=== PATIENT | male | born 1970 | race Caucasian/White ===

== ENCOUNTER 2016-08-19 00:39 | Emergency (ER) | payer MEDICAID ==
[2016-08-02 01:57] VITALS: BMI 35.0
[~2016-08-19 00:39] MED LIST: ADVIL200 MG PO; ASPIRIN 81 MG E81 MG PO; ASPIRIN325 MG PO; ATIVAN1 MG PO; AUGMENTIN 500-11 TA1 PO; BACTRIM DS TABL1 TAB PO; BAYER CHEWABLE81 MG PO; BUSPAR 15 MG TA15 MG PO; BYSTOLIC10 MG PO; BYSTOLIC5 MG PO; DEPAKOTE125 MG PO; DEPAKOTE250 MG PO; DEPAKOTE500 MG PO; DILANTIN100 MG PO; ELAVIL10 MG PO; HYDROCODONE-APA1 TAB PO; ISOSORBIDE MONO30 M1 PO; ISOSORBIDE MONO60 M1 PO; KEPPRA1000 MG PO; KEPPRA500 MG PO; LISINOPRIL2.5 MG GT; LITHIUM CARBON300 MG PO; LOPRESSOR25 MG PO; NICODERM C1 PATCH .3 TRANSDERM; NORCO 7.5/325 T1 TA1 PO; NORVASC10 MG PO; NORVASC5 MG PO; PAXIL20 MG PO; PAXIL40 MG PO; PHENOBARBITAL97.2 MG PO; PHENYTEK300 MG PO; PLAVIX75 MG PO; RANEXA1000 MG PO; SEROQUEL100 MG PO; STERAPRED DS 1010 MG PO; ULTRAM50 MG PO; XANAX0.25 MG; XANAX0.5 MG PO; ZIAC; ZOCOR20 MG PO; ZOCOR40 MG PO; ZOLOFT25 MG PO
[2016-08-19 01:27] LABS: BASOPHILS 0.3 % (0.0-2.0); EOSINOPHILS 4.2 % (0-7); HEMATOCRIT 39.6 % (42.0-54.0); HEMOGLOBIN 13.3 g/dL (13.5-17.5); IMMATURE GRANULOCYTES 0.3 % (0-5); LYMPHOCYTES 41.9 % (15-50); MCHC 33.6 g/dL (31.0-37.0); MCV 101.3 fL (80.0-100.0); MEAN PLATELET VOLUME 9.8 fL (7.4-10.4); MONOCYTES 9.3 % (2-11); PLATELET COUNT 212 10x3/uL (130-400); RBC 3.91 10x6/uL (4.20-6.10); RDW 12.9 % (11.5-14.5); WBC 7.7 10x3/uL (4.8-10.8)
[2016-08-19 01:37] LABS: ALBUMIN 3.7 g/dL (3.4-5.0); ALKALINE PHOSPHATASE 75 U/L (46-116); ALT (SGPT) 80 U/L (10-68); BILIRUBIN - TOTAL 0.29 mg/dL (0.2-1.3); CALC OSMOLALITY 277 mosm/kg (275-300); CALCIUM 9.5 mg/dL (8.5-10.1); CARBON DIOXIDE 25.1 mmol/L (21.0-32.0); CHLORIDE - SERUM 102 mmol/L (98-107); CREATININE - SERUM 0.9 mg/dL (0.6-1.3); GLUCOSE 128 mg/dL (74-106); POTASSIUM - SERUM 3.7 mmol/L (3.5-5.1); PROTEIN - SERUM 7.1 g/dL (6.4-8.2); SODIUM 138 mmol/L (136-145); UREA NITROGEN 12 mg/dL (7-18); eGFR NON AFRICAN AMERICAN > 90 mL/min (90-120)
[2016-08-19 01:48] LABS: CKMB 4.3 U/L (0.0-3.6); CREATINE KINASE 541 UL (21-232)
[2016-08-19 01:52] LABS: TROPONIN-I < 0.017 ng/mL (0.000-0.060)
== END 2016-08-19 05:44 | disposition home or self-care (01) ==
LOC: D.ER 00:39
PROVIDERS: Emergency Medicine
DX: R07.9 Chest pain, unspecified (principal); I25.10 Atherosclerotic heart disease of native coronary artery without angina pectoris; F17.200 Nicotine dependence, unspecified, uncomplicated

== ENCOUNTER 2016-10-03 16:28 | Emergency (ER) | payer MEDICAID ==
[2016-08-02 01:57] VITALS: BMI 35.0
[2016-10-03 17:10] LABS: BASOPHILS 0.5 % (0.0-2.0); EOSINOPHILS 5.3 % (0-7); HEMATOCRIT 44.9 % (42.0-54.0); HEMOGLOBIN 14.9 g/dL (13.5-17.5); IMMATURE GRANULOCYTES 0.8 % (0-5); LYMPHOCYTES 37.8 % (15-50); MCH 34.1 pg (26.0-34.0); MCHC 33.2 g/dL (31.0-37.0); MCV 102.7 fL (80.0-100.0); MEAN PLATELET VOLUME 9.4 fL (7.4-10.4); MONOCYTES 10.9 % (2-11); NEUTROPHILS 44.7 % (40-80); PLATELET COUNT 217 10x3/uL (130-400); RBC 4.37 10x6/uL (4.20-6.10); RDW 12.8 % (11.5-14.5); WBC 8.3 10x3/uL (4.8-10.8)
[2016-10-03 17:26] LABS: ALBUMIN 3.9 g/dL (3.4-5.0); ALKALINE PHOSPHATASE 78 U/L (46-116); ALT (SGPT) 89 U/L (10-68); AMYLASE - SERUM 27 U/L (25-115); BILIRUBIN - TOTAL 0.32 mg/dL (0.2-1.3); CALCIUM 8.4 mg/dL (8.5-10.1); CARBON DIOXIDE 27.9 mmol/L (21.0-32.0); CHLORIDE - SERUM 102 mmol/L (98-107); LIPASE 204 U/L (73-393); PROTEIN - SERUM 7.9 g/dL (6.4-8.2); SODIUM 140 mmol/L (136-145); UREA NITROGEN 10 mg/dL (7-18); eGFR NON AFRICAN AMERICAN 86 mL/min (90-120)
[2016-10-03 17:38] LABS: CALC OSMOLALITY 282 mosm/kg (275-300); GLUCOSE 190 mg/dL (74-106)
[2016-10-03 18:23] LABS: APPEARANCE CLEAR (CLEAR); BILIRUBIN NEGATIVE (NEGATIVE); COLOR YELLOW (YELLOW); GLUCOSE NEGATIVE (NEGATIVE); KETONE NEGATIVE (NEGATIVE); LEUKOCYTE ESTERASE NEGATIVE (NEGATIVE); NITRITE NEGATIVE (NEGATIVE); PROTEIN NEGATIVE (NEGATIVE); UROBILINOGEN NORMAL (NORMAL)
== END 2016-10-03 21:10 | disposition home or self-care (01) ==
LOC: D.ER 16:28
PROVIDERS: Emergency Medicine
DX: R10.9 Unspecified abdominal pain (principal); F17.200 Nicotine dependence, unspecified, uncomplicated; I25.810 Atherosclerosis of coronary artery bypass graft(s) without angina pectoris

== ENCOUNTER 2016-10-16 09:11 | Day surgery (SDC) | payer MEDICAID ==
[~2016-10-16] VITALS: Ht 185.4 cm; Wt 116.4 kg
[2016-10-16 10:44] LABS: HEMATOCRIT 41.4 % (42.0-54.0); HEMOGLOBIN 13.7 g/dL (13.5-17.5); MCH 33.7 pg (26.0-34.0); MCHC 33.1 g/dL (31.0-37.0); MEAN PLATELET VOLUME 9.7 fL (7.4-10.4); RBC 4.06 10x6/uL (4.20-6.10); RDW 12.7 % (11.5-14.5); WBC 7.8 10x3/uL (4.8-10.8)
[2016-10-16 10:47] VITALS: BP 140/83; Ht 185.4 cm; Wt 116.4 kg
[2016-10-16 10:54] LABS: CALC OSMOLALITY 279 mosm/kg (275-300); CALCIUM 8.7 mg/dL (8.5-10.1); CARBON DIOXIDE 28.5 mmol/L (21.0-32.0); CHLORIDE - SERUM 104 mmol/L (98-107); CREATININE - SERUM 1.1 mg/dL (0.6-1.3); POTASSIUM - SERUM 3.9 mmol/L (3.5-5.1); SODIUM 141 mmol/L (136-145); UREA NITROGEN 8 mg/dL (7-18); eGFR NON AFRICAN AMERICAN 77 mL/min (90-120)
[2016-10-16 10:58] LABS: GLUCOSE 114 mg/dL (74-106)
--- NOTE | 2016-10-16 11:38 | NUR ---
PATIENT NOTIFIED OF SURGICAL DELAY.
[2016-10-16] MEDS ORDERED: NORCO 7.5/325 T1 TA1 PO (15:43)
--- NOTE | 2016-10-16 18:10 | NUR ---
PATIENT AMBULATES TO BATHROOM AND VOIDS LARGE AMOUNT IN TOILET WITHOUT DIFFICULTY. O2 OFF, WILL RECHECK O2 SAT. LEFT WRIST PIV DC'D WITH TIP INTACT, PATIENT DRESSING IN PERSONAL CLOTHING
--- NOTE | 2016-10-16 18:25 | NUR ---
O2 SAT 95% ON ROOM AIR. DISCHARGE INSTRUCTIONS REVIEWED. PATIENT DISCHARGED HOME VIA WHEELCHAIR TO PRIVATE VEHICLE WITH MOTHER
--- NOTE | 2016-10-17 08:23 | OP ---
PATIENT NAME: TORI MATTSON MEDICAL RECORD: [id number] :72 LOCATION:[facility] ADMISSION DATE: SURGEON: TORI PETERS MD DATE OF OPERATION: 10/16/2016 SURGEON: Tori Peters MD PREOPERATIVE DIAGNOSES: 1. Symptomatic cholelithiasis. 2. Right upper quadrant pain. 3. Coronary artery disease 4. Alcoholism. POSTOPERATIVE DIAGNOSES: 1. Gangrenous cholecystitis. 2. Right upper quadrant pain. 3. Coronary artery disease 4. Alcoholism. ANESTHESIA: General. COMPLICATIONS: None. SPECIMENS: Gallbladder. Case was contaminated. ESTIMATED BLOOD LOSS: 70 cc. OPERATIVE COURSE: After consent was obtained, the patient was taken to the operating room and placed in the supine position on the operating table. Next, general anesthesia was given via endotracheal intubation after a timeout was taken to confirm the correct patient and procedure. Next, the abdomen was prepped and draped in typical sterile fashion. Local anesthetic was injected just above the umbilicus. A stab incision was made with 11-blade scalpel. Using a 5-mm bladeless optical trocar, the abdomen was entered under direct laparoscopic vision. Adequate pneumoperitoneum was achieved. The abdominal cavity was inspected. No evidence of bowel injury. No evidence of bleeding. The patient was then placed in the steep reverse Trendelenburg position. All remaining trocars were then placed after the administration of local anesthetic, two 5-mm trocars in the right upper quadrant and 11-mm trocar in the subxiphoid position. The gallbladder was densely adherent to the greater omentum, significant amount of dissection was performed. It appeared the omentum had walled off and episode of gangrenous cholecystitis. Once the gallbladder was freed in the omentum, it was markedly indurated, was unable to grasp. At this time, a decompression needle was inserted through the 5-mm trocar and the gallbladder was decompressed. At this time, the gallbladder was grasped and retracted cephalad. The infundibulum was grasped and retracted laterally. The peritoneum was incised using electrocautery. Blunt dissection was then performed with a [place] dissector and the suction movement assembler until the critical view was obtained cystic, there was an anterior and posterior branches of cystic artery ____ the cystic duct, 2 clips were placed on both branches of cystic artery, both arteries were transected, 2 clips were then placed in the proximal cystic duct and the cystic duct was transected with sharp dissection. Remaining portion of the gallbladder was dissected off the liver bed using electrocautery. OPERATIVE REPORT [id number] TORI MATTSON Once complete, it was grasped with the tenaculum and removed through the 11-mm trocar and sent for permanent pathology. The operative site was copiously irrigated and suctioned. Careful attention was paid to hemostasis, which was obtained in the liver bed using electrocautery. The entire abdominal cavity was inspected as well as the operative field. There is no evidence of bowel injury. No evidence of bleeding, no evidence of bile leak. At this time, all remaining instruments were removed. The abdomen was desufflated. Trocars removed. The skin was closed with 4-0 Monocryl, Mastisol and Steri-Strips. At the end of the case, all needle and instrument counts were correct. No complications occurred. TRANSINT:[id number] Voice Confirmation ID: [id number] DOCUMENT ID: [id number] TORI PETERS MD at 0823 CC: [id number] DICTATION DATE: 10/16/16 1551 P D DRIVER: 10/16/16 6810 [facility] 10/16/16 [id number] [place] [address]
== END 2016-10-16 18:25 | disposition home or self-care (01) ==
LOC: D.OPS 09:11 → D.PAN 11:30 → D.OPS 18:25
PROVIDERS: Anesthesiology
DX: K80.10 Calculus of gallbladder with chronic cholecystitis without obstruction (principal); I25.10 Atherosclerotic heart disease of native coronary artery without angina pectoris; F10.20 Alcohol dependence, uncomplicated

== ENCOUNTER 2016-12-18 12:11 | Emergency (ER) | payer MEDICAID ==
[2016-10-16 10:47] VITALS: BMI 33.8
[2016-12-18 12:51] LABS: BASOPHILS 0.4 % (0-2); EOSINOPHILS 4.7 % (0-7); HEMATOCRIT 46.6 % (42.0-54.0); HEMOGLOBIN 15.7 g/dL (13.5-17.5); IMMATURE GRANULOCYTES 0.5 % (0-5); LYMPHOCYTES 28.8 % (15-50); MCHC 33.7 g/dL (31.0-37.0); MCV 100.9 fL (80.0-100.0); MEAN PLATELET VOLUME 9.8 fL (7.4-10.4); MONOCYTES 8.8 % (2-11); NEUTROPHILS 56.8 % (40-80); RBC 4.62 10x6/uL (4.20-6.10); RDW 13.2 % (11.5-14.5); WBC 7.9 10x3/uL (4.8-10.8)
[2016-12-18 12:52] LABS: PLATELET COUNT 210 10x3/uL (130-400)
[2016-12-18 13:17] LABS: ALBUMIN 4.1 g/dL (3.4-5.0); ALKALINE PHOSPHATASE 89 U/L (46-116); ALT (SGPT) 162 U/L (10-68); BILIRUBIN - TOTAL 0.32 mg/dL (0.2-1.3); CALC OSMOLALITY 274 mosm/kg (275-300); CALCIUM 9.4 mg/dL (8.5-10.1); CARBON DIOXIDE 26.4 mmol/L (21.0-32.0); CHLORIDE - SERUM 98 mmol/L (98-107); GLUCOSE 202 mg/dL (74-106); POTASSIUM - SERUM 4.3 mmol/L (3.5-5.1); PROTEIN - SERUM 8.2 g/dL (6.4-8.2); SODIUM 135 mmol/L (136-145); UREA NITROGEN 11 mg/dL (7-18); eGFR NON AFRICAN AMERICAN 86 mL/min (90-120)
[2016-12-18 13:29] LABS: CHOL - HDL RATIO 10.5 ratio (2.3-4.9); CHOLESTEROL, TOTAL 272 mg/dL (0-200); CKMB 2.1 U/L (0.0-3.6); CREATINE KINASE 153 UL (21-232); HDL CHOLESTEROL 26 mg/dL (32-96); LDL CHOLESTEROL 171 mg/dL (0-100); LDL-HDL RATIO 6.6 ratio (1.5-3.5); TRIGLYCERIDE 376 mg/dL (30-200)
[2016-12-18 13:32] LABS: TROPONIN-I < 0.017 ng/mL (0.000-0.060)
== END 2016-12-18 13:30 | disposition left against medical advice (07) ==
LOC: D.ER 12:11
PROVIDERS: Emergency Medicine
DX: I42.9 Cardiomyopathy, unspecified (principal); I25.10 Atherosclerotic heart disease of native coronary artery without angina pectoris; R00.0 Tachycardia, unspecified

== ENCOUNTER → 2017-02-09 07:34 | Outpatient (CLI) | payer MEDICAID ==
[2016-10-16 10:47] VITALS: BMI 33.8
--- NOTE | ~2017-02-09 | ST ---
PATIENT:TORI MATTSON MEDICAL RECORD: [id number] SEX: M LOCATION:[facility] ORDER #: ADMISSION DATE: 02/09/17 AGE OF PATIENT: 46 REFERRING PHYSICIAN: INTERPRETING PHYSICIAN: ANUPAMA JOHNSON MD NUCLEAR STRESS TEST GATED IMAGING: Gated SPECT reveals a preserved ejection fraction of 57% with good wall motion, thickening, and brightening throughout all segments. SPECT: SPECT imaging was performed using Cardiolite as the myocardial perfusion imaging agent. There is homogeneous uptake throughout all segments but no evidence of inducible ischemia or previous infarction. OVERALL IMPRESSION: 1. This is a normal nuclear stress test with no evidence of inducible ischemia or previous infarction. 2. Gated SPECT reveals a preserved ejection fraction of 57%. 3. In this patient with ongoing symptomatology, the current scan has a low likelihood of hemodynamically significant coronary artery disease. 4. Would evaluate noncardiac etiology chest discomfort. ANUPAMA JOHNSON MD CC: [id number] DICTATION DATE: 02/09/17 1258 [facility]: TC 02/10/17 1258 [facility] CLI 02/09/17 [address] [place] [address]
== END | disposition home or self-care (01) ==
LOC: D.NM 07:34
DX: I25.119 Atherosclerotic heart disease of native coronary artery with unspecified angina pectoris (principal)

== ENCOUNTER → 2018-08-19 09:07 | Outpatient (CLI) | payer MEDICARE ==
[~2018-08-19] VITALS: Ht 185.4 cm; Wt 104.5 kg
--- NOTE | ~2018-08-19 | HEMODYNAMI ---
PATIENT:TORI MATTSON MEDICAL RECORD: [id number] : 72 LOCATION:[facility] ADMISSION DATE: 08/19/18 Generatedon:08/19/201815:55 Patient name: TORI MATTSON Patient #: [id number] SSN: : Date of study: 08/19/2018 Page: Of Hemodynamic Procedure Report Patient Data Patient Demographics Procedure consent was obtained First Name: TORI Gender: Male Last Name: SRINIVASAN : 1970 [facility] Initial: SIMRAN MOLINA Age: 48 year(s) Patient #: [id number] Race: Additional ID: [id number] Contact details [address]: [address] [place] [address] [place] State: [place] City: [place] Zip code: [address] Past Medical History History of disease Date Diagnosis Comments CAD Previous OK->ST elevation OK Allergies: No known allergies Admission Admission Data Admission Date: 08/19/2018 Admission Time: 9:07 Procedure Procedure Types Cath Procedure Diagnostic Procedure LHC LHC w/Coronaries w/Grafts Sedation Charges Moderate Sedation up to 45 minutes PCI Procedure AMI/SVG/OPERATIONAL METEOROLOGIST PTCA or Stent SVG-BMS/GARRY Initial Procedure Description Procedure Date Procedure Date: 08/19/2018 Procedure Start Time: 15:05 Procedure End Time: 15:54 Procedure Staff Name Function Franki Robles MD Performing Physician Alissa Rand RT Monitor Margie Calderon RN Nurse Bandar Celis RT Scrub Martin Cruz RN Landing Scaler Procedure Data Cath Procedure Fluoroscopy Diagnostic fluoroscopy Total fluoroscopy Time: time: 12.9 min 12.9 min Diagnostic fluoroscopy Total fluoroscopy dose: dose: 1250 mGy 1250 mGy Contrast Material Contrast Material Type Amount (ml) Isovue 300 192 Entry Location Entry Primary Successful Side Size Upsize Upsize Entry Closure Succes sful Closure Location (Fr) 1 (Fr) 2 (Fr) Remarks Device Remarks Femoral Right 5 Fr 6 Fr Exoseal artery Short Estimated blood loss: 10 ml Diagnostic catheters Device Type Used For End Catheter Placement MULTIPACK JL 4.0 5Fr Left Coronary catheter Angiography DIAGNOSTIC AR MOD 5Fr Right Coronary Catheter ([id number]) Angiography DIAGNOSTIC IM 5Fr Internal mammary catheter ([id number]) arteriography MULTIPACK Pigtail 5 Fr LV Angiography catheter Procedure Complications No complications Procedure Medications Medication Administration Route Dosage 0.9% NaCl I.V. 100 ml/hr Oxygen etCO2 Nasal cannula 2 l/min Lidocaine 2% added to field 20 Heparin Flush Bag added to field 2 bags (1000units/500ml NS) Versed I.V. 2 mg Fentanyl I.V. 50 mcg Versed I.V. 2 mg Fentanyl I.V. 50 mcg Versed I.V. 2 mg Heparin Bolus I.V. 90316 units Nitroglycerin IC/IA I.C. 100 mcg Brilinta P.O. 180 mg Hemodynamics Rest Heart Rate: 69 (bpm) Pressure Samples Time Site Value (mmHg) Purpose Heart Use Rate(bpm) 15:17 LV 102/-8,8 Snapshot 73 Gradients Valve Time Site Site Mean SEP/DFP Peak To Heart Use 1 2 (mmHg) (sec/min) Peak Rate (mmHg) (bpm) Aortic 15:18 LV AO 84 Snapshots Pre Cath Intra NCS Post Cath Vital Signs Time Heart Resp SPO2 etCO2 NIBP Rhythm Pain Sedation Rate (ipm) (%) (mmHg) (mmHg) Status Level (bpm) 14:52:43 71 12 100 23.9 114/66(82) NSR 0 (11) 10(A) , No pain 14:56:59 82 13 98 35.9 99/58(83) NSR 0 (11) 10(A) , No pain 15:01:11 81 15 97 35.8 112/58(82) NSR 0 (11) 10(A) , No pain 15:05:27 87 13 96 36.7 100/60(89) NSR 0 (11) 10(A) , No pain 15:09:39 73 15 98 38.1 112/62(82) NSR 0 (11) 10(A) , No pain 15:13:57 83 14 98 12.7 114/59(78) NSR 0 (11) 9(A) , No pain 15:18:13 84 16 97 35.8 94/54(71) NSR 0 (11) 9(A) , No pain 15:22:25 85 17 96 38.9 95/53(79) NSR 0 (11) 9(A) , No pain 15:26:35 82 15 97 35.1 96/59(82) NSR 0 (11) 9(A) , No pain 15:30:47 69 16 98 41.9 106/58(72) NSR 0 (11) 9(A) , No pain 15:34:57 79 14 96 41.8 97/58(76) NSR 0 (11) 9(A) , No pain 15:39:11 81 13 97 41.8 97/53(86) NSR 0 (11) 9(A) , No pain 15:43:20 85 10 97 38.1 104/57(73) NSR 0 (11) 9(A) , No pain 15:47:32 92 13 98 35.9 88/56(81) NSR 0 (11) 9(A) , No pain 15:51:42 79 12 98 38.8 101/58(82) NSR 0 (11) 10(A) , No pain Medications Time Medication Route Dose Verified Delivered Reason Notes Effectiveness by by 14:51:55 0.9% NaCl I.V. 100 Franki Margie used for ml/hr Travis Calderon adoption specialist 14:52:03 Oxygen etCO2 2 Franki Margie used for Nasal l/min Travis Calderon procedure cannula RN 14:52:08 Lidocaine 2% added 20ml Franki Franki for local to vial Travis Robles MD anesthetic field 14:52:16 Heparin Flush added 2 Franki Franki used for Bag to bags Travis Robles MD procedure (1000units/500ml field NS) 15:00:50 Versed I.V. 2 mg Franki Margie for sedation Travis Calderon RN 15:01:04 Fentanyl I.V. 50 Franki Margie for sedation mcg Travis Calderon RN 15:07:21 Versed I.V. 2 mg Franki Margie for sedation Travis Calderon RN 15:07:25 Fentanyl I.V. 50 Franki Margie for sedation mcg Travis Calderon RN 15:11:13 Versed I.V. 2 mg Franki Margie for sedation Travis Calderon RN 15:30:30 Heparin Bolus I.V. 00970 Franki Margie for verif ied units Travis Calderon anticoagulation with Dr. ROGER Robles 15:46:29 Nitroglycerin I.C. 100 Franki Franki for IC/IA mcg Travis Robles MD vasodilation 15:53:36 Brilinta P.O. 180 Franki Hanson for mg Travis Calderon antiplatelet RN therapy Procedure Log Time Note 14:38:18 Martin Cruz RN sent for patient. Start room use. 14:38:19 Time tracking: Regular hours (M-F 7:00 - 5:00) 14:38:22 Plan of Care:Hemodynamics will remain stable., Cardiac rhythm will remain stable., Comfort level will be maintained., Respiratory function will remain adequate., Patient/ family verbilizes understanding of procedure., Procedure tolerated without complication., Recovers from procedure without complications.. 14:45:11 Patient received from ED to CCL 1 Alert and oriented. Tansferred to table in Supine position. 14:45:12 Warm blankets applied, and ana hugger turned on for patient comfort. 14:45:13 Correct patient and procedure confirmed by team. 14:45:14 Signed procedure consent form obtained from patient. 14:45:15 ECG and BP/O2 sat monitors applied to patient. 14:45:22 Pre-procedure instructions explained to patient. 14:45:22 Pre-op teaching completed and patient verbalized understanding. 14:51:35 Vital chart was started 14:51:55 0.9% NaCl 100 ml/hr I.V. was administered by Margie Calderon RN; used for procedure; 14:52:03 Oxygen 2 l/min etCO2 Nasal cannula was administered by Margie Calderon RN; used for procedure; 14:52:08 Lidocaine 2% 20ml vial added to field was administered by Franki Robles MD; for local anesthetic; 14:52:16 Heparin Flush Bag (1000units/500ml NS) 2 bags added to field was administered by Franki Robles MD; used for procedure; 14:52:50 Baseline sample Acquired. 14:52:53 Rhythm: sinus rhythm 14:52:54 Full Disclosure recording started 14:53:02 H&P Date Dictated: 08/19/2018 Within 30 days and on chart.. 14:53:20 Family in waiting room. 14:53:22 Patient NPO since Midnight. 14:53:29 Patient allergic to No known allergies 14:53:31 Is the patient allergic to Iodine/contrast media? No. 14:53:33 Is patient on blood thinner?No 14:53:34 Patient diabetic? No. 14:57:48 Previous problem with sedation/anesthesia? No ? 14:58:07 Snore? Yes 14:58:08 Sleep apnea? No 14:58:09 Deviated septum? No 14:58:10 Opens mouth fully? Yes 14:58:11 Sticks out tongue? Yes 14:58:13 Airway obstruction? No ? 14:58:15 Dentures? No ? 14:58:17 Pre procedure: right dorsailis pedis pulse 2+ Normal; easily identifiable; not easily obliterated 14:58:19 Patient pain scale 0/10 ?. 14:58:25 IV patent on arrival in right antecubital with 0.9% NaCl at O. 14:58:28 Lab results completed and on chart. 14:58:40 Right groin area was prepped with chlora-prep and draped in sterile fashion 14:58:41 Alarms reviewed by R. N. 14:58:42 Sharps counted by scrub and verified by R.N. 14:58:46 Use device set Femoral Dx 14:58:47 ACIST Syringe (25336) opened to sterile field. 14:58:48 Bag Decanter (2002S) opened to sterile field. 14:58:48 Medline Cath Pack ([id number]) opened to sterile field. 14:58:49 DIAGNOSTIC WIRE .035 260cm J wire (912904) opened to sterile field. 14:58:50 ACIST Hand Control (17978) opened to sterile field. 14:58:51 ACIST Manifold (41889) opened to sterile field. 14:58:51 DIAGNOSTIC Multipack 5Fr catheter set (DF5120) opened to sterile field. 14:58:52 Tegaderm 4 x 4 (1626W) opened to sterile field. 14:58:53 SHEATH 5FR [place] (LRC112) opened to sterile field. 14:59:43 Final Timeout: patient, procedure, and site verified with staff and physician. All members of the team are in agreement. 14:59:45 Right groin site verified by team. 14:59:48 Physical assessment completed. ASA score P 2 - A patient with mild systemic disease as per Franki Robles MD. 14:59:51 Sedation plan: IV Moderate Sedation Medication:Versed, Fentanyl 15:00:50 Versed 2 mg I.V. was administered by Margie Calderon RN; for sedation; 15:01:04 Fentanyl 50 mcg I.V. was administered by Margie Calderon RN; for sedation; 15:03:24 Zero performed for pressure channel P1 15:05:17 Procedure started. 15:05:23 Local anesthetic to right femoral artery with Lidocaine 2% by Franki Robles MD.INITIAL ACCESS ONLY 15:07:21 Versed 2 mg I.V. was administered by Margie Calderon RN; for sedation; 15:07:25 Fentanyl 50 mcg I.V. was administered by Margie Calderon RN; for sedation; 15:07:29 A 5 Fr sheath was inserted into the Right Femoral artery 15:07:59 A MULTIPACK JL 4.0 5Fr catheter was advanced over the wire and used for Left Coronary Angiography. 15:09:19 Catheter removed. 15:10:57 A DIAGNOSTIC AR MOD 5Fr Catheter ([id number]) was advanced over the wire and used for Right Coronary Angiography. 15:11:13 Versed 2 mg I.V. was administered by Margie Calderon RN; for sedation; 15:13:17 Catheter removed. 15:14:25 A DIAGNOSTIC IM 5Fr catheter ([id number]) was advanced over the wire and used for Internal mammary arteriography. TO LAD 15:16:31 Catheter removed. 15:16:46 A MULTIPACK Pigtail 5 Fr catheter was advanced over the wire and used for LV Angiography. 15:18:05 LV gram done using ORTIZ 15:18:14 EF : 50 % 15:18:16 Injector settings: Ml/sec: 10, Volume: 20, 15:18:17 Catheter removed. 15:18:20 Use device set ROBLES PCI 15:18:23 SHEATH 6FR [place] (GZT900) opened to sterile field. 15:18:28 TUBING High Pressure Extension Tubing (Travis) ([id number]) opened to sterile field. 15:18:29 INFLATOR Merit BasixCompak (RA1771) opened to sterile field. 15:18:31 BMW 300cm [place] 2 J wire (9107419T) opened to sterile field. 15:18:54 GUIDE 6FR GENNARO 90 catheter ([id number]) opened to sterile field. 15:19:59 Sheath upsized to a 6 Fr Short. 15:21:19 6 Fr GENNARO 90 guide catheter was inserted over the wire 15:28:05 CHOICE FLOPPY wire advanced. 15:28:28 CHOICE Floppy Straight 300cm guide wire ([id number]) opened to sterile field. 15:30:30 Heparin Bolus 48140 units I.V. was administered by Margie Calderon RN; for anticoagulation; verified with Dr. Robles 15:33:18 Inflate balloon Inflation number: 1 A EMERGE OTW 2.0 x 15 balloon ([id number]) was prepped and advanced across the PORTILLO -> Mid LAD, then inflated to 12 SHAQUILLE for 0:27 (min:sec). 15:36:50 Balloon removed over the wire. 15:42:25 Place stent Inflation Number: 2 A WARNER OTW 2.75 x 18 stent ([id number]) was prepped and advanced across the PORTILLO -> Mid LAD. The stent was deployed at 15 SHAQUILLE for 0:33 (min:sec). 15:42:57 Stent catheter was removed intact over wire. 15:46:29 Nitroglycerin IC/IA 100 mcg I.C. was administered by Franki Robles MD; for vasodilation; 15:49:23 Wire removed. 15:49:26 Guide catheter removed. 15:49:36 Sheath removed intact; hemostasis achieved with Exoseal to the Right Femoral artery. 15:49:40 EXOSEAL 6Fr (EX600) opened to sterile field. 15:49:45 Procedure ended.(Physican Out) 15:50:04 Fluoroscopy time 12.90 minutes. 15:50:11 Flurop Dose total: 1250 15:50:11 Fluoroscopy dose: 1250 mGy 15:50:16 Contrast amount:Isovue 300 192ml. 15:50:23 Sharps counted by scrub and verified by R.N. 15:50:24 Insertion/operative site no bleeding no hematoma. 15:50:26 Post-op/insertion site Right Femoral artery dressed using a 4 x 4 and Tegaderm. 15:50:30 Post right femoral artery:stable, clean and dry 15:50:31 Post Procedure Pulses reassessed and unchanged 15:50:35 Post-procedure physical assessment completed. ASA score P 2 - A patient with mild systemic disease as per Franki Robles MD. 15:50:37 Post procedure rhythm: unchanged. 15:50:49 Estimated blood loss: 10 ml 15:50:51 Post procedure instruction explained to patient.Patient verbalizes understanding. 15:50:51 Patient needs reinforcement of post procedure teaching. 15:51:32 Procedure type changed to Cath procedure, Diagnostic procedure, LHC, LHC w/Coronaries w/Grafts, Sedation Charges, Moderate Sedation up to 45 minutes, PCI procedure, AMI/SVG/OPERATIONAL METEOROLOGIST PTCA or Stent, SVG-BMS/GARRY Initial 15:53:25 Procedure Complication : No complications 15:53:33 See physician's report for complete and final results. 15:53:36 Brilinta 180 mg P.O. was administered by Margie Calderon RN; for antiplatelet therapy; 15:54:31 Procedure and supply charges have been captured, reviewed, submitted and are correct. 15:54:37 Vital chart was stopped 15:54:39 Report given to Pre/Post Procedure Room. 15:54:42 Patient transfered to Pre/Post Procedure Room with Stretcher. 15:54:56 Procedure ended. 15:54:56 Full Disclosure recording stopped 15:55:01 End room use (Document Last) Intervention Summary Intervention Notes Time ActionType Lesion and Equipment Action# Pressure Duration Attributes Used 15:33:18 Inflate PORTILLO -> Mid EMERGE OTW 1 12 00:27 balloon LAD 2.0 x 15 balloon ([id number]) 15:42:25 Place stent PORTILLO -> Mid WARNER OTW 2.75 2 15 00:33 LAD x 18 stent ([id number]) Device Usage Item Name Manufacture Quantity Catalog Number [facility] Part [facility] Lot# / Charge Number Stock Stock Serial# Code ACIST Syringe Acist 1 03252 123798 505230 337141 20 (51175) Medical Systems Inc Bag Decanter Microtek 1 058561 94629 403600 5 () Medical Inc. Medline Cath Medline 1 [id number] 601879 14606 588825 5 Pack ([id number]) DIAGNOSTIC [place] 1 387648 094081 943873 164415 30 WIRE .035 260cm J wire (528413) ACIST Hand Acist 1 52172 410618 927113 800179 5 Control Medical (28908) Systems Inc ACIST Acist 1 29573 823651 108862 666626 5 Manifold Medical (88049) Systems Inc DIAGNOSTIC Cardinal 1 [id number] 783865 45474 461507 30 Multipack 5Fr Health catheter set (DA4051) Tegaderm 4 x 3M 1 1626W 184254 563228 857121 5 4 (1626W) SHEATH 5FR Terumo 1 ZGS920 225052 750393 201559 5 [place] (FZR223) MULTIPACK JL Cardinal 1 822679 5 4.0 5Fr Health catheter DIAGNOSTIC AR Cardinal 1 109495N 336403 638924 134909 15 MOD 5Fr Health Catheter (983724N) DIAGNOSTIC IM Cardinal 1 [id number] 992276 194413 646889 5 5Fr catheter Health (904738D) MULTIPACK Cardinal 1 989135 5 Pigtail 5 Fr Health catheter SHEATH 6FR Terumo 1 RPA674 450918 301418 145676 40 [place] (DPB886) TUBING High Merit 1 [id number] 017667 53830 771494 10 Pressure Medical Extension Tubing (Robles) (IL0567M) INFLATOR Merit 1 PK9634 217939 850276 516413 15 Merit Medical BasixCompak (MD6563) BMW 300cm Hogan 1 [id number] 472342 819769 618389 5 [place] 2 J Vascular wire (7421452T) GUIDE 6FR GENNARO Medtronic 1 [id number] 168060 09533 903904 1 90 catheter (HB6UFTI) CHOICE Floppy [place] 1 [id number] 247460 548935 744745 5 Straight Scientific 300cm guide wire (09450006) EMERGE OTW [place] 1 [id number] 277104 778902 079049 5 [id number] 2.0 x 15 Scientific balloon ([id number]) WARNER OTW 2.75 Medtronic 1 [id number] 591660 2511153 196717 5 [id number] x 18 stent ([id number]) EXOSEAL 6Fr Cardinal 1 EX600 152862 763487 791841 10 (EX600) Health Signature Audit [place] Stage Time Signature Unsigned Intra-Procedure 08/19/2018 Alissa 3:55:55 PM Counts RT(R) Signatures Monitor : Alissa Signature : Counts RT Date : Time : [address] [place] [address]
[~2018-08-19 09:07] MED LIST changes: +BRILINTA90 MG PO; +MINIPRESS1 MG; +RESTORIL15 MG PO; +SEROQUEL400 MG PO; +VIBRAMYCIN 100100 MG PO; +ZIAC 10-6.25 MG1 TAB PO
[2018-08-19 09:09] VITALS: Ht 185.4 cm; Wt 104.5 kg
[2018-08-19 09:23] LABS: BASOPHILS 0.4 % (0-2); EOSINOPHILS 5.5 % (0-7); HEMATOCRIT 46.4 % (42.0-54.0); HEMOGLOBIN 15.7 g/dL (13.5-17.5); IMMATURE GRANULOCYTES 0.3 % (0-5); LYMPHOCYTES 36.1 % (15-50); MCH 34.7 pg (26.0-34.0); MCHC 33.8 g/dL (31.0-37.0); MCV 102.4 fL (80.0-100.0); MONOCYTES 11.8 % (2-11); NEUTROPHILS 45.9 % (40-80); PLATELET COUNT 214 10x3/uL (130-400); RBC 4.53 10x6/uL (4.20-6.10); RDW 13.3 % (11.5-14.5); WBC 7.6 10x3/uL (4.8-10.8)
[2018-08-19 09:41] LABS: ALBUMIN 3.8 g/dL (3.4-5.0); ALKALINE PHOSPHATASE 73 U/L (46-116); ALT (SGPT) 45 U/L (10-68); BILIRUBIN - TOTAL 0.45 mg/dL (0.2-1.3); CALC OSMOLALITY 281 mosm/kg (275-300); CALCIUM 8.7 mg/dL (8.5-10.1); CARBON DIOXIDE 26.2 mmol/L (21.0-32.0); CHLORIDE - SERUM 102 mmol/L (98-107); CREATININE - SERUM 1.1 mg/dL (0.6-1.3); POTASSIUM - SERUM 4.1 mmol/L (3.5-5.1); SODIUM 139 mmol/L (136-145); UREA NITROGEN 19 mg/dL (7-18); eGFR NON AFRICAN AMERICAN 76 mL/min (90-120)
[2018-08-19 09:43] LABS: APTT 25.3 SECONDS (22.8-39.4); INR 0.99 (0.85-1.17); PROTIME 12.6 SECONDS (11.6-15.0)
[2018-08-19 09:44] LABS: GLUCOSE 142 mg/dL (74-106)
[2018-08-19 09:51] LABS: CKMB 2.5 U/L (0.0-3.6); CREATINE KINASE 222 UL (21-232); MAGNESIUM - SERUM 2.2 mg/dL (1.8-2.4); PRO BNP 28 pg/mL (0-125); TROPONIN-I < 0.017 ng/mL (0.000-0.060)
[2018-08-19 14:41] VITALS: BP 101/60
--- NOTE | 2018-08-19 16:25 | NUR ---
RECIEVED TO ROOM VIA STRETCHER FROM ANTIQUE CLOCK REPAIRER WITH FEMSTOP TO R/GROIN CDI PRESSURE AT 90 NO BLEEDING AT SITE. PATIENT CONNECTED TO MONITOR FOR OBSERVATION WITH HR 66 BP 109/59 CHEST PAIN IS DENIED. FAMILY AT BEDSIDE WITH DR BROCK PRESENT IN ROOM
--- NOTE | 2018-08-19 16:47 | NUR ---
PATIENT YELLING OUT LOUD IN PAIN. RATES PAIN AT 10 VERBALIZED HE COULD NOT STAND IT. DR BROCK NOTIFIE WITH ORDERS FOR 4 MG MORPHINE IV MEDICATION GIVEN DIRECTED.
--- NOTE | 2018-08-19 17:01 | NUR ---
PATIENT STILL RATES PAIN AT 10 AFTER 4 MG MORPHINE WITH FEMSTOP TO R/GROIN PRESSURE AT 90 NO BLEEDING NOTED
--- NOTE | 2018-08-19 17:13 | NUR ---
PATIENT YELLING OUT LOUD AND SCREAMING TO GET THE FEMSTOP OFF OF HIM NOW. STATING HE IS GOING TO WALK OUT. INFORMED PATIENT OF RISK TO BLEED IF FEMSTOP WAS REMOVED. PATIENT DEMANDING IT OFF. PRESSURE RELEASED WITH NO BLEEDING NOTED. WILL MONITOR
--- NOTE | 2018-08-19 17:33 | NUR ---
R/GROIN REMAINS CDI WITH NO BLEEDING OR HEMATOMA NOTED. PATIENT VERBALZIED RELIEF OF ALL PAIN. RESTING QUIETLY WITH EYES CLOSED
--- NOTE | 2018-08-19 18:09 | NUR ---
R/GROIN IS CDI WITH PAIN DENIED. VSS AND PATIENT TOLERATING SANDWICH AND SODA NAUSEA DENIED
--- NOTE | 2018-08-19 18:21 | NUR ---
REPOSITIONED TO SITTING WITH HOB UP30 FOR COMFORT. R/GROIN REMAINS CDI WITH CHEST PAIN DENIED.VERBAL AND WRITTEN DISCHARGE GONE OVER WITH PATIENT AND BOTH VERBALIZED UNDERSTANDING
--- NOTE | 2018-08-19 18:42 | NUR ---
DRESSING TO R/GROIN REMAINS CDI WITH VSS. PATIENT DENIED CHEST PAIN. PIV REMOVED WITH DRESSING APPLIED.
--- NOTE | 2018-08-19 18:50 | NUR ---
DRESSING TO R/GROIN REMAINS CDI WITH NO CHEST PAIN PATIENT UP TO GET DRESSED FOR DISCHARGE HOME
--- NOTE | 2018-08-19 19:03 | NUR ---
PATIENT LEFT VIA WC TO PARKING FOR TRANSPORT HOME CHEST PAIN DENIED AND DRESSING TO R/GROIN CDI NO DISTRESS
== END | disposition home or self-care (01) ==
LOC: D.ER 09:07 → D.CATH 09:07 → EDSTATUS 11:22
PROVIDERS: Family Medicine
DX: I25.110 Atherosclerotic heart disease of native coronary artery with unstable angina pectoris (principal); I25.82 Chronic total occlusion of coronary artery; I10 Essential (primary) hypertension; T82.855A Stenosis of coronary artery stent, initial encounter; Y83.8 Other surgical procedures as the cause of abnormal reaction of the patient, or of later complication, without mention of misadventure at the time of the procedure
CPT/HCPCS: 93459; C9604

== ENCOUNTER 2018-08-21 22:13 | Observation (INO) | payer MEDICARE ==
[~2018-08-21] VITALS: Ht 185.4 cm; Wt 103.0 kg
--- NOTE | ~2018-08-21 | EC ---
PATIENT:TORI MATTSON DATE OF SERVICE: 08/21/18 SEX: M MEDICAL RECORD: [id number] DATE OF : 72 LOCATION:[facility] D230 AGE OF PATIENT: 48 ADMISSION DATE: 08/21/18 REFERRING PHYSICIAN: INTERPRETING PHYSICIAN: TRUONG ALICEA MD ECHOCARDIOGRAM REPORT ECHO CHARGES 4 ECHO COMPLETE Date: 08/22/18 CLINICAL DIAGNOSIS: ACUTE DC ECHOCARDIOGRAPHIC MEASUREMENTS (adult normal given) AC root (d.<3.7cm) 3.5 cm LV Septum d (<1.2 cm> 1.6 cm Valve Excursion 1.4 cm LV Septum (systole) 1.9 cm Left Atria (s.<4.0cm> 3.3 cm LVPW d(<1.2cm) 1.9 cm RV (d.<2.3cm) 3.4 cm LVPW (sytole) 2.0 cm LV diastole(<5.6CM) 5.8 cm MV E-F(>70mm/sec) cm LV systole 4.4 cm LVOT Diameter 2.0 cm MV exc.(>10mm) 1.7 cm Est.ejection fraction (50-75%) % DOPPLER: LVIT cm/sec A 77.0 cm/sec E 56.0 cm/sec LA cm/sec RVSP 18 mmHg LVOT 91 cm/sec AOP1/2T m/s Asc. Ao 122 cm/sec RVOT 88 cm/sec RA cm/sec PA 105 cm/sec AV Gradient Peak 5.99 mmHg AV Mean 3.38 mmHg AV Area 2.0 cm MV Gradient Peak 5.69 mmHg MV Mean 2.33 mmHg MV Area cm COMMENTS: Customer Experience Manager: 2 FUNMILAYO DE LEON Weaving Professor: 3 Dr. Quintana TAPE# PACS Pericardial Effusion N DATE OF SERVICE: 08/22/2018 Adequate 2-D echo, color flow and spectral Doppler, and M-Mode LVH is present. LV internal dimensions are normal. There is hypokinesis of the anterior apex. Overall, LV function appears to be in lower limits of normal at 50%. Aortic valve sclerosis is without stenosis by Doppler interrogation. Left atrium is normal at 3.3 cm. Mitral valve shows no prolapse. Trace MR. Right-sided chamber is grossly normal. Mild TR. ECHOCARDIOGRAM REPORT [id number] TORI MATTSON TRANSINT:[id number] Voice Confirmation ID: [id number] DOCUMENT ID: [id number] TRUONG ALICEA MD CC: [id number] DICTATION DATE: 08/22/18 1315 CANDLE MAKER: 08/22/18 1422 DIS IN 08/22/[address] [facility] [address] [place] [address]
--- NOTE | ~2018-08-21 | HEMODYNAMI ---
PATIENT:TORI MATTSON MEDICAL RECORD: [id number] : 72 LOCATION:[facility] D.2301 ADMISSION DATE: 08/21/18 Generatedon:08/22/20180:06 Patient name: TORI MATTSON Patient #: [id number] SSN: : Date of study: 08/21/2018 Page: Of Hemodynamic Procedure Report Patient Data Patient Demographics Procedure consent was obtained First Name: TORI Gender: Male Last Name: SRINIVASAN : 1970 [facility] Initial: SIMRAN MOLINA Age: 48 year(s) Patient #: [id number] Race: Additional ID: [id number] Contact details [address]: [address] [place] [address] circle State: [place] City: [place] Zip code: [address] Past Medical History History of disease Date Diagnosis Comments CAD Previous NM->ST elevation NM Allergies: No known allergies Admission Admission Data Admission Date: 08/21/2018 Admission Time: 22:40 Room #: [facility] Procedure Procedure Types Cath Procedure Diagnostic Procedure LHC LHC w/Coronaries w/Grafts Sedation Charges Moderate Sedation up to 15 minutes Moderate Sedation up to 30 minutes PCI Procedure AMI/SVG/JAVA LEAD DEVELOPER PTCA or Stent SVG-BMS/GARRY Initial Procedure Description Procedure Date Procedure Date: 08/21/2018 Procedure Start Time: 23:18 Procedure End Time: 0:05 Procedure Staff Name Function Inocencio Cloud MD Performing Physician Andria Barney RT Monitor Namrata Mayfield RT Monitor Martin Cruz RN Nurse Andria Barney RT Scrub Procedure Data Cath Procedure Fluoroscopy Diagnostic fluoroscopy Total fluoroscopy Time: time: 18.3 min 18.3 min Diagnostic fluoroscopy Total fluoroscopy dose: dose: 1006 mGy 1006 mGy Contrast Material Contrast Material Type Amount (ml) Isovue 300 164 Entry Location Entry Primary Successful Side Size Upsize Upsize Entry Closure Succes sful Closure Location (Fr) 1 (Fr) 2 (Fr) Remarks Device Remarks Femoral Left 6 Fr Exoseal artery Short Estimated blood loss: 10 ml Diagnostic catheters Device Type Used For End Catheter Placement MULTIPACK JL 4.0 5Fr Procedure catheter MULTIPACK 3DRC 5Fr Procedure catheter DIAGNOSTIC JR 4 5Fr Procedure catheter ([id number]) Procedure Complications No complications Procedure Medications Medication Administration Route Dosage Oxygen NC 2 l/min Brilinta P.O. 90 mg Heparin Flush Bag added to field 2 bags (1000units/500ml NS) 0.9% NaCl I.V. 100 ml/hr Lidocaine 2% added to field 20 Fentanyl I.V. 50 mcg Versed I.V. 1 mg Fentanyl I.V. 50 mcg Versed I.V. 1 mg Fentanyl I.V. 50 mcg Versed I.V. 1 mg Integrilin (Bolus I.V. 9.5 ml 2mg/ml) Fentanyl I.V. 50 mcg Versed I.V. 1 mg Heparin Bolus I.V. 2000 units Nitroglycerin IC/IA I.C. 200 mcg Integrilin (Bolus wasted 0.5 ml 2mg/ml) Hemodynamics Rest Heart Rate: 118 (bpm) Snapshots Pre Cath Intra NCS Post Cath Vital Signs Time Heart Resp SPO2 NIBP (mmHg) Rhythm Pain Sedation Rate (ipm) (%) Status Level (bpm) 23:13:13 106 17 98 144/97(110) NSR 0 (11) 10(A) , No pain 23:17:19 115 17 97 121/88(101) NSR 0 (11) 10(A) , No pain 23:22:20 118 17 84 119/76(100) NSR 0 (11) 10(A) , No pain 23:26:30 111 17 94 114/79(109) NSR 0 (11) 9(A) , No pain 23:31:29 115 17 97 108/72(104) NSR 0 (11) 9(A) , No pain 23:35:35 115 17 96 100/69(96) NSR 0 (11) 9(A) , No pain 23:39:41 112 16 95 106/65(85) NSR 0 (11) 9(A) , No pain 23:44:38 108 17 97 121/73(84) NSR 0 (11) 9(A) , No pain 23:48:46 112 16 96 110/74(90) NSR 0 (11) 9(A) , No pain 23:52:54 112 16 96 123/80(100) NSR 0 (11) 9(A) , No pain 23:57:05 112 16 96 110/67(86) NSR 0 (11) 9(A) , No pain 0:02:05 113 16 97 104/74(99) NSR 0 (11) 9(A) , No pain 0:06:08 112 9 97 113/72(92) NSR 0 (11) 10(A) , No pain Medications Time Medication Route Dose Verified Delivered Reason Notes Effectiveness by by 23:12:53 Oxygen NC 2 Inocencio Martin Per physician l/min [facility] Placido Cruz RN, MD 23:15:25 Brilinta P.O. 90 mg Inocencio Martin for [facility] Placido Cruz RN antiplatelet MD therapy 23:15:54 Heparin Flush added 2 Inocencio Martin used for Bag to bags [facility] Placido Cruz RN procedure (1000units/500ml field URENA NS) 23:16:03 0.9% NaCl I.V. 100 Inocencio Martin Per physician ml/hr [facility] Plac[facility] Cruz RN, MD 23:16:15 Lidocaine 2% added 20ml Inocencio Martin used for to vial [facility] Placido Cruz RN procedure field URENA 23:18:16 Fentanyl I.V. 50 Inocencio Martin for sedation [facility] RN, MD 23:18:22 Versed I.V. 1 mg Inocencio Martin for sedation [facility] Plac[facility] Cruz RN, MD 23:19:28 Fentanyl I.V. 50 Inocencio Martin for sedation [facility] RN, MD 23:19:32 Versed I.V. 1 mg Inocencio Martin for sedation [facility] Pl[facility] Cruz RN, MD 23:23:09 Fentanyl I.V. 50 Inocencio Martin for sedation mcg [facility] Placido Cruz RN, MD 23:23:13 Versed I.V. 1 mg Inocencio Martin for sedation [facility] Placido Cruz RN, MD 23:23:30 Integrilin I.V. 9.5 Inocencio Martin for (Bolus 2mg/ml) ml St Placido petty MD 23:37:19 Fentanyl I.V. 50 Inocencio Martin for sedation [facility] RN, MD 23:41:36 Versed I.V. 1 mg Inocencio Martin for sedation [facility] Placido Cruz RN, MD 23:41:54 Heparin Bolus I.V. 2000 Inocencio Salazar for units [facility] Placido Cruz RN anticoagulation 23:58:15 Nitroglycerin I.C. 200 Inocencio Painter for IC/IA mcg Alviso [facility] vasodilation MD URENA 0:03:45 Integrilin wasted 0.5 Inocencio Salazar for (Bolus 2mg/ml) ml St Placido Cruz RN anticoagulation Procedure Log Time Note 22:48:26 Martin Cruz RN sent for patient. Start room use. 22:58:23 Diagnostic Cath status Urgent 22:58:29 Time tracking: Call back (After hours or weekends) 22:58:37 Plan of Care:Hemodynamics will remain stable., Cardiac rhythm will jeevan in stable., Comfort level will be maintained., Respiratory function will remain adequate., Patient/ family verbilizes understanding of procedure., Procedure tolerated without complication., Recovers from procedure without complications.. 22:58:43 Patient received from ED to CCL 1 Alert and oriented. Tansferred to tab le in Supine position. 23:06:28 Warm blankets applied, and ana hugger turned on for patient comfort. 23:06:28 Correct patient and procedure confirmed by team. 23:06:29 Signed procedure consent form obtained from patient. 23:06:30 ECG and BP/O2 sat monitors applied to patient. 23:11:04 Vital chart was started 23:12:53 Oxygen 2 l/min NC was administered by Martin Cruz RN; Per physician; 23:15:25 Brilinta 90 mg P.O. was administered by Martin Cruz RN; for antiplate let therapy; 23:15:54 Heparin Flush Bag (1000units/500ml NS) 2 bags added to field was admini stered by Martin Cruz RN; used for procedure; 23:16:03 0.9% NaCl 100 ml/hr I.V. was administered by Martin Cruz RN; Per phys ician; 23:16:15 Lidocaine 2% 20ml vial added to field was administered by Martin Cruz RN; used for procedure; 23:16:52 Baseline sample Acquired. 23:16:53 Full Disclosure recording started 23:17:00 H&P Date Dictated: 08/21/2018 Emergent; H&P N/A. 23:17:04 Pre-procedure instructions explained to patient. 23:17:31 Left groin area was prepped with chlora-prep and draped in sterile fash ion 23:17:36 Sharps counted by scrub and verified by R.N. 23:17:40 Physician arrived 23:17:40 --------ALL STOP TIME OUT------ 23:17:41 Final Timeout: patient, procedure, and site verified with staff and mirtha rodriguez. All members of the team are in agreement. 23:17:45 Left groin site verified by team. 23:17:51 Physical assessment completed. ASA score P 2 - A patient with mild syst emic disease as per Inocencio Cloud MD. 23:17:57 Use device set Femoral Dx 23:18:00 Procedure started. 23:18:04 Local anesthetic to left femerol artery with Lidocaine 2% by Inocencio Cloud MD.INITIAL ACCESS ONLY 23:18:16 Fentanyl 50 mcg I.V. was administered by Martin Cruz RN; for sedation ; 23:18:17 A 6 Fr Short sheath was inserted into the Left Femoral artery 23:18:22 Versed 1 mg I.V. was administered by Martin Cruz RN; for sedation; 23:18:53 ACIST Syringe (78550) opened to sterile field. 23:18:53 Bag Decanter (2002S) opened to sterile field. 23:18:55 Medline Cath Pack ([id number]) opened to sterile field. 23:18:56 DIAGNOSTIC WIRE .035 260cm J wire (068878) opened to sterile field. 23:18:57 ACIST Hand Control (61856) opened to sterile field. 23:18:58 ACIST Manifold (79242) opened to sterile field. 23:18:58 DIAGNOSTIC Multipack 5Fr catheter set (AS0983) opened to sterile field. 23:19:28 Fentanyl 50 mcg I.V. was administered by Martin Cruz RN; for sedation ; 23:19:32 Versed 1 mg I.V. was administered by Martin Cruz RN; for sedation; 23:19:35 A MULTIPACK JL 4.0 5Fr catheter was advanced over the wire and used for Procedure. 23:19:39 Catheter removed. 23:19:50 A MULTIPACK 3DRC 5Fr catheter was advanced over the wire and used for Procedure. 23:20:30 GUIDE 6FR LIONEL 90 catheter ([id number]) opened to sterile field. 23:20:35 Catheter removed. 23:20:48 6 Fr lionel guide catheter was inserted over the wire 23:21:30 WHISPER 300cm guide wire ([id number]) opened to sterile field. 23:21:39 INFLATOR Merit BasixCompak (EY3198) opened to sterile field. 23:22:44 WHISPER wire advanced. 23:23:09 Fentanyl 50 mcg I.V. was administered by Martin Cruz RN; for sedation ; 23:23:13 Versed 1 mg I.V. was administered by Martin Cruz RN; for sedation; 23:23:30 Integrilin (Bolus 2mg/ml) 9.5 ml I.V. was administered by Martin Cruz RN; for anticoagulation; 23:26:44 Guide catheter removed. 23:27:14 A DIAGNOSTIC JR 4 5Fr catheter ([id number]) was advanced over the wire and used for Procedure. 23:28:09 6 Fr JR4 guide catheter was inserted over the wire 23:28:37 WHISP wire advanced. 23:31:47 Guide catheter removed. 23:32:36 GUIDE 6FR LCB catheter (LA6LCB) opened to sterile field. 23:33:09 6 Fr LCB guide catheter was inserted over the wire 23:35:30 Guide catheter removed. 23:36:22 GUIDE 6FR 3DRC SH catheter ([id number]) opened to sterile field. 23:37:07 6 Fr 3drcSH guide catheter was inserted over the wire 23:37:19 Fentanyl 50 mcg I.V. was administered by Martin Cruz RN; for sedation ; 23:38:44 WHISP wire advanced. 23:39:35 Wire advanced across lesion. 23:41:36 Versed 1 mg I.V. was administered by Martin Cruz RN; for sedation; 23:41:54 Heparin Bolus 2000 units I.V. was administered by Martin Cruz RN; for anticoagulation; 23:42:00 Wire removed. 23:42:41 CHOICE PT Extra Support J 300cm guide wire ([id number]) opened to steril e field. 23:43:18 PT EX wire advanced. 23:44:19 Inflate balloon Inflation number: 1 A EMERGE OTW 3.0 x 15 balloon ([id number]) was prepped and advanced across the PORTILLO -> Mid LAD, then inflated to 8 SHAQUILLE for 0:17 (min:sec). 23:45:29 Inflation number: 2 The EMERGE OTW 3.0 x 15 balloon ([id number]) was reinflated across the PORTILLO -> Mid LAD, to 8 SHAQUILLE for 0:15 (min:sec). 23:47:43 Balloon removed over the wire. 23:48:06 -ADVANC ED 23:50:09 Place stent Inflation Number: 1 A WARNER RX 3.0 x 15 stent ([id number]) was prepped and advanced across the PORTILLO -> Mid LAD1. The stent was deployed at 14 SHAQUILLE for 0:22 (min:sec). 23:51:44 Stent catheter was removed intact over wire. 23:54:46 Place stent Inflation Number: 1 A WARNER RX 3.0 x 15 stent ([id number]) was prepped and advanced across the PORTILLO -> Mid LAD2. The stent was deployed at 16 SHAQUILLE for 0:11 (min:sec). 23:56:31 Stent catheter was removed intact over wire. 23:58:15 Nitroglycerin IC/IA 200 mcg I.C. was administered by Inocencio Cloud MD ; for vasodilation; 0:00:01 EXOSEAL 6Fr (EX600) opened to sterile field. 0:02:30 Guide catheter removed. 0:02:44 Sheath removed intact; hemostasis achieved with Exoseal to the Left Fem oral artery. 0:02:48 Procedure ended.(Physican Out) 0:03:33 Fluoroscopy time 18.30 minutes. 0:03:41 Flurop Dose total: 1006 0:03:41 Fluoroscopy dose: 1006 mGy 0:03:45 Integrilin (Bolus 2mg/ml) 0.5 ml wasted was administered by Martin suresh RN; for anticoagulation; 0:03:59 Contrast amount:Isovue 300 164ml. 0:04:01 Sharps counted by scrub and verified by R.N. 0:04:03 Insertion/operative site no bleeding no hematoma. 0:04:07 Post-op/insertion site Left Femoral artery dressed using a 4 x 4 and Te gaderm. 0:04:10 Post Procedure Pulses reassessed and unchanged 0:04:20 Post-procedure physical assessment completed. ASA score P 2 - A patient with mild systemic disease as per Inocencio Cloud MD. 0:04:28 Post procedure rhythm: unchanged. 0:04:31 Estimated blood loss: 10 ml 0:04:34 Post procedure instruction explained to patient.Patient verbalizes understanding. 0:05:17 Procedure type changed to Cath procedure, Diagnostic procedure, LHC, LH C w/Coronaries w/Grafts, Sedation Charges, Moderate Sedation up to 15 minutes, Moderate Sedation up to 30 minutes, PCI procedure, AMI/SVG/JAVA LEAD DEVELOPER PTCA or Stent, SVG-BMS/GARRY Initial 0:05:20 Procedure and supply charges have been captured, reviewed, submitted an d are correct. 0:05:26 Procedure Complication : No complications 0:05:29 Vital chart was stopped 0:05:29 See physician's report for complete and final results. 0:05:45 Report given to ICU. 0:05:50 Patient transfered to ICU with Bed. 0:05:53 Procedure ended. 0:05:53 Full Disclosure recording stopped 0:05:56 End room use (Document Last) Intervention Summary Intervention Notes Time ActionType Lesion and Equipment Used Action# Pressure Duration Attributes 23:44:19 Inflate PORTILLO -> Mid EMERGE OTW 3.0 1 8 00:17 balloon LAD x 15 balloon ([id number]) 23:45:29 Reinflate PORTILLO -> Mid EMERGE OTW 3.0 2 8 00:15 balloon LAD x 15 balloon ([id number]) 23:50:09 Place stent PORTILLO -> Mid WARNER RX 3.0 x 1 14 00:22 LAD1 15 stent ([id number]) 23:54:46 Place stent PORTILLO -> Mid WARNER RX 3.0 x 1 16 00:11 LAD2 15 stent ([id number]) Device Usage Item Name Manufacture Quantity Catalog Number Hospital Part Current Minimal Lot# / Charge Number Stock Stock Serial# Code ACIST Syringe Acist 1 56085 157772 576926 286906 20 (24971) Medical Systems Inc Bag Decanter Microtek 1 2001S 142120 20248 789770 5 () Medical Inc. Medline Cath Medline 1 [id number] 526524 71747 537132 5 Pack ([id number]) DIAGNOSTIC [facility] 1 284013 916477 151173 114722 30 WIRE .035 260cm J wire (524431) ACIST Hand Acist 1 59054 847516 434799 643125 5 Control Medical (90787) Systems Inc ACIST Manifold Acist 1 38468 311807 758327 035393 5 (91880) Medical Systems Inc DIAGNOSTIC Cardinal 1 AZ6046 498380 55289 448130 30 Multipack 5Fr Health catheter set (YP3811) MULTIPACK JL Cardinal 1 349589 5 4.0 5Fr Health catheter MULTIPACK 3DRC Cardinal 1 435799 5 5Fr catheter Health GUIDE 6FR LIONEL Medtronic 1 [id number] 371058 81577 424773 1 90 catheter (NN1XRLE) WHISPER 300cm Hogan 1 [id number] 263124 964674 662684 5 guide wire Vascular ([id number]) INFLATOR Merit Merit 1 NH8111 288483 280117 984265 15 [facility] Medical (CQ6207) DIAGNOSTIC JR Cardinal 1 [id number] 517881 428415 185995 5 4 5Fr catheter Health (684598A) GUIDE 6FR LCB Medtronic 1 LA6LCB 264231 96670 030256 1 catheter (LA6LCB) GUIDE 6FR 3DRC Medtronic 1 [id number] 732039 219228 424283 1 SH catheter ([id number]) CHOICE PT Austin 1 [id number] 979088 590755 694115 5 Extra Support Scientific J 300cm guide wire ([id number]) EMERGE OTW 3.0 Austin 1 [id number] 777696 439068 320998 5 [id number] x 15 balloon Scientific ([id number]) WARNER RX 3.0 x Medtronic 2 [id number] 872492 6551267 075533 5 [id number] 15 stent [id number] ([id number]) EXOSEAL 6Fr Cardinal 1 EX600 229667 332850 263109 10 (EX600) Health Signature Audit Gilbert Stage Time Signature Unsigned Intra-Procedure 08/22/2018 Namrata Mayfield 12:06:54 AM RT(R) Signatures Monitor : Andria Barney Signature : RT Date : Time : Monitor : Namrata Mayfield Signature : RT Date : Time : [place] [address] [place] [address]
[~2018-08-21 22:13] MED LIST changes: -MINIPRESS1 MG; -RESTORIL15 MG PO; -SEROQUEL400 MG PO; -VIBRAMYCIN 100100 MG PO; -ZIAC 10-6.25 MG1 TAB PO
[2018-08-21] MEDS ORDERED: PHENOBARBITAL97.2 MG PO (22:20)
[2018-08-21 22:38] LABS: HEMATOCRIT 45.6 % (42.0-54.0); HEMOGLOBIN 15.5 g/dL (13.5-17.5); LYMPHOCYTES 37.1 % (15-50); MEAN PLATELET VOLUME 8.4 fL (7.4-10.4); NEUTROPHILS 48.3 % (40-80); PLATELET COUNT 231 10x3/uL (130-400); RBC 4.56 10x6/uL (4.20-6.10); RDW 12.9 % (11.5-14.5); WBC 8.8 10x3/uL (4.8-10.8)
[2018-08-21 22:52] LABS: PROTIME 12.7 SECONDS (11.6-15.0)
[2018-08-21 22:56] LABS: ALBUMIN 3.5 g/dL (3.4-5.0); ALKALINE PHOSPHATASE 81 U/L (46-116); ALT (SGPT) 43 U/L (10-68); BILIRUBIN - TOTAL 0.29 mg/dL (0.2-1.3); CALC OSMOLALITY 273 mosm/kg (275-300); CALCIUM 8.2 mg/dL (8.5-10.1); CARBON DIOXIDE 23.8 mmol/L (21.0-32.0); CHLORIDE - SERUM 102 mmol/L (98-107); GLUCOSE 126 mg/dL (74-106); POTASSIUM - SERUM 3.6 mmol/L (3.5-5.1); PROTEIN - SERUM 7.9 g/dL (6.4-8.2); SODIUM 137 mmol/L (136-145); UREA NITROGEN 7 mg/dL (7-18); eGFR NON AFRICAN AMERICAN 85 mL/min (90-120)
[2018-08-21 23:07] LABS: CKMB 1.8 U/L (0.0-3.6); CREATINE KINASE 105 UL (21-232); MAGNESIUM - SERUM 1.6 mg/dL (1.8-2.4); TROPONIN-I 0.037 ng/mL (0.000-0.060)
[2018-08-22] VITALS (11 sets, daily range): BP systolic 97–140; BP diastolic 69–93; Ht 185.4 cm; Wt 103.0 kg
--- NOTE | 2018-08-22 08:55 | HP ---
PATIENT: TORI MATTSON MEDICAL RECORD: [id number] ACCOUNT: [id number] LOCATION[facility] D.2301 : 72 ADMISSION DATE: 08/21/18 PCP: KAN GUPTA MD HISTORY AND PHYSICAL EXAMINATION HISTORY OF PRESENT ILLNESS: A 48-year-old gentleman with known history of coronary artery disease, status post most recently intervention LAD through PORTILLO graft. By the patient report, he has been taking his Brilinta. Restenosis at that time, onset tonight 2 hours prior to admission. Aggression chest pain, found to have ST elevation anteriorly, brought to laboratory specialist on an urgent basis. PAST MEDICAL HISTORY: Includes: 1. History of coronary artery disease described above. 2. Hypertension. 3. Hyperlipidemia. ALLERGIES: ULTRAM. MEDICATIONS: Brilinta 90 p.o. b.i.d., amlodipine 10 every day, losartan every day, Ranexa 1 g b.i.d., pravastatin 40 every day, aspirin 81 every day, Depakote 1000 mg at bedtime, and phenobarbital 97.2 b.i.d. SOCIAL HISTORY: Nonsmoker, does use recreational marijuana, drinks occasionally. REVIEW OF SYSTEMS: The patient reports easy bruising but reports no swollen glands. The patient reports no fever, no night sweats, no significant weight gain, no significant weight loss. No significant exercise tolerance. The patient reports no dry eyes, no irritation, no vision change. Patient reports no difficulty hearing and no ear pain. Patient reports no frequent nose bleeds or nose and sinus problems. Patient reports on arm pain on exertion. No shortness of breath while lying down. No history of heart murmur. Patient reports no cough, no wheezing or coughing up blood. Patient reports no abdominal pain, no vomiting. Normal appetite. No diarrhea and not vomiting blood. No nausea and no constipation. Patient reports no incontinence. No difficulty urinating. No hematuria. No increased frequency. Patient reports no muscle aches. No weakness, no arthralgias, no back pain. No swelling of the extremities. Patient reports no abnormal mole, no jaundice, no rashes. Reports no loss of consciousness. No weakness and no numbness. No seizures, dizziness, or headaches. The patient reports no depression, no sleep disturbance, feeling safe in a relationship and no alcohol abuse. Patient reports on fatigue. Reports no runny nose or sinus pressure. No itching, no hives, and no frequent sneezing. PHYSICAL EXAMINATION: GENERAL: Middle-aged gentleman in mild distress. VITAL SIGNS: Blood pressure 124/64, pulse 60 and regular. HEENT: Normocephalic, atraumatic. NECK: No bruits noted. HEART: Regular, S4 gallop. LUNGS: Clear. ABDOMEN: Soft, nontender. EXTREMITIES: Pulse 2+. No edema. IMPRESSION: Acute myocardial infarction, acute stent thrombosis, suspected. HISTORY AND PHYSICAL [id number] TOIR MATTSON PLAN: Angiography intervention based on results above. TRANSINT:[id number] Voice Confirmation ID: [id number] DOCUMENT ID: [id number] TRUONG ALICEA MD at 0855 CC: [id number] DICTATION DATE: 08/21/18 230 JEWELRY SALES: 08/22/18 0039 ADM IN [facility] [address] [place] [address]
--- NOTE | 2018-08-22 08:55 | OP ---
PATIENT NAME: TORI MATTSON MEDICAL RECORD: [id number] :72 LOCATION:D[facility] D.2301 ADMISSION DATE:08/21/18 SURGEON: TRUONG ALICEA MD DATE OF OPERATION: 08/22/2018 PROCEDURE: Left heart catheterization, selective coronary angiography plus PORTILLO arteriography, post-intervention of the LAD through the PORTILLO as well as intervention of the PORTILLO. FINDINGS: Left ventriculography was not performed. CORONARY ANATOMY: LEFT MAIN: Left main is free of disease. LAD: Fills for a short period of time is totally occluded. CIRCUMFLEX: Circumflex free of disease. Small size of the ramus branch has an ostial stenosis. RIGHT CORONARY ARTERY: Rudimentary, free of disease. PORTILLO to LAD shows a totally occluded LAD at the area of the previously placed stent. DESCRIPTION OF PROCEDURE: After multiple guiding catheters, we attempted to engage the PORTILLO to the LAD. Unfortunately, we developed a guide catheter dissection, we were able to place a Whisper wire across the dissection into the true lumen down this portion of vessel. Next, 3.0 balloon was taken down distal portion of the LAD. Using the balloon exchange catheter, we placed a PT export wire. Next, proximally at the area of total occlusion, we placed a 3.0 x 15 mm Aurora drug-eluting stent up to 14 atmospheres to address the guide catheter dissection. We used a 3.0 x 15 mm Brian drug-eluting stent up to 16 atmospheres. Final angiography shows excellent resolution of the 100% stenosis with no significant residual. RL flow improved from 0 to 3. Nice tacking of the guide catheter dissection. Sheath was closed with ExoSeal device. There is some question if the patient was taking the Brilinta daily or b.i.d. as directed. This may explain the stent thrombosis on Brilinta. TRANSINT:[id number] Voice Confirmation ID: [id number] DOCUMENT ID: [id number] TRUONG ALICEA MD at 0855 CC: [id number] DICTATION DATE: 08/22/18 0005 LIFE SCIENCES INSTRUCTOR: 08/22/18 0141 ADM IN [place] [address] [place] [address]
== END 2018-08-22 09:33 | disposition home or self-care (01) ==
LOC: D.ER 22:13 → OBSVTIME 22:40 → D.EDHOLD 22:40 → D.ICU 08-22 00:02
PROVIDERS: Emergency Medicine; ADMIT Internal Medicine Interventional Cardiology
DX: I25.110 Atherosclerotic heart disease of native coronary artery with unstable angina pectoris (principal); I10 Essential (primary) hypertension; E78.5 Hyperlipidemia, unspecified; Z01.812 Encounter for preprocedural laboratory examination

== ENCOUNTER 2018-09-08 18:56 | Inpatient (IN) | payer MEDICARE ==
[2018-09-08] VITALS (15 sets, daily range): BP systolic 93–147; BP diastolic 60–98; BMI 29.7
[~2018-09-08] VITALS: Ht 185.4 cm; Wt 104.5 kg
[2018-09-08] MEDS ORDERED: MINIPRESS1 MG (19:21)
[2018-09-08] MEDS ORDERED: ZIAC 10-6.25 MG1 TAB PO (19:22)
[2018-09-08] MEDS ORDERED: SEROQUEL400 MG PO (19:24)
[2018-09-08] MEDS ORDERED: RESTORIL15 MG PO (19:24)
[2018-09-08 19:28] LABS: APPEARANCE CLEAR (CLEAR); COLOR DK YELLOW (YELLOW); SPECIFIC GRAVITY 1.025 (1.005-1.020)
[2018-09-08 19:29] LABS: BILIRUBIN NEGATIVE (NEGATIVE); GLUCOSE NEGATIVE (NEGATIVE); KETONE NEGATIVE (NEGATIVE); NITRITE NEGATIVE (NEGATIVE); PROTEIN 1+ mg/dL (NEGATIVE); UROBILINOGEN NORMAL (NORMAL)
[2018-09-08 19:29] LABS: BASOPHILS 0.4 % (0-2); EOSINOPHILS 4.8 % (0-7); HEMATOCRIT 35.4 % (42.0-54.0); HEMOGLOBIN 11.9 g/dL (13.5-17.5); IMMATURE GRANULOCYTES 0.3 % (0-5); LYMPHOCYTES 29.5 % (15-50); MCHC 33.6 g/dL (31.0-37.0); MCV 101.1 fL (80.0-100.0); MEAN PLATELET VOLUME 9.1 fL (7.4-10.4); MONOCYTES 10.7 % (2-11); NEUTROPHILS 54.3 % (40-80); PLATELET COUNT 198 10x3/uL (130-400); RDW 13.4 % (11.5-14.5); WBC 7.4 10x3/uL (4.8-10.8)
[2018-09-08 19:30] LABS: BACTERIA FEW /hpf (NONE SEEN); EPITHELIAL CELLS 0-5 /hpf (0-5); MUCUS <1+ /lpf (NONE SEEN); RED CELLS - URINE RARE /hpf (0-5)
--- NOTE | 2018-09-08 19:32 | NUR ---
PT INTUBATED BY EDP, RN, RT AT BEDSIDE. SUCC 100MG AND ETOMIDATE 20MG ADMINISTERED PRIOR TO INTUBATION. 7.5 ETT, 24 AT THE TEETH
[2018-09-08 19:43] LABS: ALBUMIN 3.2 g/dL (3.4-5.0); ALKALINE PHOSPHATASE 70 U/L (46-116); ALT (SGPT) 57 U/L (10-68); BILIRUBIN - TOTAL 0.54 mg/dL (0.2-1.3); CALC OSMOLALITY 276 mosm/kg (275-300); CALCIUM 7.5 mg/dL (8.5-10.1); CARBON DIOXIDE 26.7 mmol/L (21.0-32.0); CHLORIDE - SERUM 101 mmol/L (98-107); CREATININE - SERUM 0.9 mg/dL (0.6-1.3); GLUCOSE 131 mg/dL (74-106); POTASSIUM - SERUM 3.7 mmol/L (3.5-5.1); SODIUM 136 mmol/L (136-145); UREA NITROGEN 20 mg/dL (7-18); eGFR NON AFRICAN AMERICAN > 90 mL/min (90-120)
[2018-09-08 19:47] LABS: UDS - AMPHET POSITIVE QUAL (NEGATIVE); UDS - BARB POSITIVE QUAL (NEGATIVE); UDS - BENZO POSITIVE QUAL (NEGATIVE); UDS - COCAINE NEGATIVE QUAL (NEGATIVE); UDS - OPIATE NEGATIVE QUAL (NEGATIVE); UDS - PCP NEGATIVE QUAL (NEGATIVE); UDS - THC POSITIVE QUAL (NEGATIVE)
[2018-09-08 19:58] LABS: CKMB 5.4 U/L (0.0-3.6); MAGNESIUM - SERUM 2.1 mg/dL (1.8-2.4); PRO BNP 458 pg/mL (0-125)
[2018-09-08 20:03] LABS: CREATINE KINASE 1452 UL (21-232); TROPONIN-I < 0.017 ng/mL (0.000-0.060); VALPROIC ACID (DEPAKOTE) 0.2 ug/mL (50.0-100.0)
--- NOTE | 2018-09-08 20:09 | NUR ---
PROPOFOL INFUSION STARTED AT 5MCG
--- NOTE | 2018-09-08 20:40 | NUR ---
PT FAMILY INFORMED OF PLAN OF CARE. PT APPEARS TO BE RESTING COMFORTABLY. VS WNL. VENT IN PLACE.
--- NOTE | 2018-09-08 21:01 | NUR ---
BOLUS STOPPED PER EDP INSTRUCTION, NS ADMINISTERED AT 125ML/HR
--- NOTE | 2018-09-08 21:55 | NUR ---
PT ADMITTED TO ROOM 2308 WITH DX OF OD AND ALTERERED LOC. PT RECEIVED FROM ER VIA BED ACCOMPANIED BY STAFF. PT CURRENTLY ON MECHANICAL VENTILATION WITH DIPROVAN FOR SEDATION AT 5CMG/KG/MIN. PT AROUSING AND BECOMING AGGITATED WILL TITRATE FOR ADEQUATE SEDATION. PT CONNECTED TO STANDARD ICU MONITORS WITH ALL ALARMS SET, VEIFIED AND AUDIBLE AT NURSES STATION. VAP PROTOCOL FOLLOWED PER STANDARD. BROUGHT TO BEDSIDE FOR ADMISION HISTORY. PT DOES HAVE HISTORY NOTEABLE FOR SEIZURES AND PER HAD 6 SEIZURES IN PAST 24HOUR PERIOD. STATES PT RELATES HE SEES DEMONS WHILE SEIZING. CARDIAC HISTORY OF 15 STENTS PER WITH LAST ONE 2 WEEKS AGO AND THEN DUE TO NONCOMPLIANCE WITH MEDICATIONS OCCLUDED AND WAS RESTENTED 2 DAYS LATER. RELATES PT HAS AN EXTENSIVE HISTORY A "HEAVY ALCOHOLIC AND DRUG USER OF METH" STATES PT HAS NOT DRANK IN OVER A YEAR AND THE ONLY DRUGS HE TAKE IS THC. LAB VALUES INDICATE OTHERWISE. QUESTIONS ANSWERED AND INFORMATION GIVEN. SECURITY WORD ESTABLISHED. PT SEDATED AND INTUBATED AND UNABLE TO ESTABLISH OWN CODE WORD AT THIS TIME.
--- NOTE | 2018-09-08 22:30 | NUR ---
DR. CRAFT HERE TO SEE PT. DID VISIT WITH AND OFFERED POC ANSWERED HER QUESTIONS. NEW ORDERS RECEIVED TO PLACE OGT AND ADMINISTER MEDS PER TUBE.
--- NOTE | 2018-09-08 23:00 | NUR ---
OGT PLACED AND VERIFIED WITH RETURN OF GASTRIC CONTENTS AND AUSCULTATION OF AIR BOLUS. CONNECTED TO LIS AND LINEN WORKER NOTIFIED OF NEEDS FOR MEDS. IS NOW GONE WITH CONTACT INFORMATION OBTAINED. PT IS TOLERATING THE VENT WELL
[2018-09-09] VITALS (25 sets, daily range): BP systolic 96–127; BP diastolic 62–91; Ht 185.4 cm; Wt 104.5 kg
[2018-09-09 03:56] LABS: BASOPHILS 0.7 % (0-2); EOSINOPHILS 8.5 % (0-7); HEMATOCRIT 33.4 % (42.0-54.0); HEMOGLOBIN 11.1 g/dL (13.5-17.5); IMMATURE GRANULOCYTES 0.2 % (0-5); LYMPHOCYTES 34.7 % (15-50); MCH 33.8 pg (26.0-34.0); MCHC 33.2 g/dL (31.0-37.0); MCV 101.8 fL (80.0-100.0); MONOCYTES 10.3 % (2-11); NEUTROPHILS 45.6 % (40-80); PLATELET COUNT 173 10x3/uL (130-400); RBC 3.28 10x6/uL (4.20-6.10); RDW 13.4 % (11.5-14.5); WBC 5.9 10x3/uL (4.8-10.8)
[2018-09-09 04:09] LABS: % SATURATION 53 % (15-55); IRON 126 ug/dl (35-150); TOTAL IRON BIND CAPACITY 235 ug/dl (260-445); UNSAT IRON BIND CAPACITY 109 ug/dl (150-375)
[2018-09-09 04:30] LABS: ALBUMIN 2.9 g/dL (3.4-5.0); ALKALINE PHOSPHATASE 65 U/L (46-116); ALT (SGPT) 54 U/L (10-68); BILIRUBIN - TOTAL 0.46 mg/dL (0.2-1.3); CALC OSMOLALITY 276 mosm/kg (275-300); CALCIUM 7.3 mg/dL (8.5-10.1); CARBON DIOXIDE 25.4 mmol/L (21.0-32.0); CHLORIDE - SERUM 104 mmol/L (98-107); CREATININE - SERUM 0.7 mg/dL (0.6-1.3); FERRITIN 208 ng/mL (3-244); GLUCOSE 100 mg/dL (74-106); POTASSIUM - SERUM 3.9 mmol/L (3.5-5.1); PROTEIN - SERUM 6.3 g/dL (6.4-8.2); SODIUM 138 mmol/L (136-145); UREA NITROGEN 14 mg/dL (7-18); eGFR NON AFRICAN AMERICAN > 90 mL/min (90-120)
--- NOTE | 2018-09-09 04:51 | NUR ---
LABS REVEIWED NO ACTION AT THIS TIME
--- NOTE | 2018-09-09 06:00 | NUR ---
NO VISITORS AT THIS TIME. VSS
--- NOTE | 2018-09-09 07:02 | NUR ---
NEW TUBING WITH MARVIN ÁLVAREZ
--- NOTE | 2018-09-09 07:30 | NUR ---
SHIFT REPORT RECEIVED. INTUBATED AND SEDATED. ETT 7.5, 24 AT LIP LINE RIGHT. A/C, TV 550, R-16, FIO2 40%, PEEP 5. VSS. NO FEVER NOTED. HAS LEFT WRIST PIV WITH NS AT 125ML/HR AND PROPOFOL AT 20MCG/KG/MIN. LUNGS CLEAR, BS ACTIVE X 4Q. NO SKIN ISSUES NOTED. SHIFT ASSESSMENT COMPLETED. SAFETY MEASURES IN PLACE. WILL CONTINUE TO MONITOR.
--- NOTE | 2018-09-09 08:30 | NUR ---
PROPOFOL DECREASED TO 10MCG/KG/MIN AT THIS TIME.
--- NOTE | 2018-09-09 08:45 | NUR ---
PT STILL NOT WAKING UP. PROPOFOL TURNED OFF AT THIS TIME. WAITING ON PT TO WAKE UP TO PLACE ON CPAP TRIAL.
--- NOTE | 2018-09-09 10:22 | NUR ---
PT STARTING TO SQUEEZE HANDS. NOT OPENING EYES VERY WELL YET. MOVES ARMS AND LEGS. SPOUSE AT BEDSIDE. WILL CONTINUE TO MONITOR.
--- NOTE | 2018-09-09 11:00 | NUR ---
RE-ASSESSMENT COMPLETED. PROPOFOL OFF. ON CPAP TRIAL. MOVES ARMS AND LEGS TO VOICE. LETHARGIC. VSS. NO FEVER. WILL CONTINUE TO MONITOR.
--- NOTE | 2018-09-09 13:00 | NUR ---
PT CONTINUES ON CPAP TRIAL. PT BREATHING WELL ON CPAP. NOT WAKING UP. MOVES ARMS AND LEGS WHEN SPOKEN TO. DOES NOT FOLLOW COMMANDS. WILL CONTINUE TO MONITOR.
--- NOTE | 2018-09-09 15:13 | NUR ---
RECEIVED CALL FROM POISON CONTROL (DANNY). UPDATED ON PT STATUS. WILL CALL BACK TOMORROW TO CHECK ON PT AGAIN. DR. CRAFT ORDER PULMONOLOGY CONSULT. DR. RAY NOTIFIED. DR. CRAFT WAS PT TO REMAIN OF SEDATION.
--- NOTE | 2018-09-09 15:56 | NUR ---
CALLED RECEIVED FROM CECILIA PT'S SIGNIFICANT OTHER. SHE WILL BE BY TO SEE PT AT THE 8-10 VISITATION TIME. PT OPENED EYES AND SQUEEZED HANDS. STILL LETHARGIC. WILL CONTINUE TO MONITOR.
--- NOTE | 2018-09-09 17:21 | NUR ---
PT OPENING EYES. NO SEDATION AT THIS TIME. STILL REMAINS VERY LETHARGIC. ON SIMV, R -16, TV550, PS 10 FIO2 40%, PEEP 5. VSS. WILL CONTINUE TO MONITOR.
--- NOTE | 2018-09-09 17:46 | NUR ---
PT WAKING UP MORE. ATTEMPTING TO PULL AT LINES. POINTING AT ETT. EXPLAINED TO PT WHAT WAS GOINT ON. HAD TO START PROPOFOL AT 5MCG/KG/MIN. WILL COTNINUE TO MONITOR.
--- NOTE | 2018-09-09 18:30 | NUR ---
DR. RAY AT BEDSIDE. ORDERED TO KEEP PT ON LIGHT SEDATION DURING THE NIGHT. POSSIBLE EXTUBATION IN AM.
--- NOTE | 2018-09-09 19:00 | NUR ---
REPORT RECEIVED CARE ASSUMED INITIAL SHIFT ASSESSMENT COMPLETED SEE FLOWSHEET. PT REMAINS ON MECHANICAL VENTILATION AND ONLY VERY LIGHTLY SEDATED. MONITORED PER STANDARD ICU PROTOCOL WITH ALL ALARMS SET, VERIFIED AND AUDIBLE AT NURSES STATION. IV LINES AND IVF ARE CURRENT AT THIS TIME. DIPROVAN LINE TO BE CHANGED WITH NEXT BOTTLE WILL DOCUMENT CHANGE ON OCT. BED IN LOW POSITION AND PT IS IN DIRECT LINE OF VISION OF NURSES STATION. VAP PROTOCOL OBSERVED.
--- NOTE | 2018-09-09 19:50 | NUR ---
PT AGGITATED SITTING UP IN BED EYES WIDE OPEN AND PULLING STONGLY AGAINST RESTRAINTS MAKING GESTURES HE WANTED TO PULL OUT HIS ETT. 1:1 WITH PT TO MAINTAIN SAFETY. PT UNABLE TO BE VERBALLY CALMED. HR 108 RESP 34 INCREASED SEDATION
--- NOTE | 2018-09-09 20:15 | NUR ---
AT BEDSIDE CALLING OUT TO PT OFFERING HIM A DRINK AND PT BECOMING AGGITATED. INSTRUCTED IT WOULD BE OPTIMAL FOR PT TO REMAIN CALM AND THAT SEDATION HAD BEEN TURNED UP DUE TO PRIOR AGGITATED STATE. ENCOURAGED TO NOT ATTEMPT TO AROUSE AND INTERACT WITH HIM AT THIS TIME. VERBALIZED COMPREHENSION.
--- NOTE | 2018-09-09 23:00 | NUR ---
SHIFT REASSESSMENT COMPLETED NO SIGNIFICANT CHANGES
[2018-09-10] VITALS (24 sets, daily range): BP systolic 94–133; BP diastolic 47–87
--- NOTE | 2018-09-10 01:00 | NUR ---
PT RESTING WELL
--- NOTE | 2018-09-10 03:00 | NUR ---
NO SIGNIFICANT CHANGES. PT REMAINS TOTAL CARE FOR ALL ADLS WITH PILLOWS USED TO PROVIDE SUPPORT, RELIEVE PRESSURE ELEVATE ARMS AND FLOAT HEELS.
[2018-09-10 04:03] LABS: BASOPHILS 0.3 % (0-2); EOSINOPHILS 8.1 % (0-7); HEMATOCRIT 34.8 % (42.0-54.0); HEMOGLOBIN 11.4 g/dL (13.5-17.5); IMMATURE GRANULOCYTES 0.3 % (0-5); LYMPHOCYTES 21.1 % (15-50); MCH 33.7 pg (26.0-34.0); MCHC 32.8 g/dL (31.0-37.0); MEAN PLATELET VOLUME 9.6 fL (7.4-10.4); MONOCYTES 8.6 % (2-11); NEUTROPHILS 61.6 % (40-80); PLATELET COUNT 183 10x3/uL (130-400); RBC 3.38 10x6/uL (4.20-6.10); RDW 13.5 % (11.5-14.5)
[2018-09-10 04:08] LABS: WBC 7.8 10x3/uL (4.8-10.8)
[2018-09-10 04:42] LABS: ALBUMIN 2.7 g/dL (3.4-5.0); ALKALINE PHOSPHATASE 69 U/L (46-116); ALT (SGPT) 50 U/L (10-68); BILIRUBIN - TOTAL 0.36 mg/dL (0.2-1.3); CALCIUM 7.4 mg/dL (8.5-10.1); CARBON DIOXIDE 25.7 mmol/L (21.0-32.0); CHLORIDE - SERUM 106 mmol/L (98-107); CREATININE - SERUM 0.7 mg/dL (0.6-1.3); GLUCOSE 94 mg/dL (74-106); POTASSIUM - SERUM 3.8 mmol/L (3.5-5.1); PROTEIN - SERUM 6.4 g/dL (6.4-8.2); SODIUM 140 mmol/L (136-145); eGFR NON AFRICAN AMERICAN > 90 mL/min (90-120)
[2018-09-10 04:43] LABS: CALC OSMOLALITY 276 mosm/kg (275-300); CKMB 1.1 U/L (0.0-3.6); CREATINE KINASE 388 UL (21-232); UREA NITROGEN 6 mg/dL (7-18)
--- NOTE | 2018-09-10 05:13 | NUR ---
LABS REVIEWED NO ACTION NEEDED AT THIS TIME
[2018-09-10 07:28] LABS: FOLATE (FOLIC ACID) - SERUM 5.3 ng/mL (>3.0)
--- NOTE | 2018-09-10 07:34 | NUR ---
LYING IN BED ON VENT AT THIS TIME. SEDATION OFF FOR CPAP TRAIL TO BE PERFORMED. PT FOLLOWS COMMANDS. NO ACUTE DISTRESS NOTED. WILL CONTINUE PLAN OF CARE.
--- NOTE | 2018-09-10 09:06 | NUR ---
AWAKEN ON VENT AT THIS TIME. NO ACUTE DISTRESS NOTED. FAMILY AT BEDSIDE. WILL CONTINUE PLAN OF CARE.
--- NOTE | 2018-09-10 11:25 | NUR ---
EXTUBATED. LYING IN BED AWAKE AT THIS TIME. NO ACUTE DISTRESS NOTED. PT ON 4L OXYGEN VIA NC. WILL CONTINUE PLAN OF CARE.
--- NOTE | 2018-09-10 13:01 | NUR ---
TOLERATES ICE CHIPS AND THIN LIQUIDS WELL. PER OIL SEAL ASSEMBLER ADVANCE DIET TOLERATED FOR CARDIAC DIET. NO ACUTE DISTRESS NOTED. FAMILY AT BEDSIDE. WILL CONTINUE PLAN OF CARE.
--- NOTE | 2018-09-10 14:22 | NUR ---
PT COMPLAINT OF DISCOMFORT TO BACK AT THIS TIME. PT HAS CRONIC BACK PAIN. DR CRAFT NOTIFIED. ORDERS RECIEVED FOR IUBPROFEIN 400MG PO FOR PAIN Q4H PRN. AND TYLENOL 650MG PO Q4H PRN FOR PAIN. WILL PLACE ORDERS. NO ACUTE DISTRESS NOTED. WILL CONTINUE PLAN OF CARE.
--- NOTE | 2018-09-10 15:09 | NUR ---
UP IN BED AT THIS TIME EATING SNACK. TOLERATES FOOD WELL. NO ACUTE DISTRESS NOTED. WILL CONTINUE PLAN OF CARE.
--- NOTE | 2018-09-10 17:06 | NUR ---
LYING IN BED AWAKE AT THIS TIME. NO ACUTE DISTRESS NOTED. PT TOLERATES MEAL WELL, NO S/S ASPIRATION. AT BEDSIDE. WILL CONTINUE PLAN OF CARE.
--- NOTE | 2018-09-10 18:26 | MORECARE ---
CASE MANAGEMENT DISCHARGE SUMMARY PATIENT: TORI YAÑEZ UNIT: [id number] ADM DATE: 09/08/18 AGE: 48 : 72 SEX: M ROOM/BED: D.2308 AUTHOR: JIL DAWSON PHYSICIAN: REFERRING PHYSICIAN: USHA CRAFT MD DATE OF SERVICE: 09/10/18 Discharge Plan Patient Name: TORI YAÑEZ [facility] [facility] 1970 Planned Disposition: Home Anticipated Discharge Date: Discharge Date: Expected LOS: Initial Reviewer: [email or web address] Initial Review Date: 09/08/2018 Generated: 09/10/18 7:26 pm DCPIA - Discharge Planning Initial Assessment Updated by [email or web address]: Dominique North on 09/10/18 6:21 pm * Is the patient Alert and Oriented? Yes * How many steps to enter\exit or inside your home? * PCP Johan * Pharmacy [facility] - [address] [facility] * Preadmission Environment Home with Family * ADLs Independent * Equipment None * List name and contact numbers for known caregivers / representatives who currently or will assist patient after discharge: Syl Yañez - spouse- [phone] * Verbal permission to speak to the caregivers and representatives has been obtained from the patient. Yes * Community resources currently utilized None * Additional services required to return to the preadmission environment? No * Can the patient safely return to the preadmission environment? Yes * Has this patient been hospitalized within the prior 30 days at any hospital? Yes Patient Name: TORI YAÑEZ Page 11041 at 1826 All edits/amendments must be made on the electronic document DICTATION DATE: 09/10/181825 GAS FLOW REGULATOR: JON 09/10/181825 RPT#: [id number] DC DATE: STATUS: ADM IN [facility] [address] [place] [address] END OF REPORT
--- NOTE | 2018-09-10 18:34 | MORECARE ---
CASE MANAGEMENT DISCHARGE SUMMARY PATIENT: TORI YAÑEZ UNIT: [id number] ADM DATE: 09/08/18 AGE: 48 : 72 SEX: M ROOM/BED: D.2308 AUTHOR: EUNICE,DOC PHYSICIAN: REFERRING PHYSICIAN: USHA CRAFT MD DATE OF SERVICE: 09/10/18 Discharge Plan Patient Name: TORI YAÑEZ Facility: [facility]:[place] : 1970 Planned Disposition: Home Anticipated Discharge Date: Discharge Date: Expected LOS: Initial Reviewer: [email or web address] Initial Review Date: 09/08/2018 Generated: 09/10/18 7:34 pm Comments DCP- Discharge Planning Updated by [id number]: Dominique North on 09/10/18 5:[address] Patient Name: TORI YAÑEZ Admission Status: ER Accout number: [id number] Admission Date: 09-08-2018 : 1970 Admission Diagnosis: Attending: USHA CRAFT Current LOS: 2 Anticipated DC Date: Planned Disposition: Home Primary Insurance: MEDICARE A & B Discharge Planning Comments: CM met with patient and spouse at bedside. Patient states he plans on returning to his home with his after discharge. Patient denies any medical equipment in the home or home health services prior to admission. Patient denies any discharge needs. CM will continue to follow and assist as needed with discharge planning / needs. Bee Farmer: Dominique North DCPIA - Discharge Planning Initial Assessment Updated by [email or web address]: Dominique North on 09/10/18 6:21 pm * Is the patient Alert and Oriented? Yes * How many steps to enter\exit or inside your home? * PCP Johan * Pharmacy [facility] - [address] * Preadmission Environment Home with Family * ADLs Independent * Equipment None * List name and contact numbers for known caregivers / representatives who currently or will assist patient after discharge: Syl Yañez - spouse- [phone] * Verbal permission to speak to the caregivers and representatives has been obtained from the patient. Yes * Community resources currently utilized None * Additional services required to return to the preadmission environment? No * Can the patient safely return to the preadmission environment? Yes * Has this patient been hospitalized within the prior 30 days at any hospital? Yes Last DP export: 09/10/18 5:26 p Patient Name: TORI YAÑEZ Page [phone] at 1834 All edits/amendments must be made on the electronic document DICTATION DATE: 09/10/181832 INDUSTRIAL RELATIONS COUNSELOR: JON 09/10/181832 RPT#: [id number] DC DATE: STATUS: ADM IN [facility] [address] [place] [address] END OF REPORT
--- NOTE | 2018-09-10 19:00 | NUR ---
REPORT RECEIVED CARE ASSUMED INITIAL SHIFT ASSESSMENT COMPLETED SEE FLOWSHEET. PT AAOX4 SPEECH CLEAR BUT SOFT. DENIES NEEDS. DINNER TRAY AT BEDSIDE, PT FINISHING UP FOOD BROUGHT IN BY . NO SWALLOWING DIFFICULTY NOTED. CONTINUE TO MONITOR PER STANDARD ICU PROTOCOL WITH ALL ALARMS SET, VERIFIED AND AUDIBLE AT NURSES STATION. CALL LIGHT IN REACH AND PT ABLE TO MAKE NEEDS KNOWN BED IN LOW POSTITION. PT IS CURRENTLY ON 4LN/C AND F/C IS PATENT DRAINING CLEAR CODY URINE. NO ACUTE DISTRESS NOTED.
--- NOTE | 2018-09-10 20:00 | NUR ---
PT HAS BEEN OFF OF SEDATION FOR 9 HOURS AND IS FULLY AWAKE. FEEDING SELF AND ABLE TO ATTEND TO PERSONAL NEEDS. PT TEACHING DONE AND EXPLAINATIONS GIVEN. F/C D/C'D WITHOUT DIFFICULTY PER PROTOCOL. URINAL LEFT AT BEDSIDE AND PT VERBALIZED ABILITY TO USE. CALL LIGHT IN REACH, PT EXPRESSED NO FURTHER NEEDS AT THIS TIME
--- NOTE | 2018-09-10 21:26 | NUR ---
PT VOIDED 700 CLEAR YELLOW URINE DENIED DYSURIA. URINAL REPLACED AT BEDSIDE.
--- NOTE | 2018-09-10 21:45 | NUR ---
MED GIVEN DOMENTED ON OCT. NO SWALLOWING DIFFICULTY. PT ASKING ABOUT PHENOBARBITAL. WILL HAVE ONCOMING RN ADDRESS THIS IN AM SINCE IT IS AN AM MED. PT HAS BEEN SLEEPING OFF AND ON THIS EVENING. DENIES NEEDS. CALL LIGHT LEFT IN REACH BED IN LOW POSITION
--- NOTE | 2018-09-10 22:15 | NUR ---
SPO2 REMAINS IN MID TO UPPER 90'S. O2 WEANED TO 2L N/C. WILL MONITOR FOR EFFECT.
--- NOTE | 2018-09-10 23:00 | NUR ---
SHIFT REASSESSMENT COMPLETED SEE FLOWSHEET. NO SIGNIFICANT CHANGES. PT ABLE TO DO 4000 EASILY ON INCENTIVE SPIROMETRY. DENIES NEEDS
--- NOTE | 2018-09-10 23:30 | NUR ---
PT USED CALL LIGHT TO REQUEST TO SPEAK WITH THIS NURSE. WAS TEARFUL STATING "I DONT USE DRUGS AND I DONT UNDERSTAND WHY MY DRUG TEST WAS POSITIVE" PT ALSO STATED HE HAS BEEN TAKING HIS DEPAKOTE 1000MB MORNING AND NIGHT AND HAS NOT MISSED ANY DOSES. ASSURED PT THINGS COULD BE SORTED OUT LATER BUT AT THIS TIME THERE WAS LITTLE THAT COULD BE DONE TO CHANGE HIS RESULTS. PT INDICATED HE WANTED HIS TOLD HE DIDNT DO DRUGS AND ADVISED HE COULD DISCUSS IT WITH HIS PHYSICIAN WHEN HE MADE ROUNDS. PT DENIED FURTHER NEEDS CALL LIGHT LEFT IN REACH
[2018-09-11] VITALS (18 sets, daily range): BP systolic 108–143; BP diastolic 62–686
--- NOTE | 2018-09-11 | NUR ---
PT CALM AND REQUESTED A SNACK, PROVIDED. CONTINENT OF 700CC CLEAR YELLOW URINE. NO FURTHER TEARFULLNESS AND CALL LIGHT LEFT IN REACH. PT DENIED FURTHER NEEDS
--- NOTE | 2018-09-11 02:47 | NUR ---
Call received from stating pt is "Having a psychotic thing and is talking about people calling him on a phone that has no service" Did check on pt who responds appropriately, vss and has been snacking on natalia crackers and sprite provided to him per his request. Pt has noted to be talking on the phone off amd on and napping off and on throughout the shift. Will continue to closely monitor pt.
--- NOTE | 2018-09-11 03:00 | NUR ---
SHIFT REASSESSMENT COMPLETED SEE FLOWSHEET. PT SPO2 REMAINS CONSISITENTLY HIGH AND NOTE PT HAS REMOVED O2 AND IS ON ROOM AIR. O2 DISCONTINUED AND RT NOTIFIED.
[2018-09-11 03:51] LABS: BASOPHILS 0.2 % (0-2); EOSINOPHILS 10.1 % (0-7); HEMATOCRIT 35.8 % (42.0-54.0); HEMOGLOBIN 11.7 g/dL (13.5-17.5); IMMATURE GRANULOCYTES 0.1 % (0-5); MCH 33.6 pg (26.0-34.0); MCHC 32.7 g/dL (31.0-37.0); MCV 102.9 fL (80.0-100.0); MEAN PLATELET VOLUME 9.5 fL (7.4-10.4); MONOCYTES 10.5 % (2-11); NEUTROPHILS 47.1 % (40-80); PLATELET COUNT 205 10x3/uL (130-400); RBC 3.48 10x6/uL (4.20-6.10); RDW 13.6 % (11.5-14.5); WBC 8.1 10x3/uL (4.8-10.8)
--- NOTE | 2018-09-11 04:00 | NUR ---
PT SLEEPING SOUNDLY. RESP REG AND NONLABORED.
[2018-09-11 04:14] LABS: ALBUMIN 2.6 g/dL (3.4-5.0); ALKALINE PHOSPHATASE 63 U/L (46-116); ALT (SGPT) 42 U/L (10-68); BILIRUBIN - TOTAL 0.24 mg/dL (0.2-1.3); CALCIUM 7.4 mg/dL (8.5-10.1); CARBON DIOXIDE 25.2 mmol/L (21.0-32.0); CHLORIDE - SERUM 107 mmol/L (98-107); CREATININE - SERUM 0.8 mg/dL (0.6-1.3); GLUCOSE 128 mg/dL (74-106); MAGNESIUM - SERUM 2.1 mg/dL (1.8-2.4); PHOSPHOROUS 2.2 mg/dL (2.5-4.9); PROTEIN - SERUM 6.2 g/dL (6.4-8.2); SODIUM 142 mmol/L (136-145); eGFR NON AFRICAN AMERICAN > 90 mL/min (90-120)
[2018-09-11 04:20] LABS: CALC OSMOLALITY 281 mosm/kg (275-300); POTASSIUM - SERUM 3.1 mmol/L (3.5-5.1); UREA NITROGEN 4 mg/dL (7-18)
--- NOTE | 2018-09-11 05:36 | NUR ---
LABS REVIEWED ELECTROLYTE PROTOCOL FOLLOWED PER DOCUMENTATION ON MAR
--- NOTE | 2018-09-11 06:03 | NUR ---
PT AAOX4 CHEERFUL AND PLEASANT. NO NEEDS VOICED
--- NOTE | 2018-09-11 13:44 | NUR ---
0700 RESTLESS IN BED TALKED WITH PATIENT TO CALM HIM DOWN DOSED OFF TO SLEEP
--- NOTE | 2018-09-11 13:45 | NUR ---
0900 AT BEDSIDE EMOTIONAL SUPPORT PROVIDED
--- NOTE | 2018-09-11 14:05 | NUR ---
1100 VITAL SIGNS STABLE RESTING QUIETLY
--- NOTE | 2018-09-11 14:07 | NUR ---
1300 APPETITE GOOD FAMILY AT BEDSIDE TO TAKE CELL PHONE HOME WAITING ON PSYC EVAL
--- NOTE | 2018-09-11 15:31 | NUR ---
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
--- NOTE | 2018-09-11 17:18 | NUR ---
1700 INSTRUCTIONS PROVIDED TO ON DONING PROTECTIVE EQUIPMENT FOR DROPLET PRECAUTIONS, VERBALIZED UNDERSTANDING. AT BEDSIDE BATHING PATIENT.
--- NOTE | 2018-09-11 19:00 | NUR ---
REPORT RECEIVED CARE ASSUMED. INITIAL SHIFT ASSESSMENT COMPLETED. PT AAOX4 CHEERFUL AND WITH NO COMPLAINTS. PT IS IN DROPLET ISOLATION WITH ALL PRECAUTIONS BEING OBSERVED. MONITORED PER STANDARD ICU PROTOCOL AND PT AWARE OF TRANFER ORDERS WITH TRANSFER ON HOLD NOW AWAITING BED ASSIGNMENT. IV LINES AND IVF ARE CURRENT, APPROPRIATELY LABELED AND NOT DUE TO BE CHANGED AT THIS TIME. BED IN LOW POSITION CALL LIGHT IN REACH PT ABLE TO USE CALL LIGHT SYSTEM TO REQUEST ASSISTANCE.
--- NOTE | 2018-09-11 19:15 | NUR ---
RATE OF IV ADJUSTED TO 50ML/HR PER ORDER
--- NOTE | 2018-09-11 21:00 | NUR ---
MEDS GIVEN DOCUMENTED ON OCT. NO SWALLOWING DIFFICULTIES NOTED. LYING BESIDE PT AND PT AGREABLE AND PLEASANT. NO COMPLAINTS OFFERED DENIES NEEDS
--- NOTE | 2018-09-11 22:47 | NUR ---
MEDS GIVEN DOCUMENTED ON MAR. LINES DUE TO BE CHANGED. NEW IV LINES AND NEW IVF HUNG LABELED APPROPRIATE
--- NOTE | 2018-09-11 23:25 | NUR ---
PT C/O NAUSEA WITH SOME DRY HEAVING NOTED. C/O ITCHING NO RASH PRESENT. PT HAVING NO TROUBLE BREATHING. PT STATES HE HAS HAD THE ITCHING WHEN HE HAS TAKEN VANCOMYCIN BEFORE BUT NEVER N/V. PT HAVING NO DIFFICULTY BREATHING. VANCOMYCIN INFUSION STOPPED AND NS RESUMED. CALL PLACED TO DR. RAY TO NOTIFY OF PT'S CONDITION. NEW ORDERS RECEIVED REPEATED AND VERIFIED. MEDS GIVEN DOCUMENTED ON OCT. LOTUS NOTES ADMINISTRATOR NOTIFIED OF ORDER AND NEED FOR MEDICATION. PT NOTIFIED OF TREATMENT ORDERED. CHART UPDATED TO REFLECT ADVERSE REACTION TO VANC AND ALSO TO NOW REPORTED MORPHINE.
--- NOTE | 2018-09-12 00:02 | NUR ---
PT WITH NO FURTHER N/V AND DENIES ITCHING. WILL CONTINUE TO MONITOR
--- NOTE | 2018-09-12 01:00 | NUR ---
PT SLEEPING RESP REG AND NONLABORED
[2018-09-12 03:00] VITALS: BP 128/54
--- NOTE | 2018-09-12 03:00 | NUR ---
PT AWAKE STANDING AT BEDSIDE VOIDING. TREATED FOR HYPOKALEMIA PER ELECTROLYTE PROTCOL. NO SWALLOWING DIFFICULTY. PT VERBALIZED UNDERSTANDING OF TEACHING PRESENTED REGARDING MEDICATIONS AND SAFETY.
--- NOTE | 2018-09-12 05:00 | NUR ---
PT ASLEEP. RESP REG AND NONLABORED. EYES CLOSED. VSS
[2018-09-12 07:00] VITALS: BP 144/86
--- NOTE | 2018-09-12 07:00 | NUR ---
PATIENT RESTING IN BED AWAKE AND ALERT AND ORIENTED. VSS. ON ROOM AIR. WILL CONTINUE TO MONITOR
[2018-09-12 07:13] LABS: BASOPHILS 0.6 % (0-2); EOSINOPHILS 13.9 % (0-7); HEMATOCRIT 35.7 % (42.0-54.0); HEMOGLOBIN 11.9 g/dL (13.5-17.5); IMMATURE GRANULOCYTES 0.3 % (0-5); LYMPHOCYTES 27.5 % (15-50); MCHC 33.3 g/dL (31.0-37.0); MEAN PLATELET VOLUME 9.2 fL (7.4-10.4); MONOCYTES 10.3 % (2-11); NEUTROPHILS 47.4 % (40-80); PLATELET COUNT 204 10x3/uL (130-400); WBC 6.7 10x3/uL (4.8-10.8)
[2018-09-12 07:26] LABS: ALBUMIN 2.6 g/dL (3.4-5.0); ALKALINE PHOSPHATASE 62 U/L (46-116); ALT (SGPT) 38 U/L (10-68); BILIRUBIN - TOTAL 0.17 mg/dL (0.2-1.3); CALC OSMOLALITY 277 mosm/kg (275-300); CALCIUM 7.6 mg/dL (8.5-10.1); CARBON DIOXIDE 26.5 mmol/L (21.0-32.0); CHLORIDE - SERUM 105 mmol/L (98-107); CREATININE - SERUM 0.8 mg/dL (0.6-1.3); GLUCOSE 156 mg/dL (74-106); MAGNESIUM - SERUM 1.9 mg/dL (1.8-2.4); PHOSPHOROUS 2.1 mg/dL (2.5-4.9); POTASSIUM - SERUM 3.6 mmol/L (3.5-5.1); PROTEIN - SERUM 6.4 g/dL (6.4-8.2); SODIUM 139 mmol/L (136-145); UREA NITROGEN 3 mg/dL (7-18); eGFR NON AFRICAN AMERICAN > 90 mL/min (90-120)
[2018-09-12 09:00] VITALS: BP 135/87
--- NOTE | 2018-09-12 09:30 | NUR ---
PATIENT RESTING IN BED C GIRL FRIEND IN ROOM. VSS. AWAKE AND ALERT. NS INFUSING AT 50ML/HR. ROOM AIR. RECEIVED NOTICE THAT OKAY TO TAKE PATIENT OFF DROPLET ISOLATION PRECAUTIONS.
--- NOTE | 2018-09-12 09:35 | NUR ---
Nutrition follow-up: Pt extubated 09/10/18 Diet has advanced to low sodium with pts po intake 100% of some meals Pt has had some N/V due to medications. 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 RDN following.
--- NOTE | 2018-09-12 09:47 | NUR ---
CALLED PHARMACY FOR SECOND TIME ABOUT VIBRAMYCIN PILL ORDERED FOR 0900.
--- NOTE | 2018-09-12 10:00 | NUR ---
REMOVED ISOLATION PRECAUTIONS PER LAB.
[2018-09-12 11:00] VITALS: BP 146/107
[2018-09-12] MEDS ORDERED: VIBRAMYCIN 100100 MG PO (12:24)
--- NOTE | 2018-09-12 12:24 | NUR ---
PATIENT RESTING IN BED STABLE. RESPIRATINS NORMAL. AAWAKE ALERT, AND ORIENTED X 4. WILL CONTINUE TO MONITOR
--- NOTE | 2018-09-12 14:10 | NUR ---
PATIENT TAKEN TO VEHICLE VIA WHEEL CHAIR WITH ALL BELONGINGS AND DICHARGE INSTRUCTIONS. DISCHARGE INSTRUCTIONS GIVEN AND IV'S DC'D.
--- NOTE | 2018-09-12 17:20 | MORECARE ---
CASE MANAGEMENT DISCHARGE SUMMARY PATIENT: TORI YAÑEZ UNIT: [id number] ADM DATE: 09/08/18 AGE: 48 : 72 SEX: M ROOM/BED: D.2308 AUTHOR: EUNICE,DOC PHYSICIAN: REFERRING PHYSICIAN: USHA CRAFT MD DATE OF SERVICE: 09/12/18 Discharge Plan Patient Name: TORI YAÑEZ Facility: [facility]:[place] : 1970 Planned Disposition: Home Anticipated Discharge Date: Discharge Date: 09/12/2018 Expected LOS: Initial Reviewer: [email or web address] Initial Review Date: 09/08/2018 Generated: 09/12/18 6:20 pm Comments DCP- Discharge Planning Updated by [id number]: Dominique North on 09/10/18 5:[address] Patient Name: TORI YAÑEZ Admission Status: ER Accout number: [id number] Admission Date: 09-08-2018 : 1970 Admission Diagnosis: Attending: USHA CRAFT Current LOS: 2 Anticipated DC Date: Planned Disposition: Home Primary Insurance: MEDICARE A & B Discharge Planning Comments: CM met with patient and spouse at bedside. Patient states he plans on returning to his home with his after discharge. Patient denies any medical equipment in the home or home health services prior to admission. Patient denies any discharge needs. CM will continue to follow and assist as needed with discharge planning / needs. Marketing Teacher: Dominique North DCPIA - Discharge Planning Initial Assessment Updated by [email or web address]: Dominique North on 09/10/18 6:21 pm * Is the patient Alert and Oriented? Yes * How many steps to enter\exit or inside your home? * PCP Johan * Pharmacy [facility] - [address] * Preadmission Environment Home with Family * ADLs Independent * Equipment None * List name and contact numbers for known caregivers / representatives who currently or will assist patient after discharge: Syl Yañez - spouse- [phone] * Verbal permission to speak to the caregivers and representatives has been obtained from the patient. Yes * Community resources currently utilized None * Additional services required to return to the preadmission environment? No * Can the patient safely return to the preadmission environment? Yes * Has this patient been hospitalized within the prior 30 days at any hospital? Yes Last DP export: 09/10/18 5:34 p Patient Name: TORI YAÑEZ Page [phone] at 1720 All edits/amendments must be made on the electronic document DICTATION DATE: 09/12/181719 PATIENT RESOURCE COORDINATOR: JON 09/12/181719 RPT#: [id number] DC DATE:09/12/18 STATUS: DIS IN [facility] [address] [place] [address] END OF REPORT
== END 2018-09-12 14:34 | disposition home or self-care (01) | DRG 917 ==
LOC: D.ER 18:56 → D.EDHOLD 21:01 → D.ICU 21:01
PROVIDERS: Emergency Medicine; ADMIT Internal Medicine Nephrology
PROC: 5A1945Z Respiratory Ventilation, 24-96 Consecutive Hours (ICD-10-PCS; principal; 2018-09-09)
PROC: 0BH17EZ Insertion of Endotracheal Airway into Trachea, Via Natural or Artificial Opening (ICD-10-PCS; 2018-09-09)
DX: T42.3X1A Poisoning by barbiturates, accidental (unintentional), initial encounter (principal); J96.02 Acute respiratory failure with hypercapnia; J96.01 Acute respiratory failure with hypoxia; J44.1 Chronic obstructive pulmonary disease with (acute) exacerbation; G93.40 Encephalopathy, unspecified; T42.4X1A Poisoning by benzodiazepines, accidental (unintentional), initial encounter; G40.909 Epilepsy, unspecified, not intractable, without status epilepticus; G47.33 Obstructive sleep apnea (adult) (pediatric); I10 Essential (primary) hypertension; E78.00 Pure hypercholesterolemia, unspecified; E87.6 Hypokalemia; D53.9 Nutritional anemia, unspecified; F31.9 Bipolar disorder, unspecified; F20.9 Schizophrenia, unspecified; Z91.19 Patient's noncompliance with other medical treatment and regimen; Z95.1 Presence of aortocoronary bypass graft

== ENCOUNTER 2018-10-13 15:53 | Emergency (ER) | payer MEDICARE ==
[~2018-10-13] VITALS: Ht 185.4 cm; Wt 106.8 kg
[~2018-10-13 15:53] MED LIST changes: +MINIPRESS1 MG; +RESTORIL15 MG PO; +SEROQUEL400 MG PO; +VIBRAMYCIN 100100 MG PO; +ZIAC 10-6.25 MG1 TAB PO
[2018-10-13 15:54] VITALS: Ht 185.4 cm; Wt 106.8 kg
[2018-10-13 16:35] LABS: BASOPHILS 0.3 % (0-2); EOSINOPHILS 4.5 % (0-7); HEMATOCRIT 38.1 % (42.0-54.0); HEMOGLOBIN 12.7 g/dL (13.5-17.5); IMMATURE GRANULOCYTES 0.3 % (0-5); LYMPHOCYTES 36.7 % (15-50); MCH 34.1 pg (26.0-34.0); MCHC 33.3 g/dL (31.0-37.0); MCV 102.4 fL (80.0-100.0); MEAN PLATELET VOLUME 9.3 fL (7.4-10.4); MONOCYTES 8.7 % (2-11); NEUTROPHILS 49.5 % (40-80); PLATELET COUNT 189 10x3/uL (130-400); RBC 3.72 10x6/uL (4.20-6.10); RDW 13.6 % (11.5-14.5); WBC 7.1 10x3/uL (4.8-10.8)
[2018-10-13 16:47] LABS: INR 1.06 (0.85-1.17); PROTIME 13.3 SECONDS (11.6-15.0)
[2018-10-13 16:53] LABS: ALBUMIN 3.3 g/dL (3.4-5.0); ALKALINE PHOSPHATASE 62 U/L (46-116); ALT (SGPT) 48 U/L (10-68); CALC OSMOLALITY 286 mosm/kg (275-300); CALCIUM 7.6 mg/dL (8.5-10.1); CARBON DIOXIDE 27.5 mmol/L (21.0-32.0); CHLORIDE - SERUM 105 mmol/L (98-107); POTASSIUM - SERUM 3.7 mmol/L (3.5-5.1); PROTEIN - SERUM 6.7 g/dL (6.4-8.2); SODIUM 143 mmol/L (136-145); UREA NITROGEN 14 mg/dL (7-18); eGFR NON AFRICAN AMERICAN 85 mL/min (90-120)
[2018-10-13 16:54] LABS: GLUCOSE 108 mg/dL (74-106)
[2018-10-13 17:03] LABS: CKMB 4.5 U/L (0.0-3.6); CREATINE KINASE 408 UL (21-232); MAGNESIUM - SERUM 2.2 mg/dL (1.8-2.4); PHENOBARBITAL 22.1 ug/mL (15.0-40.0); TROPONIN-I < 0.017 ng/mL (0.000-0.060); VALPROIC ACID (DEPAKOTE) 25.4 ug/mL (50.0-100.0)
[2018-10-13 19:09] LABS: APPEARANCE CLEAR (CLEAR); BILIRUBIN NEGATIVE (NEGATIVE); COLOR DK YELLOW (YELLOW); GLUCOSE NEGATIVE (NEGATIVE); KETONE NEGATIVE (NEGATIVE); NITRITE NEGATIVE (NEGATIVE); PROTEIN TRACE mg/dL (NEGATIVE); UDS - AMPHET POSITIVE QUAL (NEGATIVE); UDS - BARB POSITIVE QUAL (NEGATIVE); UDS - BENZO POSITIVE QUAL (NEGATIVE); UDS - COCAINE NEGATIVE QUAL (NEGATIVE); UDS - OPIATE NEGATIVE QUAL (NEGATIVE); UDS - PCP NEGATIVE QUAL (NEGATIVE); UDS - THC POSITIVE QUAL (NEGATIVE); UROBILINOGEN NORMAL (NORMAL)
[2018-10-13 19:11] LABS: BACTERIA FEW /hpf (NONE SEEN); EPITHELIAL CELLS 0-5 /hpf (0-5); RED CELLS - URINE RARE /hpf (0-5); WHITE CELLS - URINE 0-5 /hpf (0-5)
[2018-10-13] MEDS ORDERED: NORVASC5 MG PO (19:50)
[2018-10-13 20:30] VITALS: BP 115/74
== END 2018-10-13 20:30 | disposition home or self-care (01) ==
LOC: D.ER 15:53
PROVIDERS: Family Medicine
DX: R07.9 Chest pain, unspecified (principal); Z86.79 Personal history of other diseases of the circulatory system; F19.10 Other psychoactive substance abuse, uncomplicated; G40.909 Epilepsy, unspecified, not intractable, without status epilepticus

== ENCOUNTER 2018-11-15 12:06 | Emergency (ER) | payer MEDICARE ==
[~2018-11-15] VITALS: Ht 185.4 cm; Wt 104.5 kg
[2018-11-15 12:07] VITALS: Ht 185.4 cm; Wt 104.5 kg
[2018-11-15] MEDS ORDERED: NEURONTIN 300300 MG PO (12:09)
[2018-11-15] MEDS ORDERED: ASPIRIN EC81 M1 PO (12:09)
[2018-11-15] MEDS ORDERED: LATUDA80 MG PO (12:10)
[2018-11-15] MEDS ORDERED: BYSTOLIC20 MG PO (12:11)
[2018-11-15] MEDS ORDERED: PHENOBARBITAL97.2 MG PO (12:11)
[2018-11-15 13:08] LABS: BASOPHILS 0.5 % (0-2); EOSINOPHILS 7.5 % (0-7); HEMATOCRIT 43.9 % (42.0-54.0); IMMATURE GRANULOCYTES 0.3 % (0-5); LYMPHOCYTES 40.8 % (15-50); MCH 34.2 pg (26.0-34.0); MCHC 34.2 g/dL (31.0-37.0); MEAN PLATELET VOLUME 9.1 fL (7.4-10.4); MONOCYTES 10.6 % (2-11); NEUTROPHILS 40.3 % (40-80); PLATELET COUNT 167 10x3/uL (130-400); RBC 4.39 10x6/uL (4.20-6.10); RDW 13.3 % (11.5-14.5); WBC 7.4 10x3/uL (4.8-10.8)
[2018-11-15 13:39] LABS: ALBUMIN 3.9 g/dL (3.4-5.0); ALKALINE PHOSPHATASE 94 U/L (46-116); ALT (SGPT) 78 U/L (10-68); BILIRUBIN - TOTAL 0.33 mg/dL (0.2-1.3); CALC OSMOLALITY 269 mosm/kg (275-300); CALCIUM 8.8 mg/dL (8.5-10.1); CARBON DIOXIDE 25.5 mmol/L (21.0-32.0); CHLORIDE - SERUM 101 mmol/L (98-107); CREATININE - SERUM 0.8 mg/dL (0.6-1.3); GLUCOSE 75 mg/dL (74-106); POTASSIUM - SERUM 4.2 mmol/L (3.5-5.1); PROTEIN - SERUM 8.1 g/dL (6.4-8.2); SODIUM 136 mmol/L (136-145); UREA NITROGEN 11 mg/dL (7-18); eGFR NON AFRICAN AMERICAN > 90 mL/min (90-120)
[2018-11-15 13:41] LABS: MAGNESIUM - SERUM 2.5 mg/dL (1.8-2.4); PHENOBARBITAL 35.4 ug/mL (15.0-40.0)
[2018-11-15] MEDS ORDERED: PERCOCET 10-321 EAC1 PO (15:17)
[2018-11-15 16:50] VITALS: BP 130/69
== END 2018-11-15 16:39 | disposition home or self-care (01) ==
LOC: D.ER 12:06
PROVIDERS: Family Medicine
DX: G40.909 Epilepsy, unspecified, not intractable, without status epilepticus (principal); S42.142A Displaced fracture of glenoid cavity of scapula, left shoulder, initial encounter for closed fracture; W18.30XA Fall on same level, unspecified, initial encounter; Y93.89 Activity, other specified; Y92.019 Unspecified place in single-family (private) house as the place of occurrence of the external cause

== ENCOUNTER → 2018-11-21 15:57 | Outpatient (CLI) | payer MEDICARE ==
[~2018-11-21 15:57] MED LIST changes: +ASPIRIN EC81 M1 PO; +BYSTOLIC20 MG PO; +CARAFATE1 G PO; +LATUDA80 MG PO; +NEURONTIN 300300 MG PO; +NITRO-DUR0.2 MG TRANSDERM; +PERCOCET 10-321 EAC1 PO; +PROTONIX40 MG PO
== END | disposition home or self-care (01) ==
LOC: D.CT 15:57
DX: S42.142A Displaced fracture of glenoid cavity of scapula, left shoulder, initial encounter for closed fracture (principal)

== ENCOUNTER 2018-12-20 10:45 | Observation (INO) | payer MEDICARE ==
[~2018-12-20] VITALS: Ht 185.4 cm; Wt 90.9 kg
[~2018-12-20 10:45] MED LIST changes: -CARAFATE1 G PO; -NITRO-DUR0.2 MG TRANSDERM; -PROTONIX40 MG PO
[2018-12-20 11:14] LABS: BASOPHILS 0.3 % (0-2); EOSINOPHILS 6.8 % (0-7); HEMATOCRIT 48.5 % (42.0-54.0); HEMOGLOBIN 16.9 g/dL (13.5-17.5); IMMATURE GRANULOCYTES 0.5 % (0-5); LYMPHOCYTES 30.9 % (15-50); MCH 34.6 pg (26.0-34.0); MCHC 34.8 g/dL (31.0-37.0); MCV 99.4 fL (80.0-100.0); MEAN PLATELET VOLUME 9.3 fL (7.4-10.4); MONOCYTES 9.5 % (2-11); PLATELET COUNT 193 10x3/uL (130-400); RBC 4.88 10x6/uL (4.20-6.10); RDW 13.2 % (11.5-14.5); WBC 7.4 10x3/uL (4.8-10.8)
[2018-12-20 11:30] LABS: APTT 26.5 SECONDS (22.8-39.4); PROTIME 12.7 SECONDS (11.6-15.0)
[2018-12-20 11:35] LABS: ALBUMIN 3.9 g/dL (3.4-5.0); ALKALINE PHOSPHATASE 84 U/L (46-116); ALT (SGPT) 72 U/L (10-68); BILIRUBIN - TOTAL 0.34 mg/dL (0.2-1.3); CALC OSMOLALITY 270 mosm/kg (275-300); CARBON DIOXIDE 28.6 mmol/L (21.0-32.0); CHLORIDE - SERUM 98 mmol/L (98-107); CREATININE - SERUM 0.9 mg/dL (0.6-1.3); GLUCOSE 113 mg/dL (74-106); POTASSIUM - SERUM 4.1 mmol/L (3.5-5.1); PROTEIN - SERUM 8.3 g/dL (6.4-8.2); SODIUM 135 mmol/L (136-145); UREA NITROGEN 12 mg/dL (7-18); eGFR NON AFRICAN AMERICAN > 90 mL/min (90-120)
[2018-12-20 11:49] LABS: CKMB 2.3 U/L (0.0-3.6); CREATINE KINASE 184 UL (21-232); MAGNESIUM - SERUM 2.1 mg/dL (1.8-2.4)
[2018-12-20 11:53] LABS: TROPONIN-I < 0.017 ng/mL (0.000-0.060)
[2018-12-20] MEDS ORDERED: NEURONTIN 300300 MG PO (14:34)
--- NOTE | 2018-12-20 14:46 | NUR ---
ADMITTED FROM ER. ALERT AND ORIENTED. C/O OF STILL HAVING PAIN., BUT IS DRIFFING OFF TO SLEEP. SL TO RIGHT AC. TELEMERTY SHOWES SR 91. SR UP WITH CALL LIGHT IN REACH
[2018-12-20 14:53] VITALS: BMI 26.4
[2018-12-20 15:02] VITALS: Ht 185.4 cm; Wt 90.9 kg
--- NOTE | 2018-12-20 15:02 | NUR ---
ASSESSMENT COMPLETE PT EATING HAMBURGER AT THIS TIME DENIES ANY NEEDS AT THIS TIME TELEMETRY SHOWS SR 91
[2018-12-20 15:58] VITALS: BP 120/80
[2018-12-20 16:14] LABS: UDS - AMPHET NEGATIVE QUAL (NEGATIVE); UDS - BARB POSITIVE QUAL (NEGATIVE); UDS - BENZO POSITIVE QUAL (NEGATIVE); UDS - COCAINE NEGATIVE QUAL (NEGATIVE); UDS - OPIATE POSITIVE QUAL (NEGATIVE); UDS - PCP NEGATIVE QUAL (NEGATIVE); UDS - THC POSITIVE QUAL (NEGATIVE)
[2018-12-20 16:18] LABS: APPEARANCE CLEAR (CLEAR); BILIRUBIN NEGATIVE (NEGATIVE); COLOR DK YELLOW (YELLOW); GLUCOSE NEGATIVE (NEGATIVE); KETONE NEGATIVE (NEGATIVE); NITRITE NEGATIVE (NEGATIVE); PROTEIN NEGATIVE (NEGATIVE); UROBILINOGEN NORMAL (NORMAL)
--- NOTE | 2018-12-20 19:15 | NUR ---
RECEIVED REPORT, WILL ASSUME CARE OF PT, DENIES ANY NEEDS AT THIS TIME, BED IS LOW, SRX2, CALL LIGHT IN REACH, WILL CONTINUE PLAN OF CARE
[2018-12-20 20:00] VITALS: BP 110/74
--- NOTE | 2018-12-20 22:09 | NUR ---
PT WENT OUTSIDE, I ADVISED HIM NOT TO
--- NOTE | 2018-12-20 22:18 | NUR ---
PT IS BACK, PROVIDED PT WITH A FAN
--- NOTE | 2018-12-20 23:50 | NUR ---
SLEEPING, NO DISTRESS NOTICED AT THIS TIME, CALL LIGHT IN REACH, WILL CONTINUE PLAN OF CARE, FAMILY AT BEDSIDE
--- NOTE | 2018-12-21 03:31 | NUR ---
I have reviewed this patient and I concur with the Shift Assessment completed by the Licensed Practical Nurse today this shift.
[2018-12-21 04:00] VITALS: BP 108/69
[2018-12-21 04:51] LABS: BASOPHILS 0.4 % (0-2); EOSINOPHILS 8.7 % (0-7); HEMATOCRIT 43.6 % (42.0-54.0); HEMOGLOBIN 14.9 g/dL (13.5-17.5); IMMATURE GRANULOCYTES 0.4 % (0-5); LYMPHOCYTES 32.1 % (15-50); MCH 34.3 pg (26.0-34.0); MCHC 34.2 g/dL (31.0-37.0); MCV 100.5 fL (80.0-100.0); MEAN PLATELET VOLUME 9.2 fL (7.4-10.4); MONOCYTES 9.1 % (2-11); NEUTROPHILS 49.3 % (40-80); PLATELET COUNT 172 10x3/uL (130-400); RBC 4.34 10x6/uL (4.20-6.10); RDW 13.2 % (11.5-14.5); WBC 7.5 10x3/uL (4.8-10.8)
[2018-12-21 05:14] LABS: CALC OSMOLALITY 269 mosm/kg (275-300); CARBON DIOXIDE 23.7 mmol/L (21.0-32.0); CHLORIDE - SERUM 98 mmol/L (98-107); GLUCOSE 185 mg/dL (74-106); SODIUM 132 mmol/L (136-145); UREA NITROGEN 13 mg/dL (7-18); eGFR NON AFRICAN AMERICAN 85 mL/min (90-120)
[2018-12-21 08:18] VITALS: BP 128/80
[2018-12-21 11:57] VITALS: BP 133/74
[2018-12-21] MEDS ORDERED: NITRO-DUR0.2 MG TRANSDERM (11:59)
[2018-12-21] MEDS ORDERED: CARAFATE1 G PO (12:01)
[2018-12-21] MEDS ORDERED: PROTONIX40 MG PO (12:01)
--- NOTE | 2018-12-21 13:43 | NUR ---
IV AND TELEMETRY DCD. DC PLANS GIVEN. UNDERSTANDING VOICED. ESCORTED TO CAR BY W/C.
--- NOTE | 2018-12-23 08:59 | MORECARE ---
CASE MANAGEMENT DISCHARGE SUMMARY PATIENT: TORI MATTSON UNIT: [id number] ADM DATE: 12/20/18 AGE: 48 : 72 SEX: M ROOM/BED: D.2119 AUTHOR: JIL DAWSON PHYSICIAN: REFERRING PHYSICIAN: USHA CRAFT MD DATE OF SERVICE: 12/23/18 Discharge Plan Patient Name: TORI MATTSON [facility] [facility] 1970 Planned Disposition: Home Anticipated Discharge Date: 12/21/18 Discharge Date: 12/21/2018 Expected LOS: 1 Initial Reviewer: [email or web address] Initial Review Date: 12/23/2018 Generated: 12/23/18 9:58 am Coverage Notice Reviewer: [email or web address] Teodora Richardson Notice Issued Date-Time: 12/21/2018 12:00 Notice Type: Medicare Outpatient Observation Notice Notice Delivered To: Patient Relationship to Patient: Wind Turbine Performance Engineer Name: Delivery Method: HAND - Hand Delivered Stephany Days: Prior Verbal Notification: Recipient Understood Notice: Yes Recipient Signature: Yes Med Rec Note Co-signed by Attending: Coverage Notice Comment: Patient Name: TORI MATTSON Page [phone] at 0859 All edits/amendments must be made on the electronic document DICTATION DATE: 12/23/18857 SEWING MACHINE REPAIRER HELPER: JON 12/23/18 0858 RPT#: [id number] DC DATE:12/21/18 STATUS: DIS IN [facility] [address] [place] [address] END OF REPORT
--- NOTE | 2018-12-23 09:06 | MORECARE ---
CASE MANAGEMENT DISCHARGE SUMMARY PATIENT: TORI MATTSON UNIT: [id number] ADM DATE: 12/20/18 AGE: 48 : 72 SEX: M ROOM/BED: D.5529 AUTHOR: JIL DAWSON PHYSICIAN: REFERRING PHYSICIAN: USHA CRAFT MD DATE OF SERVICE: 12/23/18 Discharge Plan Patient Name: TORI MATTSON [facility] : 1970 Planned Disposition: Home Anticipated Discharge Date: 12/21/18 Discharge Date: 12/21/2018 Expected LOS: 1 Initial Reviewer: [email or web address] Initial Review Date: 12/23/2018 Generated: 12/23/18 10:05 am Coverage Notice Reviewer: [email or web address] Teodora Richardson Notice Issued Date-Time: 12/21/2018 12:00 Notice Type: Medicare Outpatient Observation Notice Notice Delivered To: Patient Relationship to Patient: Sales And Marketing Professional Name: Delivery Method: HAND - Hand Delivered Stephany Days: Prior Verbal Notification: Recipient Understood Notice: Yes Recipient Signature: Yes Med Rec Note Co-signed by Attending: Coverage Notice Comment: Patient Name: TORI MATTSON Page [id number] at 0906 All edits/amendments must be made on the electronic document DICTATION DATE: 12/23/18904 BACTERIOLOGY TEACHER: JON 12/23/18904 RPT#: [id number] DC DATE:12/21/18 STATUS: DIS IN [facility] [address] [place] [address] END OF REPORT
== END 2018-12-21 13:45 | disposition home or self-care (01) ==
LOC: D.ER 10:45 → OBSVTIME 13:53 → D.EDHOLD 13:53 → D.M2 13:57
PROVIDERS: Family Medicine; ADMIT Internal Medicine Nephrology; ATTEND Internal Medicine Nephrology
DX: R07.9 Chest pain, unspecified (principal); I25.110 Atherosclerotic heart disease of native coronary artery with unstable angina pectoris; I10 Essential (primary) hypertension; F32.9 Major depressive disorder, single episode, unspecified; F41.9 Anxiety disorder, unspecified; F17.213 Nicotine dependence, cigarettes, with withdrawal; F12.90 Cannabis use, unspecified, uncomplicated; F11.90 Opioid use, unspecified, uncomplicated; F13.90 Sedative, hypnotic, or anxiolytic use, unspecified, uncomplicated; F43.10 Post-traumatic stress disorder, unspecified

== ENCOUNTER 2018-12-27 03:02 | Emergency (ER) | payer MEDICARE ==
[~2018-12-27] VITALS: Ht 185.4 cm; Wt 110.0 kg
[~2018-12-27 03:02] MED LIST changes: +CARAFATE1 G PO; +NITRO-DUR0.2 MG TRANSDERM; +PROTONIX40 MG PO
[2018-12-27 03:16] VITALS: Ht 185.4 cm; Wt 110.0 kg
[2018-12-27 04:00] LABS: BASOPHILS 0.6 % (0-2); EOSINOPHILS 7.6 % (0-7); HEMATOCRIT 41.8 % (42.0-54.0); HEMOGLOBIN 14.3 g/dL (13.5-17.5); IMMATURE GRANULOCYTES 0.3 % (0-5); LYMPHOCYTES 42.5 % (15-50); MCH 34.4 pg (26.0-34.0); MCHC 34.2 g/dL (31.0-37.0); MCV 100.5 fL (80.0-100.0); MEAN PLATELET VOLUME 9.5 fL (7.4-10.4); MONOCYTES 10.2 % (2-11); NEUTROPHILS 38.8 % (40-80); PLATELET COUNT 173 10x3/uL (130-400); RBC 4.16 10x6/uL (4.20-6.10); RDW 13.6 % (11.5-14.5); WBC 7.2 10x3/uL (4.8-10.8)
[2018-12-27 04:12] LABS: INR 1.04 (0.85-1.17); PROTIME 13.1 SECONDS (11.6-15.0)
[2018-12-27 04:13] LABS: APTT 26.7 SECONDS (22.8-39.4)
[2018-12-27 04:16] LABS: ALBUMIN 3.4 g/dL (3.4-5.0); ALKALINE PHOSPHATASE 63 U/L (46-116); ALT (SGPT) 59 U/L (10-68); BILIRUBIN - TOTAL 0.14 mg/dL (0.2-1.3); CALC OSMOLALITY 268 mosm/kg (275-300); CALCIUM 8.5 mg/dL (8.5-10.1); CHLORIDE - SERUM 98 mmol/L (98-107); CREATININE - SERUM 0.9 mg/dL (0.6-1.3); PROTEIN - SERUM 7.3 g/dL (6.4-8.2); SODIUM 134 mmol/L (136-145); UREA NITROGEN 16 mg/dL (7-18); eGFR NON AFRICAN AMERICAN > 90 mL/min (90-120)
[2018-12-27 04:20] LABS: GLUCOSE 106 mg/dL (74-106)
[2018-12-27 04:29] LABS: CKMB 1.8 U/L (0.0-3.6); CREATINE KINASE 129 UL (21-232); TROPONIN-I < 0.017 ng/mL (0.000-0.060)
[2018-12-27 06:17] VITALS: BP 114/66
== END 2018-12-27 06:20 | disposition home or self-care (01) ==
LOC: D.ER 03:02
PROVIDERS: Family Medicine
DX: R07.89 Other chest pain (principal)

== ENCOUNTER 2019-08-18 11:15 | Inpatient (IN) | payer MEDICARE ==
[~2019-08-18] VITALS: Ht 185.4 cm; Wt 104.1 kg
--- NOTE | ~2019-08-18 | HEMODYNAMI ---
PATIENT:TORI MATTSON MEDICAL RECORD: [id number] : 72 [facility] D2[id number] ADMISSION DATE: 08/19/19 Generatedon:08/20/20199:29 Patient name: TORI MATTSON Patient #: [id number] SSN: [id number] : 1970 Date of study: 08/20/2019 Page: Of Hemodynamic Procedure Report Patient Data Patient Demographics Procedure consent was obtained First Name: TORI Gender: Male Last Name: SRINIVASAN : 1970 Middle Initial: SIMRAN TRACY Age: 49 year(s) Patient #: [id number] Race: SSN: [id number] Additional ID: [id number] Contact details Address: [address] [place] [address] State: [place] City: [place] Zip code: [address] Past Medical History History of disease Date Diagnosis Comments CAD Previous ME->ST elevation ME Allergies Allergen Reaction Date Comments Reported Other allergy 08/20/2019 TRAMADOL, VANCOMYCIN, TIZANIDINE Admission Admission Data Admission Date: 08/19/2019 Admission Time: 18:05 Arrival Date: 08/20/2019 Arrival Time: 0:00 Admit Source: Other Insurance Payor: Medicare Room #: D.2122 [facility] #: [id number] Height (in.): 73 BSA: 2.28 (m2) Height (cm.): 185.42 BMI: 30.21 (kg/m2) Weight (lbs.): 229 Weight (kg.): 103.87 Lab Results Lab Result Date: 08/20/2019 Lab Result Time: 0:00 Biochemistry Name Units Result Min Max BUN mg/dl 17 --(---*)-- 7 18 CK-MB ng/ml 3.9 --(----)*- 0 3.6 Creatinine mg/dl 0.9 --(-*--)-- 0.6 1.3 eGFR ml/min 90 --(*---)-- 90 120 NONAFRICAN Troponin l ng/ml 0.017 --(-*--)-- 0 0.06 CBC Name Units Result Min Max Hematocrit % 47.2 --(-*--)-- 42 54 Hemoglobin g/dl 16 --(--*-)-- 13.5 17.5 Procedure Procedure Types Cath Procedure Diagnostic Procedure LHC LHC w/Coronaries w/Grafts FFR/IVUS FFR Initial Sedation Charges Moderate Sedation up to 30 minutes PCI Procedure Coronary Stent Coronary Stent Initial Hemochron ACT Test Procedure Description Procedure Date Procedure Date: 08/20/2019 Procedure Start Time: 8:56 Procedure End Time: 9:24 Procedure Staff Name Function Jamey Chavez MD Performing Physician Ritesh Gallagher RN Nurse Nruia Weems RT Scrub [facility] RT Monitor Indication Chest pain Dyspnea Procedure Data Cath Procedure Fluoroscopy Diagnostic fluoroscopy Total fluoroscopy Time: 9.2 time: 9.2 min min Diagnostic fluoroscopy Total fluoroscopy dose: 420 dose: 420 mGy mGy Contrast Material Contrast Material Type Amount (ml) Isovue 300 133 Entry Location Entry Primary Successful Side Size Upsize Upsize Entry Closure Succes sful Closure Location (Fr) 1 (Fr) 2 (Fr) Remarks Device Remarks Femoral Right 5 Fr 6 Fr Exoseal artery Short Estimated blood loss: 10 ml Diagnostic catheters Device Type Used For End Catheter Placement MULTIPACK Pigtail 5 Fr Procedure catheter MULTIPACK JL 4.0 5Fr Procedure catheter MULTIPACK 3DRC 5Fr Procedure catheter Procedure Complications No complications Procedure Medications Medication Administration Route Dosage 0.9% NaCl I.V. 100 ml/hr Oxygen etCO2 Nasal cannula 2 l/min Heparin Flush Bag added to field 2 bags (1000units/500ml NS) Lidocaine 2% added to field 20 Versed I.V. 2 mg Fentanyl I.V. 100 mcg Versed I.V. 1 mg Heparin Bolus I.V. 4000 units Hemodynamics Rest BSA: 2.28 (m2) HGB: 16 (g/dl) O2 Consumption: Estimated: 268.94 (ml/min) O2 Cons umption indexed: Estimated:117.96 (ml/min/m) Heart Rate: 64 (bpm) Snapshots Pre Cath Intra NCS Post Cath Vital Signs Time Heart Resp SPO2 etCO2 NIBP Rhythm Pain Sedation Rate (ipm) (%) (mmHg) (mmHg) Status Level (bpm) 8:46:53 77 22 99 33.3 108/66(81) NSR 0 (11) 10(A) , No pain 8:51:03 62 19 98 31.8 105/56(72) NSR 0 (11) 10(A) , No pain 8:55:09 73 10 98 18.9 99/66(78) NSR 0 (11) 10(A) , No pain 8:59:14 71 14 97 32.6 89/58(74) NSR 0 (11) 10(A) , No pain 9:03:14 71 15 95 32.6 99/65(82) NSR 0 (11) 10(A) , No pain 9:07:20 67 15 98 18.2 96/56(83) NSR 0 (11) 9(A) , No pain 9:11:26 72 14 97 28 105/55(74) NSR 0 (11) 9(A) , No pain 9:15:36 71 17 96 32.6 88/56(73) NSR 0 (11) 9(A) , No pain 9:19:37 69 11 96 32.6 106/56(85) NSR 0 (11) 9(A) , No pain 9:23:45 70 7 94 31.8 98/59(73) NSR 0 (11) 9(A) , No pain Medications Time Medication Route Dose Verified Delivered Reason Notes Effectiveness by by 8:45:17 0.9% NaCl I.V. 100 Ritesh Ritesh Per physician ml/hr Aileen Gallagher RN RN 8:45:27 Oxygen etCO2 2 Ritesh Ritesh for low 02 sats Nasal l/min Aileen Gallagher cannula RN RN 8:45:41 Heparin Flush added 2 Ritesh Ritesh used for Bag to bags Aileen Gallagher procedure (1000units/500ml field DURAN RN NS) 8:45:52 Lidocaine 2% added 20ml Ritesh Ritesh for local to vial Aileen Gallagher anesthetic field ROGER DURAN 8:54:49 Versed I.V. 2 mg Ritesh Ritesh for sedation Aileen Gallahger RN RN 8:55:01 Fentanyl I.V. 100 Ritesh Ritesh for sedation mcg Aileen Gallagher RN, RN 8:57:54 Versed I.V. 1 mg Ritesh Ritesh for sedation Lorigan Lorigan RN RN 9:05:19 Heparin Bolus I.V. 4000 Ritesh Awad for units Aileen Gallagher anticoagulation RN pocket machine operator Log Time Note 8:06:14 Patient Height : 73 inches 8:06:22 Patient Weight : 229 lbs 8:10:05 Risk of Mortality: 0.1 8:10:07 Risk of blood transfusion: 0.2 8:10:10 Risk of JANIYA: 0.3 8:10:16 Arrival Date: 08/20/2019 12:00:00 AM 8:10:22 Insurance Payor : Medicare 8::23 Admit Source: Other 8:: Lab Result : BUN 17 mg/dl 8:: Lab Result : eGFR NONAFRICAN 90 ml/min 8:: Lab Result : Hemoglobin 16 g/dl 8:: Lab Result : Hematocrit 47.2 % 8::25 Lab Result : Creatinine 0.9 mg/dl 8:: Lab Result : CK-MB 3.9 ng/ml 8::25 Lab Result : Troponin l 0.017 ng/ml 8:14:23 Informed consent obtained and on chart 8:14:33 Diagnostic Cath Status : Urgent 8:14:58 Indication : Chest pain 8:15:01 Indication : Dyspnea 8:15:07 Procedure Status Urgent Heart Cath (IP). 8:15:12 Time tracking: Regular hours (M-F 7:00 - 5:00) 8:15:16 Plan of Care:Hemodynamics will remain stable., Cardiac rhythm will remain stable., Comfort level will be maintained., Respiratory function will remain adequate., Patient/ family verbilizes understanding of procedure., Procedure tolerated without complication., Recovers from procedure without complications.. 8:15:43 Stress Test: no; N/A ? 8:15:45 Lab results completed and on chart. 8:16:59 Patient allergic to Other allergyTRAMADOL, VANCOMYCIN, TIZANIDINE 8:25:50 Ritesh Gallagher RN sent for patient. Start room use. 8:33:43 Patient received from Med II to CCL 3 Alert and oriented. Tansferred to table in Supine position. 8:33:44 Warm blankets applied, and ana hugger turned on for patient comfort. 8:33:44 Correct patient and procedure confirmed by team. 8:33:45 ECG and BP/O2 sat monitors applied to patient. 8:45:17 0.9% NaCl 100 ml/hr I.V. was administered by Ritesh Gallagher RN; Per physician; Verbal order read back and verified. 8:45:27 Oxygen 2 l/min etCO2 Nasal cannula was administered by Ritesh Gallagher RN; for low 02 sats; Verbal order read back and verified. 8:45:41 Heparin Flush Bag (1000units/500ml NS) 2 bags added to field was administered by Ritesh Gallagher RN; used for procedure; Verbal order read back and verified. 8:45:52 Lidocaine 2% 20ml vial added to field was administered by Ritesh Gallagher RN; for local anesthetic; Verbal order read back and verified. 8:45:52 Vital chart was started 8:45:57 Baseline sample Acquired. 8:46:02 Rhythm: sinus rhythm 8:46:03 Full Disclosure recording started 8:46:05 H&P Date Dictated: 08/20/2019 New H&P dictated by physician.. 8:46:06 Pre-procedure instructions explained to patient. 8:46:06 Pre-op teaching completed and patient verbalized understanding. 8:46:07 Family in patients room. 8:46:09 Patient NPO since Midnight. 8:46:10 Is the patient allergic to Iodine/contrast media? No. 8:46:11 Is patient on blood thinner?Yes 8:46:15 ACC The patient was administered the following blood thiners within the last 24 hours: ACCBrilinta 8:46:16 Patient diabetic? No. 8:46:19 Previous problem with sedation/anesthesia? No ? 8:46:20 Snore? Yes 8:46:21 Sleep apnea? No 8:46:22 Deviated septum? No 8:46:23 Opens mouth fully? Yes 8:46:23 Sticks out tongue? Yes 8:46:25 Airway obstruction? No ? 8:46:26 Dentures? No ? 8:46:28 Pre procedure: right dorsailis pedis pulse 1+ Palpable, but thready & weak; easily obliterated 8:46:35 Patient pain scale 0/10 LIGHT PRESSSURE. 8:46:42 IV patent on arrival in left forearm with 0.9% NaCl at [facility]. 8:46:46 Right groin area was prepped with chlora-prep and draped in sterile fashion 8:46:47 Alarms reviewed by R. N. 8:46:47 Sharps counted by scrub and verified by R.N. 8:46:50 Use device set Femoral Dx 8:46:50 ACIST Syringe (90901) opened to sterile field. 8:46:51 Bag Decanter (2002S) opened to sterile field. 8:46:52 ACIST Hand Control (08029) opened to sterile field. 8:46:52 ACIST Manifold (53982) opened to sterile field. 8:46:53 Tegaderm 4 x 4 (1626W) opened to sterile field. 8:46:56 Medline Cath Pack ([id number]) opened to sterile field. 8:46:57 DIAGNOSTIC Multipack 5Fr catheter set (VT2896) opened to sterile field. 8:46:57 SHEATH 5FR [place] (UQZ862) opened to sterile field. 8:46:58 EMERALD Guide Wire (211-399) opened to sterile field. 8:54:04 --------ALL STOP TIME OUT------ 8:54:05 Final Timeout: patient, procedure, and site verified with staff and physician. All members of the team are in agreement. 8:54:06 Right groin site verified by team. 8:54:09 Fire Safety Assessment: A--An alcohol-based skin anteseptic being used preoperatively., C--Open oxygen or nitrous oxide is being used., D--An ESU, laser, or fiber-optic light is being used. 8:54:12 Physical assessment completed. ASA score P 2 - A patient with mild systemic disease as per Jamey Chavez MD. 8:54:16 1) 90+ Normal kidney functon but urine findings or structural abnormalities or genetic trait point to kidney disease. 8:54:18 Maximum allowable contrast dose (3.7 X eGFR X 0.75)250 ml. 8:54:21 Sedation plan: IV Moderate Sedation Medication:Versed, Fentanyl 8:54:49 Versed 2 mg I.V. was administered by Ritesh Gallagher RN; for sedation; Verbal order read back and verified. 8:55:01 Fentanyl 100 mcg I.V. was administered by Ritesh Lorigan RN; for sedation; Verbal order read back and verified. 8:55:58 Zero performed for pressure channel P1 8:56:56 Procedure started. 8:56:59 Local anesthetic to right femoral artery with Lidocaine 2% by Jamey Chavez MD.INITIAL ACCESS ONLY 8:57:54 Versed 1 mg I.V. was administered by Ritesh Gallagher RN; for sedation; Verbal order read back and verified. 8:59:11 A 5 Fr sheath was inserted into the Right Femoral artery 8:59:21 A MULTIPACK Pigtail 5 Fr catheter was advanced over the wire and used for Procedure. 8:59:32 LV gram done using ORTIZ 8:59:35 Injector settings: Ml/sec: 10, Volume: 20, 8:59:52 EF : 35 % 8:59:54 Catheter removed. 8:59:58 A MULTIPACK JL 4.0 5Fr catheter was advanced over the wire and used for Procedure. 9:01:07 LCA angiography performed. 9:01:08 Catheter removed. 9:01:11 A MULTIPACK 3DRC 5Fr catheter was advanced over the wire and used for Procedure. 9:02:17 PORTILLO to LAD angiography performed. 9:03:22 RCA angiography performed. 9:03:23 Catheter removed. 9:03:50 SHEATH 6FR [place] (TWG029) opened to sterile field. 9:03:57 CHOICE PT Extra Support 182cm wire ([id number]) opened to sterile field. 9:04:01 [place] Verrata Plus pressure wire (55523X) opened to sterile field. 9:04:24 Sheath upsized to a 6 Fr Short. 9:04:38 INFLATOR Merit BasixCompak (GN6243) opened to sterile field. 9:04:57 GUIDE 6FR GENNARO 90 catheter ([id number]) opened to sterile field. 9:05:03 Proceeding to intervention. 9:05:17 6 Fr GENNARO 90 guide catheter was inserted over the wire 9:05:19 Heparin Bolus 4000 units I.V. was administered by Ritesh Gallagher RN; for anticoagulation; Verbal order read back and verified. 9:09:57 Guide Catheter removed. unable to cannulate vessel. 9:10:09 UNABLE TO CANNULATE PORTILLO.. 9:11:01 GUIDE 6FR EBU 4.0 guide catheter ([id number]) opened to sterile field. 9:11:11 6 Fr EBU 4 guide catheter was inserted over the wire 9:12:10 FFR/IFR wire advanced. 9:12:12 Wire advanced across lesion. 9:13:15 mCirc lesion measured at .94 with IFR 9:13:39 PRESSURE WIRE REMOVED. 9:13:59 CHOICE ES 182 wire advanced. 9:14:35 Pre PCI Site: [place] Ramus has 90% stenosis. 9:15:15 The WARNER RX 3.5 x 08 stent ([id number]) was advanced then removed because of failure to cross lesion 9:17:21 Inflate balloon Inflation number: 1 A Mozec Rx 3.0 x 14 balloon was prepped and advanced across the Ramus , then inflated to 17 SHAQUILLE for 0:00 (min:sec) . 9:17:46 Inflation number: 2 The Mozec Rx 3.0 x 14 balloon was reinflated across the Ramus , to 17 [place] for 0:00 (min:sec) . 9:18:02 Balloon removed over the wire. 9:19:14 Place stent Inflation Number: 3 A WARNER RX 3.5 x 08 stent ([id number]) was prepped and advanced across the Ramus . The stent was deployed at 15 SHAQUILLE for 0:00 (min:sec) . 9:19:47 Stent catheter was removed intact over wire. 9:19:48 Wire removed. 9:19:49 Guide catheter removed. 9:20:05 EXOSEAL 6Fr (EX600) opened to sterile field. 9:20:15 Sheath removed intact; hemostasis achieved with Exoseal to the Right Femoral artery. 9:20:16 Procedure ended.(Physican Out) 9:21:56 Fluoroscopy time 09.20 minutes. 9:21:59 Fluoroscopy dose: 420 mGy 9:21:59 Flurop Dose total: 420 9:22:06 Dose Area Product 2524 mGy/cm. 9:22:10 Contrast amount:Isovue 300 133ml. 9:22:13 Maximum allowable dose exceeded? No. 9:22:14 Sharps counted by scrub and verified by R.N. 9:22:17 Post-op/insertion site Right Femoral artery dressed using a 4 x 4 and Tegaderm. 9:22:20 Post-procedure physical assessment completed. ASA score P 2 - A patient with mild systemic disease as per Jamey Chavez MD. 9:22:24 Post procedure rhythm: sinus rhythm 9::27 Estimated blood loss: 10 ml 9::29 Post procedure instruction explained to patient.Patient verbalizes understanding. 9:22:29 Patient needs reinforcement of post procedure teaching. 9:23:08 Procedure type changed to Cath procedure, Diagnostic procedure, LHC, LHC w/Coronaries w/Grafts, FFR/IVUS, FFR Initial, Sedation Charges, Moderate Sedation up to 30 minutes, PCI procedure, Coronary Stent, Coronary Stent Initial, Hemochron ACT Test 9:24:03 Procedure and supply charges have been captured, reviewed, submitted and are correct. 9:24:04 Procedure Complication : No complications 9:24:12 ACT drawn and resulted at 280 seconds. (normal therapeutic range 180-240 seconds). 9:24:16 Vital chart was stopped 9:24:24 [facility] Findings: MVD- PCI performed (see procedure note) 9:24:26 Operative report dictated upon procedure completion. 9:24:26 See physician's report for complete and final results. 9:24:28 Report given to PCU. 9:24:31 Patient transfered to PCU with Bed. 9:24:33 Procedure ended. 9:24:33 Full Disclosure recording stopped 9:24:40 ACC-PCI Only Patient was given prescriptions, or instructed by Jamey Chavez MD to start/continue the following medications upon discharge: Brilinta 9:24:41 End room use (Document Last) 9:28:51 End room use (Document Last) 9:29:36 End room use (Document Last) Intervention Summary Intervention Notes Time ActionType Lesion and Equipment Used Action# Pressure Duration Attributes 9:15:15 Discard WARNER RX 3.5 x Stent 08 stent ([id number]) 9:17:21 Inflate Ramus Mozec Rx 3.0 x 1 17 00:00 balloon 14 balloon 9:17:46 Reinflate Ramus Mozec Rx 3.0 x 2 17 00:00 balloon 14 balloon 9:19:14 Place stent Ramus WARNER RX 3.5 x 3 15 00:00 08 stent ([id number]) Device Usage Item Name Manufacture Quantity Catalog Number Hospital Part Current Minimal Lot# / Charge Number Stock Stock Serial# Code ACIST Syringe Acist 1 98081 949482 620325 932118 20 (23639) Medical Systems Inc Bag Decanter Microtek 1 088421 03493 662762 5 (2001S) Medical Inc. ACIST Hand Acist 1 29254 785049 688069 233189 5 Control Medical (52753) Systems Inc ACIST Manifold Acist 1 58596 671379 020961 486912 5 (65935) Medical Systems Inc Tegaderm 4 x 4 3M 1 1626W 924200 220824 254082 5 (1626W) Medline Cath Medline 1 [id number] 741786 64580 763955 5 Pack ([id number]) DIAGNOSTIC Cardinal 1 QP5837 464617 81575 422628 30 Multipack 5Fr Health catheter set (DO6557) SHEATH 5FR Terumo 1 JAS122 357692 353515 114783 5 [place] (CMG130) EMERALD Guide Cardinal 1 502-455 064036 930594 373157 5 Wire (502-455) Health MULTIPACK Cardinal 1 785798 5 Pigtail 5 Fr Health catheter MULTIPACK JL Cardinal 1 820867 5 4.0 5Fr Health catheter MULTIPACK 3DRC Cardinal 1 994477 5 5Fr catheter Health SHEATH 6FR Terumo 1 FKG639 114308 912142 223962 40 [place] (AYA336) CHOICE PT [place] 1 [id number] 487880 914936 149134 5 Extra Support Scientific 182cm wire (9015928J2) Bisbee Bisbee 1 53156C 666490 289935532 201972 5 Verrata Plus pressure wire (88150M) INFLATOR Merit Merit 1 OR7642 338111 817687 954402 15 BasixWellfount Medical (QT1669) GUIDE 6FR GENNARO Medtronic 1 LF4RPZZ 287789 86843 845574 1 90 catheter (AC1SQTB) GUIDE 6FR EBU Medtronic 1 KR7RUD37 156177 90055 428006 1 4.0 guide catheter (ZO3ZGC12) WARNER RX 3.5 x Medtronic 1 [id number] 920796 3137519 727389 5 [id number] 08 stent ([id number]) Mozec Rx 3.0 x Cardinal 1 AMR13826 830134 127999440 447320 5 UMOD90 14 balloon Health EXOSEAL 6Fr Cardinal 1 EX600 577385 857132 452202 10 (EX600) Health Signature Audit [place] Stage Time Signature Unsigned Intra-Procedure 08/20/2019 Andria Barney 9:28:51 AM RT(R) Intra-Procedure 08/20/2019 Ritesh 9:29:36 AM Aileen DURAN Intra-Procedure 08/20/2019 Jamey Chavez 9:29:52 AM [place] [address] [place] [address]
[2019-08-18] MEDS ORDERED: NORVASC5 MG PO (11:27)
[2019-08-18 12:12] VITALS: BP 138/86
[2019-08-18 12:33] VITALS: BP 135/89
[2019-08-18 12:40] LABS: BASOPHILS 0.4 % (0-2); EOSINOPHILS 6.4 % (0-7); HEMATOCRIT 42.2 % (42.0-54.0); HEMOGLOBIN 14.3 g/dL (13.5-17.5); IMMATURE GRANULOCYTES 0.3 % (0-5); LYMPHOCYTES 33.2 % (15-50); MCH 34.5 pg (26.0-34.0); MCHC 33.9 g/dL (31.0-37.0); MCV 101.7 fL (80.0-100.0); MEAN PLATELET VOLUME 9.1 fL (7.4-10.4); MONOCYTES 9.1 % (2-11); NEUTROPHILS 50.6 % (40-80); PLATELET COUNT 199 10x3/uL (130-400); RBC 4.15 10x6/uL (4.20-6.10); RDW 13.4 % (11.5-14.5); WBC 7.5 10x3/uL (4.8-10.8)
[2019-08-18 12:52] LABS: APTT 26.6 SECONDS (22.8-39.4); PROTIME 12.7 SECONDS (11.6-15.0)
[2019-08-18 12:54] LABS: CALC OSMOLALITY 276 mosm/kg (275-300); CALCIUM 8.6 mg/dL (8.5-10.1); CARBON DIOXIDE 25.9 mmol/L (21.0-32.0); CHLORIDE - SERUM 102 mmol/L (98-107); GLUCOSE 110 mg/dL (74-106); POTASSIUM - SERUM 4.7 mmol/L (3.5-5.1); SODIUM 137 mmol/L (136-145); UREA NITROGEN 19 mg/dL (7-18); eGFR NON AFRICAN AMERICAN 85 mL/min (90-120)
[2019-08-18 13:11] LABS: ALBUMIN 3.3 g/dL (3.4-5.0); ALKALINE PHOSPHATASE 86 U/L (46-116); ALT (SGPT) 49 U/L (10-68); BILIRUBIN - TOTAL 0.24 mg/dL (0.2-1.3); CKMB 2.2 U/L (0.0-3.6); CREATINE KINASE 132 UL (21-232); MAGNESIUM - SERUM 2.2 mg/dL (1.8-2.4); PROTEIN - SERUM 7.2 g/dL (6.4-8.2)
[2019-08-18 13:12] LABS: TROPONIN-I < 0.017 ng/mL (0.000-0.060)
[2019-08-18 13:25] VITALS: BP 133/89
--- NOTE | 2019-08-18 14:50 | NUR ---
ATTEMPTED TO CALL REPORT/NO NURSE AVAILABLE
--- NOTE | 2019-08-18 15:00 | NUR ---
2ND ATTEMPT TO CALL REPORT/NO NURSE AVAILABLE
--- NOTE | 2019-08-18 15:18 | NUR ---
REPORT TO ROGER SO
[2019-08-18 15:25] VITALS: BP 144/90
--- NOTE | 2019-08-18 15:25 | NUR ---
TRANSPORTED TO ROOM #2122, CONDITION STABLE
[2019-08-18] MEDS ORDERED: KLONOPIN0.5 MG PO (15:48)
[2019-08-18 16:00] VITALS: BP 138/89
[2019-08-18 16:13] VITALS: BMI 22.3
[2019-08-18 18:43] LABS: CKMB 2.2 U/L (0.0-3.6); CREATINE KINASE 121 UL (21-232); TROPONIN-I < 0.017 ng/mL (0.000-0.060)
--- NOTE | 2019-08-18 20:39 | NUR ---
MORPHINE 4 MG GIVEN FOR C/O CHEST PAIN, RATES PAIN AT AN 8 ON PAIN SCALE.
[2019-08-18 20:41] VITALS: BP 133/83
[2019-08-19 00:35] VITALS: BP 136/87
[2019-08-19 00:44] LABS: CKMB 2.6 U/L (0.0-3.6); CREATINE KINASE 117 UL (21-232)
[2019-08-19 00:49] LABS: TROPONIN-I < 0.017 ng/mL (0.000-0.060)
[2019-08-19 04:00] VITALS: BP 144/94
[2019-08-19 07:05] LABS: ALBUMIN 3.9 g/dL (3.4-5.0); ALKALINE PHOSPHATASE 98 U/L (46-116); ALT (SGPT) 61 U/L (10-68); BILIRUBIN - TOTAL 0.22 mg/dL (0.2-1.3); CALC OSMOLALITY 272 mosm/kg (275-300); CALCIUM 9.2 mg/dL (8.5-10.1); CARBON DIOXIDE 26.4 mmol/L (21.0-32.0); CHLORIDE - SERUM 99 mmol/L (98-107); CKMB 3.9 U/L (0.0-3.6); CREATINE KINASE 139 UL (21-232); CREATININE - SERUM 0.9 mg/dL (0.6-1.3); GLUCOSE 110 mg/dL (74-106); POTASSIUM - SERUM 4.6 mmol/L (3.5-5.1); PROTEIN - SERUM 8.1 g/dL (6.4-8.2); SODIUM 135 mmol/L (136-145); TROPONIN-I < 0.017 ng/mL (0.000-0.060); UREA NITROGEN 17 mg/dL (7-18); eGFR NON AFRICAN AMERICAN > 90 mL/min (90-120)
[2019-08-19 07:28] LABS: BASOPHILS 0.4 % (0-2); EOSINOPHILS 6.2 % (0-7); HEMATOCRIT 47.2 % (42.0-54.0); IMMATURE GRANULOCYTES 0.4 % (0-5); MCH 34.3 pg (26.0-34.0); MCHC 33.9 g/dL (31.0-37.0); MCV 101.3 fL (80.0-100.0); MEAN PLATELET VOLUME 9.9 fL (7.4-10.4); MONOCYTES 9.9 % (2-11); NEUTROPHILS 55.1 % (40-80); PLATELET COUNT 196 10x3/uL (130-400); RBC 4.66 10x6/uL (4.20-6.10); RDW 13.2 % (11.5-14.5); WBC 7.5 10x3/uL (4.8-10.8)
--- NOTE | 2019-08-19 07:30 | NUR ---
ASSESSMENT DONE. DENIES NEEDS
[2019-08-19 10:33] VITALS: BP 133/84; BP 162/78
--- NOTE | 2019-08-19 11:22 | NUR ---
I have reviewed this patient and I concur with the Shift Assessment completed by the Licensed Practical Nurse today this shift.
[2019-08-19 15:12] VITALS: BP 143/91
[2019-08-19 20:00] VITALS: BP 95/56
[2019-08-20] VITALS: BP 95/58
--- NOTE | 2019-08-20 01:26 | NUR ---
RESTING WITH EYES CLOSED, RESPERATIONS EVEN, NO S/S DISTRESS NOTED.
--- NOTE | 2019-08-20 02:37 | NUR ---
I have reviewed this patient and I concur with the Shift Assessment completed by the Licensed Practical Nurse today this shift.
[2019-08-20 05:03] VITALS: BP 75/54
--- NOTE | 2019-08-20 05:25 | NUR ---
CONSENTS SIGNED FOR CARDIAC CATH PROCEDURE.
[2019-08-20 07:21] LABS: BASOPHILS 0.3 % (0-2); EOSINOPHILS 3.9 % (0-7); HEMATOCRIT 46.5 % (42.0-54.0); HEMOGLOBIN 15.7 g/dL (13.5-17.5); IMMATURE GRANULOCYTES 0.3 % (0-5); LYMPHOCYTES 25.1 % (15-50); MCH 34.3 pg (26.0-34.0); MCHC 33.8 g/dL (31.0-37.0); MCV 101.5 fL (80.0-100.0); MEAN PLATELET VOLUME 9.1 fL (7.4-10.4); MONOCYTES 6.3 % (2-11); NEUTROPHILS 64.1 % (40-80); PLATELET COUNT 194 10x3/uL (130-400); RBC 4.58 10x6/uL (4.20-6.10); RDW 13.4 % (11.5-14.5)
--- NOTE | 2019-08-20 07:33 | NUR ---
REPORT RECEIVED. WILL CONTINUE WITH POC. PT CURRENTLY SITTING ON EDGE OF BED. CALL LIGHT W/I REACH. PT IS AAO AND UP AD CRYSTAL. NPO FOR TURNTABLE OPERATOR. RR EVEN AND UNLABORED ON RA. L.AC PIV SALINE LOCKED. PT REQUESTING MORPHINE UPON ENTERING THE ROOM. PT DENIES ANY FURTHER NEEDS. NO S/S OF DISTRESS NOTED. WILL CTM.
[2019-08-20 07:34] LABS: WBC 9.5 10x3/uL (4.8-10.8)
[2019-08-20 07:43] LABS: CALCIUM 8.7 mg/dL (8.5-10.1); CARBON DIOXIDE 27.5 mmol/L (21.0-32.0); CHOL - HDL RATIO 6.3 ratio (2.3-4.9); LDL-HDL RATIO 4.6 ratio (1.5-3.5)
[2019-08-20 07:44] LABS: ANION GAP 14.1 mmol/L (8-16); CREATININE - SERUM 1.2 mg/dL (0.6-1.3); POTASSIUM - SERUM 5.6 mmol/L (3.5-5.1)
[2019-08-20 08:00] VITALS: BP 109/69
--- NOTE | 2019-08-20 08:17 | NUR ---
PREOP MEDICATIONS ADMININSTERED PER POSTING CLERK REQUEST. WILL CTM.
--- NOTE | 2019-08-20 09:57 | NUR ---
RECEIVED PT FROM HAND I THERMAL CUTTER. PT IS SUPINE. RR EVEN AND UNLABORED ON RA. R.FEM CATH SITE IS C/D/I WITH NO S/S HEMATOMA PRESENT. NS INFUSING @100ML/HR VIA L.AC PIV. NO S/S OF DISTRESS NOTED. WILL CTM.
--- NOTE | 2019-08-20 10:18 | NUR ---
PATIENT HAS NOT HAD A FLU SHOT FOR 2019. REFUSED TO TAKE ONE UPON DISCHARGE. STATES HE HAS NOT HAD ONE SINCE HE WAS AGE 15.
[2019-08-20 12:23] VITALS: BP 95/61
--- NOTE | 2019-08-20 13:33 | NUR ---
PT DISCHARGED HOME VIA WHEELCHAIR WITH FAMILY. TELEMTRY REMOVED AND RETURNED. PT SIGNED PROPER DISCHARGE INSTRUCTIONS AND REMOVED ALL VALUABLES FROM THE ROOM. PIV REMOVED WITH CATHETER TIP FULLY INTACT.
--- NOTE | 2019-08-20 17:06 | MORECARE ---
CASE MANAGEMENT DISCHARGE SUMMARY PATIENT: TORI MATTSON UNIT: [id number] ADM DATE: 08/19/19 AGE: 49 : 72 SEX: M ROOM/BED: D.7548 AUTHOR: EUNICE,DOC PHYSICIAN: REFERRING PHYSICIAN: ANUPAMA JOHNSON MD DATE OF SERVICE: 08/20/19 Discharge Plan Patient Name: TORI MATTSON Facility: [facility]:[place] : 1970 Planned Disposition: Home Anticipated Discharge Date: 08/20/19 Discharge Date: 08/20/2019 Expected LOS: 1 Initial Reviewer: [email or web address] Initial Review Date: 08/20/2019 Generated: 08/20/19 6:05 pm Comments DCP- Discharge Planning Updated by [email or web address]: Jose Manuel Jha on 08/20/19 4:[address] Patient Name: TORI MATTSON Admission Status: ER Accout number: [id number] Admission Date: 08-19-2019 : 1970 Admission Diagnosis: Attending: ELÍAS JOHNSON Current LOS: 1 Anticipated DC Date: 08-20-2019 Planned Disposition: Home Primary Insurance: MEDICARE A & B Discharge Planning Comments: CM MET WITH PT IN ROOM TO DISCUSS DISCHARGE PLANNING AND NEEDS. PT REPORTS LIVING AT HOME INDEPENDENTLY WITH HIS . PT HAS NO MEDICAL EQUIPMENT AND NO OUTSIDE SERVICES ASSISTING IN THE HOME. CM DISCUSSED AVAILABILITY OF HOME HEALTH, REHAB SERVICES AND MEDICAL EQUIPMENT. PT DENIES DISCHARGE NEEDS, REPORTS HIS WILL PICK HIM UP FOR DISCHARGE HOME. PT ASKED IF HE CAN HAVE [facility], CM SENT MESSAGE TO [facility] WHO INFORMED CM THAT PT IS NOT ADMITTED TO HER AND THAT PT WILL NEED TO FOLLOW UP WITH PRIMARY CARE PHYSICIAN. CM NOTIFIED PT AND VIDEOTAPE SALES REPRESENTATIVE NURSE. Wood Heel Fitter Machine: Jose Manuel Jha DCPIA - Discharge Planning Initial Assessment Updated by [email or web address]: Jose Manuel Jha on 08/20/19 4:59 pm * Is the patient Alert and Oriented? Yes * How many steps to enter\exit or inside your home? NONE * PCP DR. GUPTA * Pharmacy [facility] * Preadmission Environment Home with Family * ADLs Independent * Equipment None * Other Equipment NO MEDICAL EQUIPMENT PROVIDER PREFERENCE * List name and contact numbers for known caregivers / representatives who currently or will assist patient after discharge: CECILIA MATTSONBIANKA, * Verbal permission to speak to the caregivers and representatives has been obtained from the patient. Yes * Community resources currently utilized None * Please name any agencies selected above. NONE * Additional services required to return to the preadmission environment? No * Can the patient safely return to the preadmission environment? Yes * Has this patient been hospitalized within the prior 30 days at any hospital? No Coverage Notice Reviewer: [email or web address] Teodora Maria Notice Issued Date-Time: 08/18/2019 12:00 Notice Type: Medicare Outpatient Observation Notice Notice Delivered To: Patient Relationship to Patient: Hospital Medicine Director Name: Delivery Method: HAND - Hand Delivered Stephany Days: Prior Verbal Notification: Recipient Understood Notice: Yes Recipient Signature: Yes Med Rec Note Co-signed by Attending: Coverage Notice Comment: Patient Name: TORI MATTSON Page 74810 at 1706 All edits/amendments must be made on the electronic document DICTATION DATE: 08/20/191704 COMBINATION BUILDING INSPECTOR: JON 08/20/191704 RPT#: [id number] DC DATE:08/20/19 STATUS: DIS IN [facility] [address] [place] [address] END OF REPORT
--- NOTE | 2019-08-21 14:04 | HP ---
PATIENT: TORI MATTSON MEDICAL RECORD: [id number] ACCOUNT: [id number] LOCATION:[facility].2122 : 72 ADMISSION DATE: 08/19/19 PCP: KAN GUPTA MD HISTORY AND PHYSICAL EXAMINATION DIAGNOSES: 1. Unstable angina. 2. Coronary artery disease. 3. Previous coronary artery bypass graft surgery. 4. Previous multivessel percutaneous transluminal coronary angioplasty stent. 5. Family history of premature coronary artery disease. 6. Hypertension. 7. Hyperlipidemia. HISTORY OF PRESENT ILLNESS: This is a gentleman well known to us with an extensive cardiac history who presents with 1 week of increasing unstable angina. He is now having episodes of rest pain. He has class IV unstable angina, it is just like that of his previous angina. His troponin is normal. He continues to have episodes of chest discomfort. Last cardiac intervention was a year ago. FAMILY HISTORY: Positive for premature coronary artery disease. SOCIAL HISTORY: Lives in [facility]. He is on disability. Denies smoking or ETOH. REVIEW OF SYSTEMS: The patient reports easy bruising but reports no swollen glands. The patient reports no fever, no night sweats, no significant weight gain, no significant weight loss. No significant exercise tolerance. The patient reports no dry eyes, no irritation, no vision change. Patient reports no difficulty hearing and no ear pain. Patient reports no frequent nose bleeds or nose and sinus problems. Patient reports no arm pain on exertion. No shortness of breath while lying down. No history of heart murmur. Patient reports no cough, no wheezing or coughing up blood. Patient reports no abdominal pain, no vomiting. Normal appetite. No diarrhea and not vomiting blood. No nausea and no constipation. Patient reports no incontinence. No difficulty urinating. No hematuria. No increased frequency. Patient reports no muscle aches. No weakness, no arthralgias, no back pain. No swelling of the extremities. Patient reports no abnormal mole, no jaundice, no rashes. Reports no loss of consciousness. No weakness and no numbness. No seizures, dizziness, or headaches. The patient reports no depression, no sleep disturbance, feeling safe in a relationship and no alcohol abuse. Patient reports on fatigue. Reports no runny nose or sinus pressure. No itching, no hives, and no frequent sneezing. PHYSICAL EXAMINATION: CONSTITUTIONAL/GENERAL APPEARANCE: Well nourished, well developed, appears stated age. EYES: Lids and conjunctivae noninjected. No discharge. No pallor. ENT: Lips within normal limit. No cyanosis. No pallor. NECK: Carotid arteries, bilateral normal upstroke. No bruits. No thrills. No jugular venous pressure or distention. CERVICAL LYMPH NODES: Nontender. Nonenlarged. THYROID: Not enlarged. No nodules. CARDIOVASCULAR: Precordial exam, nondisplaced. No heaves or pericardial HISTORY AND PHYSICAL [id number] TORI MATTSON TRACY thrills. Rate and rhythm, regular. Heart sounds, normal S1, normal S2. No S3, no gallop, no rub. Systolic murmur, not heard. Diastolic murmur, not heard. RESPIRATORY: Respiratory effort, unlabored. Normal curvature. No thoracic deformity. No chest wall tenderness. Percussion, resonant. Auscultation, clear. No wheezes, no rales, no rhonchi. ABDOMEN: Soft, nondistended, nontender. No abdominal pain, no vomiting and normal appetite. MUSCULOSKELETAL: No joint tenderness, normal gait, normal tone. SKIN: Warm and dry. OVERALL IMPRESSION: Unstable angina, most likely he has recurrent hemodynamically significant coronary artery disease. We will proceed with coronary angiography in the a.m. Further care depends upon the findings of the angiography. TRANSINT:[id number] Voice Confirmation ID: [id number] DOCUMENT ID: [id number] ANUPAMA JOHNSON MD at 1404 CC: [id number] DICTATION DATE: 08/20/19924 SUPERVISOR STERILE PROCESSING: 08/20/19 1006 DIS IN 08/20/19 [address] [place] [address]
--- NOTE | 2019-08-21 14:04 | DS ---
PATIENT:TORI MATTSON :72 MEDICAL RECORD: [id number] DISCHARGE SUMMARY ADMISSION DATE: 08/19/19 DISCHARGE DATE: 08/20/19 DATE OF SERVICE: 08/20/2019. DISCHARGE DIAGNOSES: 1. Unstable angina. 2. Coronary artery disease. 3. Percutaneous transluminal coronary angioplasty stent ramus intermedius this admission. 4. Hypertension. 5. Hyperlipidemia. HOSPITAL COURSE: Mr. Mattson presents with unstable anginal symptomatology, found to have significant disease of the ramus intermedius, underwent successful PTCA stent of this vessel. Discharged home with no change in his medications as he is already on Brilinta and aspirin. He will follow up with [facility] in 1 month. TRANSINT:[id number] Voice Confirmation ID: [id number] DOCUMENT ID: [id number] ANUPAMA JOHNSON MD at 1404 CC: [id number] DICTATION DATE: 08/20/19925 PHOTO LAB TECHNICIAN: 08/21/19 0746 DIS IN 08/20/19 [id number] [place] [address]
--- NOTE | 2019-08-21 14:04 | OP ---
PATIENT NAME: TORI MATTSON MEDICAL RECORD: [id number] :72 LOCATION:D.M2 D.2122 ADMISSION DATE:08/19/19 SURGEON: ANUPAMA JOHNSON MD DATE OF OPERATION: 08/20/2019 PROCEDURES: 1. PTCA stent ramus intermedius. 2. IFR left circumflex. 3. Left heart catheterization. 4. Selective coronary angiography. 5. Left ventriculogram. 6. PORTILLO angiography. INDICATION: Unstable angina and coronary artery disease. PROCEDURE IN DETAIL: After informed consent was obtained and after a detailed description of risks, benefits as well as alternative therapies, the patient elected to proceed with angiogram and angioplasty. The right femoral area was prepped and draped in normal sterile fashion. Right femoral artery was cannulated via modified Seldinger technique with placement of 6-Welsh sheath. All catheters exchanged through this sheath. FINDINGS: Left ventriculogram was performed in standard 30-degree ORTIZ view, reveals global hypokinesis, ejection fraction 35% to 40%. SELECTIVE CORONARY ANGIOGRAPHY: 1. Left main is with no significant angiographic disease. There is a previously placed stent that is widely patent. 2. Left anterior descending is totally occluded. 3. Ramus intermedius with 90% stenosis at the ostium. This is nongrafted. 4. Left circumflex has a questionable stenosis in the first obtuse marginal; however, IFR is normal. Otherwise, the circumflex has only mild irregularities. 5. PORTILLO to the LAD is widely patent, previously placed stents in the LAD after the PORTILLO are widely patent. 6. The right coronary is small, nondominant, but patent. PTCA STENT OF THE RAMUS INTERMEDIUS: The stent used was a 3.5 x 8 mm Brian. Result was 0% residual stenosis. OVERALL IMPRESSION: Successful percutaneous transluminal coronary angioplasty stent of the ramus intermedius going from 90% initial stenosis to 0% residual. TRANSINT:[id number] Voice Confirmation ID: [id number] DOCUMENT ID: [id number] ANUPAMA JOHNSON MD at 1404 CC: [id number] DICTATION DATE: 08/20/1928 CRIPPLE CUTTER: 08/20/19 1315 DIS IN 08/20/19 [id number] [place] [address]
[2019-08-26 15:08] VITALS: Ht 185.4 cm; Wt 104.1 kg
== END 2019-08-20 13:35 | disposition home or self-care (01) | DRG 247 ==
LOC: D.ER 11:15 → D.M2 11:15 → OBSVTIME 11:59 → D.M2 11:59 → D.ER 14:33 → EDSTATUS 14:36 → D.M2 08-19 16:42 → EDSTATUS 08-28 14:53
PROVIDERS: Family Medicine; ADMIT Internal Medicine Interventional Cardiology; ATTEND Internal Medicine Interventional Cardiology
PROC: B2181ZZ Fluoroscopy of Left Internal Mammary Bypass Graft using Low Osmolar Contrast (ICD-10-PCS; 2019-08-20)
PROC: B2151ZZ Fluoroscopy of Left Heart using Low Osmolar Contrast (ICD-10-PCS; 2019-08-20)
PROC: B2111ZZ Fluoroscopy of Multiple Coronary Arteries using Low Osmolar Contrast (ICD-10-PCS; 2019-08-20)
PROC: 4A033BC Measurement of Arterial Pressure, Coronary, Percutaneous Approach (ICD-10-PCS; 2019-08-20)
PROC: 027034Z Dilation of Coronary Artery, One Artery with Drug-eluting Intraluminal Device, Percutaneous Approach (ICD-10-PCS; principal; 2019-08-20 08:25)
PROC: 4A023N7 Measurement of Cardiac Sampling and Pressure, Left Heart, Percutaneous Approach (ICD-10-PCS; 2019-08-20 08:25)
DX: I25.110 Atherosclerotic heart disease of native coronary artery with unstable angina pectoris (principal); I10 Essential (primary) hypertension; E78.5 Hyperlipidemia, unspecified; K75.9 Inflammatory liver disease, unspecified; F41.8 Other specified anxiety disorders; F17.200 Nicotine dependence, unspecified, uncomplicated

== ENCOUNTER 2019-08-26 07:54 | Observation (INO) | payer MEDICARE ==
[~2019-08-26] VITALS: Ht 185.4 cm; Wt 104.5 kg
[~2019-08-26 07:54] MED LIST changes: +KLONOPIN0.5 MG PO
[2019-08-26 08:28] LABS: CALC OSMOLALITY 279 mosm/kg (275-300); CALCIUM 8.5 mg/dL (8.5-10.1); CARBON DIOXIDE 25.9 mmol/L (21.0-32.0); CHLORIDE - SERUM 100 mmol/L (98-107); POTASSIUM - SERUM 4.1 mmol/L (3.5-5.1); SODIUM 136 mmol/L (136-145); UREA NITROGEN 14 mg/dL (7-18); eGFR NON AFRICAN AMERICAN 85 mL/min (90-120)
[2019-08-26 08:29] LABS: GLUCOSE 223 mg/dL (74-106)
--- NOTE | 2019-08-26 08:30 | NUR ---
PT REFUSED NITRO. "IT GIVES ME A REAL BAD WEST"
[2019-08-26 08:36] LABS: BASOPHILS 0.2 % (0-2); EOSINOPHILS 9.5 % (0-7); HEMATOCRIT 45.8 % (42.0-54.0); HEMOGLOBIN 15.2 g/dL (13.5-17.5); IMMATURE GRANULOCYTES 0.5 % (0-5); LYMPHOCYTES 29.2 % (15-50); MCH 33.9 pg (26.0-34.0); MCHC 33.2 g/dL (31.0-37.0); MEAN PLATELET VOLUME 9.3 fL (7.4-10.4); MONOCYTES 6.2 % (2-11); NEUTROPHILS 54.4 % (40-80); PLATELET COUNT 197 10x3/uL (130-400); RBC 4.49 10x6/uL (4.20-6.10); RDW 13.5 % (11.5-14.5); WBC 8.2 10x3/uL (4.8-10.8)
[2019-08-26 08:43] LABS: ALBUMIN 3.5 g/dL (3.4-5.0); ALKALINE PHOSPHATASE 89 U/L (46-116); ALT (SGPT) 90 U/L (10-68); BILIRUBIN - TOTAL 0.29 mg/dL (0.2-1.3); CKMB 2.6 U/L (0.0-3.6); CREATINE KINASE 153 UL (21-232); PROTEIN - SERUM 7.7 g/dL (6.4-8.2); PROTIME 13.2 SECONDS (11.6-15.0); TROPONIN-I 0.054 ng/mL (0.000-0.060)
[2019-08-26 08:56] VITALS: BP 127/88
[2019-08-26 09:31] VITALS: BP 128/95
--- NOTE | 2019-08-26 09:52 | NUR ---
REPORT CALLED TO DEBBIE BURGER
--- NOTE | 2019-08-26 09:55 | NUR ---
TRANSPORTED TO ROOM #2120, CONDITION STABLE
--- NOTE | 2019-08-26 10:25 | NUR ---
RECIVED FROM ER PER WC TO 2119. ADMIT ASSESSMENT PER RN
[2019-08-26 10:31] VITALS: BP 128/95; BMI 30.4
[2019-08-26 11:37] VITALS: BP 120/80
[2019-08-26 13:37] LABS: UDS - AMPHET NEGATIVE QUAL (NEGATIVE); UDS - BARB POSITIVE QUAL (NEGATIVE); UDS - BENZO NEGATIVE QUAL (NEGATIVE); UDS - COCAINE NEGATIVE QUAL (NEGATIVE); UDS - OPIATE POSITIVE QUAL (NEGATIVE); UDS - PCP NEGATIVE QUAL (NEGATIVE); UDS - THC POSITIVE QUAL (NEGATIVE)
[2019-08-26 14:38] LABS: CKMB 2.4 U/L (0.0-3.6); CREATINE KINASE 198 UL (21-232)
[2019-08-26 14:52] LABS: TROPONIN-I 0.071 ng/mL (0.000-0.060)
[2019-08-26 15:08] VITALS: Ht 185.4 cm; Wt 104.5 kg
[2019-08-26 15:42] VITALS: BP 133/96
--- NOTE | 2019-08-26 18:30 | NUR ---
WITHOUT CHANGES OR DISTRESS NOTED AT THIS TIME.
[2019-08-26 19:00] LABS: APPEARANCE CLEAR (CLEAR); BILIRUBIN NEGATIVE (NEGATIVE); COLOR YELLOW (YELLOW); GLUCOSE NEGATIVE (NEGATIVE); KETONE NEGATIVE (NEGATIVE); NITRITE NEGATIVE (NEGATIVE); PROTEIN NEGATIVE (NEGATIVE); UROBILINOGEN NORMAL (NORMAL)
[2019-08-26 20:27] VITALS: BP 111/67
[2019-08-26 20:35] LABS: CKMB 2.6 U/L (0.0-3.6); CREATINE KINASE 151 UL (21-232)
[2019-08-26 20:37] LABS: TROPONIN-I 0.076 ng/mL (0.000-0.060)
[2019-08-27 03:04] LABS: BASOPHILS 0.3 % (0-2); EOSINOPHILS 11.1 % (0-7); HEMATOCRIT 41.5 % (42.0-54.0); HEMOGLOBIN 13.9 g/dL (13.5-17.5); IMMATURE GRANULOCYTES 0.4 % (0-5); LYMPHOCYTES 41.7 % (15-50); MCH 34.2 pg (26.0-34.0); MCHC 33.5 g/dL (31.0-37.0); MEAN PLATELET VOLUME 8.9 fL (7.4-10.4); MONOCYTES 8.4 % (2-11); NEUTROPHILS 38.1 % (40-80); PLATELET COUNT 184 10x3/uL (130-400); RBC 4.07 10x6/uL (4.20-6.10); RDW 13.3 % (11.5-14.5); WBC 7.5 10x3/uL (4.8-10.8)
[2019-08-27 03:16] LABS: ALBUMIN 2.8 g/dL (3.4-5.0); ALKALINE PHOSPHATASE 71 U/L (46-116); ALT (SGPT) 70 U/L (10-68); BILIRUBIN - TOTAL 0.19 mg/dL (0.2-1.3); CALCIUM 7.9 mg/dL (8.5-10.1); CHLORIDE - SERUM 103 mmol/L (98-107); CKMB 2.5 U/L (0.0-3.6); CREATINE KINASE 133 UL (21-232); POTASSIUM - SERUM 4.3 mmol/L (3.5-5.1); PROTEIN - SERUM 6.5 g/dL (6.4-8.2); SODIUM 138 mmol/L (136-145); TROPONIN-I 0.051 ng/mL (0.000-0.060); UREA NITROGEN 13 mg/dL (7-18); eGFR NON AFRICAN AMERICAN 85 mL/min (90-120)
[2019-08-27 03:19] LABS: CALC OSMOLALITY 276 mosm/kg (275-300); GLUCOSE 122 mg/dL (74-106)
[2019-08-27 04:45] VITALS: BP 98/65
[2019-08-27 10:38] VITALS: BP 84/49
[2019-08-27] MEDS ORDERED: ISOSORBIDE DINI10 MG PO (14:24)
[2019-08-27 15:26] VITALS: BP 136/79
--- NOTE | 2019-08-27 15:33 | NUR ---
IV AND TELEMETRY DCD. DC PLANS GIVEN. UNDERSTANDING VOICED. WAITING ON RIDE.
--- NOTE | 2019-08-27 16:04 | NUR ---
ESCORTED TO CAR BY W/C.
--- NOTE | 2019-08-28 08:16 | MORECARE ---
CASE MANAGEMENT DISCHARGE SUMMARY PATIENT: TORI MATTSON UNIT: [id number] ADM DATE: 08/26/19 AGE: 49 : 72 SEX: M ROOM/BED: D.2120 AUTHOR: JIL DAWSON PHYSICIAN: REFERRING PHYSICIAN: USHA CRAFT MD DATE OF SERVICE: 08/28/19 Discharge Plan Patient Name: TORI MATTSON [facility] [facility] 1970 Planned Disposition: Home Anticipated Discharge Date: 08/27/19 Discharge Date: 08/27/2019 Expected LOS: 1 Initial Reviewer: [email or web address] Initial Review Date: 08/28/2019 Generated: 08/28/19 9:15 am Coverage Notice Reviewer: [email or web address] Teodora Latif Notice Issued Date-Time: 08/27/2019 8:59 Notice Type: Medicare Outpatient Observation Notice Notice Delivered To: Patient Relationship to Patient: Job Developer Name: Delivery Method: HAND - Hand Delivered Stephany Days: Prior Verbal Notification: Recipient Understood Notice: Yes Recipient Signature: Yes Med Rec Note Co-signed by Attending: Coverage Notice Comment: Patient Name: TORI MATTSON Page [phone] at 0816 All edits/amendments must be made on the electronic document DICTATION DATE: 08/28/19814 BOAT OFFICER: JON 08/28/19814 RPT#: [id number] DC DATE:08/27/19 STATUS: DIS IN [facility] [address] [place] [address] END OF REPORT
== END 2019-08-27 16:05 | disposition home or self-care (01) ==
LOC: D.ER 07:54 → D.M2 08:24 → OBSVTIME 09:45 → D.M2 08-27 16:05
PROVIDERS: Family Medicine; ADMIT Internal Medicine Nephrology; ATTEND Internal Medicine Nephrology
DX: I25.110 Atherosclerotic heart disease of native coronary artery with unstable angina pectoris (principal); I10 Essential (primary) hypertension; E78.5 Hyperlipidemia, unspecified; F17.203 Nicotine dependence unspecified, with withdrawal; G62.9 Polyneuropathy, unspecified; G40.909 Epilepsy, unspecified, not intractable, without status epilepticus; F19.90 Other psychoactive substance use, unspecified, uncomplicated; F41.9 Anxiety disorder, unspecified

== ENCOUNTER 2019-09-03 04:39 | Outpatient (CLI) | payer MEDICARE ==
[~2019-09-03] VITALS: Ht 185.4 cm; Wt 109.1 kg
--- NOTE | ~2019-09-03 | DS ---
PATIENT:TORI MATTSON :72 MEDICAL RECORD: [id number] DISCHARGE SUMMARY ADMISSION DATE: 09/03/19 DISCHARGE DATE: 09/04/19 DATE OF DISCHARGE: 09/04/2019 DIAGNOSES: 1. Unstable angina: 2. Coronary artery disease. 3. Percutaneous transluminal coronary angioplasty and stent to the PORTILLO this admission. HOSPITAL COURSE: Mr. Mattson presents with unstable anginal symptomatology, he has a known stenosis of the PORTILLO. We could not intervene on it last time secondary to inability to engage the PORTILLO. We used a 3DRC guide and we were able to engage the PORTILLO, IFR was abnormal, proceeded with percutaneous transluminal coronary angioplasty and stent of the PORTILLO. He had no further anginal symptomatology. Discharged home with no change in medications as he is already on Effient and aspirin. TRANSINT:[id number] Voice Confirmation ID: [id number] DOCUMENT ID: [id number] ANUPAMA JOHNSON MD CC: [id number] DICTATION DATE: 09/04/19 1243 MEDICAL MALPRACTICE PARALEGAL: 09/04/19 2331 DEP CLI 09/04/19 [id number] [place] [address]
--- NOTE | ~2019-09-03 | EC ---
PATIENT:TORI MATTSON DATE OF SERVICE: 09/03/19 SEX: M MEDICAL RECORD: [id number] DATE OF : 72 [facility] AGE OF PATIENT: 49 ADMISSION DATE: 09/03/19 REFERRING PHYSICIAN: INTERPRETING PHYSICIAN: ANUPAMA JOHNSON MD ECHOCARDIOGRAM REPORT ECHO CHARGES Date: CLINICAL DIAGNOSIS: ECHOCARDIOGRAPHIC MEASUREMENTS (adult normal given) AC root (d.<3.7cm) cm LV Septum d (<1.2 cm> cm Valve Excursion cm LV Septum (systole) cm Left Atria (s.<4.0cm> cm LVPW d(<1.2cm) cm RV (d.<2.3cm) cm LVPW (sytole) cm LV diastole(<5.6CM) cm MV E-F(>70mm/sec) cm LV systole cm LVOT Diameter cm MV exc.(>10mm) cm Est.ejection fraction (50-75%) % DOPPLER: LVIT cm/sec A cm/sec E cm/sec LA cm/sec RVSP mmHg LVOT cm/sec AOP1/2T m/s Asc. Ao cm/sec RVOT cm/sec RA cm/sec PA cm/sec AV Gradient Peak mmHg AV Mean mmHg AV Area cm MV Gradient Peak mmHg MV Mean mmHg MV Area cm COMMENTS: Tool Crib Manager: Framer: ANETA# Pericardial Effusion DATE OF SERVICE: 09/03/2019 PROCEDURE: Echocardiogram. FINDINGS: 1. Left ventricular chamber size is within normal limits. Left ventricular systolic function is normal. Overall ejection fraction estimated at 55%. 2. Left atrium is enlarged at 4.0 cm. Right atrium and right ventricle chamber sizes are as well mildly dilated. 3. Valvular structures have normal structure and motion. ECHOCARDIOGRAM REPORT [id number] TORI MATTSON 4. Doppler interrogation reveals only trace tricuspid regurgitation, no other valvular insufficiency or stenosis. Pulmonary systolic pressure is estimated at 22 mmHg. 5. No evidence of pericardial effusion or left ventricular thrombus. TRANSINT:[id number] Voice Confirmation ID: [id number] DOCUMENT ID: [id number] ANUPAMA JOHNSON MD CC: [id number] DICTATION DATE: 09/04/19 1205 CLAIM EXAMINER: 09/04/19 1617 [facility] [address] [place] [address]
--- NOTE | ~2019-09-03 | HEMODYNAMI ---
PATIENT:TORI MATTSON MEDICAL RECORD: [id number] : 72 LOCATION:[place] ADMISSION DATE: 09/03/19 Generatedon:09/05/20197:43 Patient name: TORI MATTSON Patient #: [id number] SSN: [id number] : 1970 Date of study: 09/04/2019 Page: Of Hemodynamic Procedure Report Patient Data Patient Demographics Procedure consent was obtained First Name: TORI Gender: Male Last Name: SRINIVASAN : 1970 [facility] Initial: SIMRAN MOLINA Age: 49 year(s) Patient #: [id number] Race: SSN: [id number] Additional ID: [id number] Contact details [address]: [address] [place] [address] State: [place] City: [place] Zip code: [address] Past Medical History History of disease Date Diagnosis Comments CAD Previous AZ->ST elevation AZ Allergies Allergen Reaction Date Comments Reported Other allergy 08/20/2019 TRAMADOL, VANCOMYCIN, TIZANIDINE Other allergy 09/04/2019 tramadol, vancomycin, tizanidine Admission Admission Data Admission Date: 09/03/2019 Admission Time: 4:39 Arrival Date: 09/04/2019 Arrival Time: 0:00 Admit Source: Other Insurance Payor: Medicare Room #: D.CL04 [facility] #: [id number] Height (in.): 73 BSA: 2.33 (m2) Height (cm.): 185.42 BMI: 31.73 (kg/m2) Weight (lbs.): 240.5 Weight (kg.): 109.09 Lab Results Lab Result Date: 09/04/2019 Lab Result Time: 0:00 Biochemistry Name Units Result Min Max BUN mg/dl 7 --(*---)-- 7 18 CK-MB ng/ml 5.1 --(----)-* 0 3.6 Creatinine mg/dl 0.8 --(-*--)-- 0.6 1.3 eGFR ml/min 90 --(*---)-- 90 120 NONAFRICAN Troponin l ng/ml 0.017 --(-*--)-- 0 0.06 CBC Name Units Result Min Max Hematocrit % 40.3 -*(----)-- 42 54 Hemoglobin g/dl 13.4 -*(----)-- 13.5 17.5 Procedure Procedure Types Cath Procedure Diagnostic Procedure FFR/IVUS FFR Initial FFR Additional Sedation Charges Moderate Sedation up to 30 minutes PCI Procedure Coronary Stent Coronary Stent Initial Hemochron ACT Test Procedure Description Procedure Date Procedure Date: 09/04/2019 Procedure Start Time: 12:14 Procedure End Time: 12:46 Procedure Staff Name Function Cayetano Arcos RN [employer] Jamey Chavez MD Performing Physician Namrata Mayfield RT Scrub Margie Calderon RN Nurse Nuria Weems RT Monitor Indication Chest pain Procedure Data Cath Procedure Fluoroscopy Diagnostic fluoroscopy Total fluoroscopy Time: 9.9 time: 9.9 min min Diagnostic fluoroscopy Total fluoroscopy dose: 563 dose: 563 mGy mGy Contrast Material Contrast Material Type Amount (ml) Isovue 370 93 Entry Location Entry Primary Successful Side Size Upsize Upsize Entry Closure Succes sful Closure Location (Fr) 1 (Fr) 2 (Fr) Remarks Device Remarks Femoral Left 6 Fr Exoseal artery Short Estimated blood loss: 10 ml Procedure Complications No complications Procedure Medications Medication Administration Route Dosage 0.9% NaCl I.V. 100 ml/hr Oxygen etCO2 Nasal cannula 2 l/min Lidocaine 2% added to field 20 Heparin Flush Bag added to field 2 bags (1000units/500ml NS) Versed I.V. 2 mg Fentanyl I.V. 50 mcg Versed I.V. 2 mg Fentanyl I.V. 50 mcg Heparin Bolus I.V. 4000 units Hemodynamics Rest BSA: 2.33 (m2) HGB: 13.4 (g/dl) O2 Consumption: Estimated: 281.71 (ml/min) O2 Co nsumption indexed: Estimated:120.91 (ml/min/m) Heart Rate: 72 (bpm) Snapshots Pre Cath Intra NCS Post Cath Vital Signs Time Heart Resp SPO2 etCO2 NIBP (mmHg) Rhythm Pain Sedation Rate (ipm) (%) (mmHg) Status Level (bpm) 11:54:13 74 17 97 25.4 107/68(81) NSR 0 (11) 10(A) , No pain 11:58:23 73 15 97 42.6 93/59(76) NSR 0 (11) 10(A) , No pain 12:02:27 75 17 96 38.9 93/56(78) NSR 0 (11) 10(A) , No pain 12:06:29 81 17 98 34 97/64(82) NSR 0 (11) 10(A) , No pain 12:10:26 80 13 98 33 105/81(95) NSR 0 (11) 10(A) , No pain 12:14:30 69 16 97 8.9 113/76(88) NSR 0 (11) 10(A) , No pain 12:18:34 84 17 96 4.4 110/85(100) NSR 0 (11) 10(A) , No pain 12:22:40 76 13 96 20.9 113/72(84) NSR 0 (11) 9(A) , No pain 12:26:47 69 14 97 22.4 105/68(97) NSR 0 (11) 9(A) , No pain 12:30:53 79 12 96 34.4 94/68(82) NSR 0 (11) 9(A) , No pain 12:34:55 77 14 96 36 102/64(89) NSR 0 (11) 9(A) , No pain 12:39:00 76 3 96 17 97/62(85) NSR 0 (11) 10(A) , No pain 12:43:06 67 3 96 29.9 102/59(84) NSR 0 (11) 10(A) , No pain Medications Time Medication Route Dose Verified Delivered Reason Notes Effectiveness by by 11:51:54 0.9% NaCl I.V. 100 Jamey Margie used for ml/hr Scott Calderon warehouse distribution specialist 11:52:00 Oxygen etCO2 2 Jamey Margie used for Nasal l/min Scott Calderon procedure cannula RN 11:52:04 Lidocaine 2% added 20ml Jamey Concepcion used for to vial Scott Chavez MD procedure field 11:52:08 Heparin Flush added 2 Jamey Concepcion used for Bag to bags Scott Chavez MD procedure (1000units/500ml field NS) 12:09:12 Versed I.V. 2 mg Jamey Mragie for sedation Scott Calderon RN 12:09:28 Fentanyl I.V. 50 Jamey Margie for sedation mcg Scott Calderon RN 12:15:01 Versed I.V. 2 mg Jamey Margie for sedation Scott Calderon RN 12:15:06 Fentanyl I.V. 50 Jamey Margie for sedation mcg Scott Calderon RN 12:27:55 Heparin Bolus I.V. 4000 Jamey Margie for verif ied units Scott Calderon anticoagulation with Dr. ROGRE Chavez Procedure Log Time Note 11:46:21 Indication : Chest pain 11:46:41 Cayetano Arcos RN sent for patient. Start room use. 11:46:44 Time tracking: Regular hours (M-F 7:00 - 5:00) 11:46:50 Plan of Care:Hemodynamics will remain stable., Cardiac rhythm will remain stable., Comfort level will be maintained., Respiratory function will remain adequate., Patient/ family verbilizes understanding of procedure., Procedure tolerated without complication., Recovers from procedure without complications.. 11:46:53 Procedure Status Urgent Heart Cath (IP). 11:48:27 Patient received from Med II to CCL 2 Alert and oriented. Tansferred to table in Supine position. 11:48:31 Signed procedure consent form obtained from patient. 11:48:32 Correct patient and procedure confirmed by team. 11:48:32 Warm blankets applied, and ana hugger turned on for patient comfort. 11:50:29 IV patent on arrival in left antecubital with 0.9% NaCl at KVO. 11:50:31 ----Pre-sedation anethsthesia assessment.---- 11:50:35 Previous problem with sedation/anesthesia? No ? 11:50:36 Snore? Yes 11:50:37 Sleep apnea? No 11:50:39 Deviated septum? No 11:50:40 Opens mouth fully? Yes 11:50:42 Sticks out tongue? Yes 11:50:44 Airway obstruction? No ? 11:50:46 Dentures? No ? 11:50:50 Pre procedure: right dorsailis pedis pulse 2+ Normal; easily identifiable; not easily obliterated 11:50:54 Patient pain scale 0/10 ?. 11:51:54 0.9% NaCl 100 ml/hr I.V. was administered by Margie Calderon RN; used for procedure; Verbal order read back and verified. 11:52:00 Oxygen 2 l/min etCO2 Nasal cannula was administered by Margie Calderon RN; used for procedure; Verbal order read back and verified. :52:03 Lab Result : eGFR NONAFRICAN 90 ml/min :: Lab Result : Hemoglobin 13.4 g/dl :: Lab Result : Hematocrit 40.3 % :: Lab Result : Troponin l 0.017 ng/ml :: Lab Result : BUN 7 mg/dl :: Lab Result : Creatinine 0.8 mg/dl :: Lab Result : CK-MB 5.1 ng/ml 11:52:04 Lidocaine 2% 20ml vial added to field was administered by Jamey Chavez MD; used for procedure; Verbal order read back and verified. 11:52:08 Heparin Flush Bag (1000units/500ml NS) 2 bags added to field was administered by Jamey Chavez MD; used for procedure; Verbal order read back and verified. 11:53:13 Vital chart was started 11:54:11 Lab results completed and on chart. 11:54:16 Stress Test: no; N/A ? 11:54:18 Risk of Mortality: .1 11:54:21 Risk of blood transfusion: .2 11:54:23 Risk of JANIYA: .6 11:54:28 Alarms reviewed by R. N. 11:54:28 Left groin area was prepped with chlora-prep and draped in sterile fashion 11:54:29 Sharps counted by scrub and verified by R.N. 11:54:34 ECG and BP/O2 sat monitors applied to patient. 11:54:36 Baseline sample Acquired. 11:54:44 H&P Date Dictated: 09/03/2019 Within 30 days and on chart.. 11:54:46 Pre-op teaching completed and patient verbalized understanding. 11:54:46 Pre-procedure instructions explained to patient. 11:54:51 Family in patients room. 11:54:53 Patient NPO since Midnight. 11:55:23 Patient allergic to Other allergytramadol, vancomycin, tizanidine 11:55:28 Is the patient allergic to Iodine/contrast media? No. 11:55:30 Was the patient premedicated? No 11:55:37 Is patient on blood thinner?Yes 11:55:42 ACC The patient was administered the following blood thiners within the last 24 hours: ACCBrilinta 11:55:46 Patient diabetic? No. 11:55:48 If diabetic: On Metformin? N/A 11:55:53 Baseline sample Acquired. 11:55:56 Rhythm: sinus rhythm 11:55:57 Full Disclosure recording started 11:56:04 Use device set Femoral Dx 11:56:05 ACIST Syringe (09241) opened to sterile field. 11:56:06 Bag Decanter (2002S) opened to sterile field. 11:56:08 ACIST Hand Control (02579) opened to sterile field. 11:56:09 ACIST Manifold (52291) opened to sterile field. 11:56:15 EMERALD Guide Wire (234-790) opened to sterile field. 11:56:18 Medline Cath Pack ([id number]) opened to sterile field. 11:57:15 Arrival Date: 09/04/2019 12:00:00 AM 11:57:16 Admit Source: Other 11:57:23 Patient Height : 73 inches 11:57:27 Patient Weight : 240.5 lbs 11:57:33 Insurance Payor : Medicare 12:05:14 SHEATH 6FR Aurora (ZNQ558) opened to sterile field. 12:08:02 --------ALL STOP TIME OUT------ 12:08:07 Final Timeout: patient, procedure, and site verified with staff and physician. All members of the team are in agreement. 12:08:12 Sedation plan: IV Moderate Sedation Medication:Versed, Fentanyl 12:08:14 Fire Safety Assessment: A--An alcohol-based skin anteseptic being used preoperatively., C--Open oxygen or nitrous oxide is being used., D--An ESU, laser, or fiber-optic light is being used. 12:09:12 Versed 2 mg I.V. was administered by Margie Calderon RN; for sedation; Verbal order read back and verified. 12::28 Fentanyl 50 mcg I.V. was administered by Margie Calderon RN; for sedation; Verbal order read back and verified. 12:11:11 Left groin site verified by team. 12:11:18 Physical assessment completed. ASA score P 2 - A patient with mild systemic disease as per Jamey Chavez MD. 12:11:21 1) 90+ Normal kidney functon but urine findings or structural abnormalities or genetic trait point to kidney disease. 12:11:24 Maximum allowable contrast dose (3.7 X eGFR X 0.75)250 ml. 12:14:21 Procedure started. 12:14:26 Local anesthetic to left femerol artery with Lidocaine 2% by Jamey Chavez MD.INITIAL ACCESS ONLY 12:15:01 Versed 2 mg I.V. was administered by Margie Calderon RN; for sedation; Verbal order read back and verified. 12:15:02 A 6 Fr Short sheath was inserted into the Left Femoral artery 12:15:06 Fentanyl 50 mcg I.V. was administered by Margie Calderon RN; for sedation; Verbal order read back and verified. 12:15:31 INFLATOR Merit BasixCompak (WT6166) opened to sterile field. 12:15:32 GUIDE 6FR GENNARO 90 catheter ([id number]) opened to sterile field. 12:15:32 CHOICE PT Extra Support 182cm wire ([id number]) opened to sterile field. 12:15:33 UNABLE TO ENGAGE PORTILLO SWITCHING TO A DIFFERENT GUIDE. 12:19:07 Catheter exchanged over wire. 12:19:08 GUIDE 6FR 3DRC catheter ([id number]) opened to sterile field. 12:20:50 6 Fr 3DRC guide catheter was inserted over the wire 12:20:59 CHOICE ES 182 wire advanced. 12:24:03 Wire advanced across lesion. 12:25:00 Locke Verrata Plus pressure wire (31085K) opened to sterile field. 12:25:10 Wire removed. 12:25:50 FFR/IFR wire advanced. 12:27:55 Heparin Bolus 4000 units I.V. was administered by Margie Calderon RN; for anticoagulation; verified with Dr. Chavez Verbal order read back and verified. 12:29:09 Wire removed. 12:29:21 FFR WIRE WOULD NOT CONNECT GETTING NEW WIRE. 12:29:40 FFR/IFR wire advanced. 12:29:41 Wire advanced across lesion. 12:30:16 PORTILLO lesion measured at .82 with IFR 12:31:31 Pre PCI Site: PORTILLO Graft LAD has 75% stenosis. 12:31:46 6 Fr XB 3.5 guide catheter was inserted over the wire 12:32:50 Place stent Inflation Number: 1 A WARNER RX 3.0 x 12 stent ([id number]) was prepped and advanced across the PORTILLO -> Mid LAD . The stent was deployed at 11 [place] for 0:00 (min:sec) . 12:32:53 Inflation number: 2 The stent balloon was then re-inflated across the PORTILLO -> Mid LAD to 11 [place] for 0:00 (min:sec) . 12:34:05 Stent catheter was removed intact over wire. 12:34:06 Wire removed. 12:34:19 GUIDE 6FR XB 3.5 catheter ([id number]) opened to sterile field. 12:35:48 Wire redirected to CIRC. 12:35:53 FFR/IFR wire advanced. 12:35:57 Wire advanced across lesion. 12:35:58 mCirc lesion measured at 0.93 with IFR 12:37:22 Guide catheter removed. 12:37:22 Wire removed. 12:37:35 EXOSEAL 6Fr (EX600) opened to sterile field. 12:38:23 ACT drawn and resulted at 223 seconds. (normal therapeutic range 180-240 seconds). 12:38:50 Sheath removed intact; hemostasis achieved with Exoseal to the Left Femoral artery. 12:38:52 Procedure ended.(Physican Out) 12:39:51 Fluoroscopy time 09.90 minutes. 12:39:54 Fluoroscopy dose: 563 mGy 12:39:54 Flurop Dose total: 563 12:40:00 Dose Area Product 04465 mGy/cm. 12:40:03 Contrast amount:Isovue 370 93ml. 12:40:05 Maximum allowable dose exceeded? No. 12:40:06 Sharps counted by scrub and verified by R.N. 12:41:17 Post-op/insertion site Left Femoral artery dressed using a 4 x 4 and Tegaderm. 12:41:23 Post left femerol artery:stable, soft, clean and dry 12:41:26 Post Procedure Pulses reassessed and unchanged 12:41:29 Post procedure: right dorsailis pedis pulse 2+ Normal; easily identifiable; not easily obliterated. 12:41:32 Post-procedure physical assessment completed. ASA score P 2 - A patient with mild systemic disease as per Jamey Chavez MD. 12:41:35 Post procedure rhythm: unchanged. 12:42:08 Estimated blood loss: 10 ml 12:42:09 Post procedure instruction explained to patient.Patient verbalizes understanding. 12:42:10 Patient needs reinforcement of post procedure teaching. 12:43:44 Procedure type changed to Cath procedure, Diagnostic procedure, FFR/IVUS, FFR Initial, FFR Additional, Sedation Charges, Moderate Sedation up to 30 minutes, PCI procedure, Coronary Stent, Coronary Stent Initial, Hemochron ACT Test 12:46:02 Procedure and supply charges have been captured, reviewed, submitted and are correct. 12:46:07 Procedure Complication : No complications 12:46:10 Vital chart was stopped 12:46:11 [facility] Findings: MVD- PCI performed (see procedure note) 12:46:13 See physician's report for complete and final results. 12:46:13 Operative report dictated upon procedure completion. 12:46:17 Report given to Pre/Post Procedure Room. 12:46:23 Patient transfered to Pre/Post Procedure Room with Stretcher. 12:46:25 Full Disclosure recording stopped 12:46:25 Procedure ended. 12:46:39 ACC-PCI Only Patient was given prescriptions, or instructed by Jamey Chavez MD to start/continue the following medications upon discharge: Brilinta 12:46:41 End room use (Document Last) 12:47:04 End room use (Document Last) 12:47:28 End room use (Document Last) Intervention Summary Intervention Notes Time ActionType Lesion and Equipment Used Action# Pressure Duration Attributes 12:32:50 Place stent PORTILLO -> Mid WARNER RX 3.0 x 1 11 00:00 LAD 12 stent ([id number]) 12:32:53 Reinflate PORTILLO -> Mid WARNER RX 3.0 x 2 11 00:00 stent LAD 12 stent balloon ([id number]) Device Usage Item Name Manufacture Quantity Catalog Number Hospital Part Current Minimal Lot# / Charge Number Stock Stock Serial# Code ACIST Syringe Acist 1 01421 638191 758285 481859 20 (65862) Medical Systems Inc Bag Decanter Microtek 1 2001S 612627 29157 005604 5 (2001S) Medical Inc. ACIST Hand Acist 1 17280 168175 658155 892183 5 Control Medical (96946) Systems Inc ACIST Manifold Acist 1 66820 283079 136739 404777 5 (54105) Medical Systems Inc EMERALD Guide Cardinal 1 502-455 672653 641327 435058 5 Wire (502455) Health Medline Cath Medline 1 [id number] 069338 51261 647180 5 Pack ([id number]) SHEATH 6FR Terumo 1 GLR206 838000 664468 478021 40 Aurora (ALD069) GUIDE 6FR GENNARO Medtronic 1 [id number] 024116 64342 540663 1 90 catheter (GP8IQIS) GUIDE 6FR 3DRC Medtronic 1 [id number] 788695 010725 099814 1 catheter ([id number]) Locke Locke 1 52865W 793124 584345168 636847 5 Verrata Plus pressure wire (94129X) WARNER RX 3.0 x Medtronic 1 [id number] 495504 5042044 447204 5 [id number] 12 stent ([id number]) GUIDE 6FR XB Cardinal 1 [id number] 367593 038345 217777 2 3.5 catheter Health ([id number]) EXOSEAL 6Fr Cardinal 1 EX600 381022 114171 353787 10 (EX600) Health INFLATOR Merit Merit 1 NE9369 379844 250749 718331 15 Indi-e PublishinginTUUN HEALTH (YZ1903) CHOICE PT [place] 1 [id number] 801011 378466 413137 5 Extra Support Scientific 182cm wire ([id number]) Signature Audit [place] Stage Time Signature Unsigned Intra-Procedure 09/04/2019 Nuria Weems 12:47:04 PM RT(R) Intra-Procedure 09/04/2019 Margie Calderon 12:47:28 PM RN Intra-Procedure 09/04/2019 Jamey Calderon RN 12:47:51 PM 09/05/2019 7:39:15 AM Intra-Procedure 09/05/2019 Margie Calderon 7:42:52 AM RN Intra-Procedure 09/05/2019 Jamey Chavez 7:43:21 AM MD Signatures Performing Physician : Signature : Jamey Chavez MD Date : Time : Nurse : Margie Calderon RN Signature : Date : Time : Monitor : Nuria Weems Signature : RT Date : Time : [facility] [address] [place] [address]
--- NOTE | ~2019-09-03 | OP ---
PATIENT NAME: TORI MATTSON MEDICAL RECORD: [id number] :72 LOCATION:[facility] ADMISSION DATE: SURGEON: ANUPAMA JOHNSON MD DATE OF OPERATION: 09/04/2019 PROCEDURES: 1. PTCA stent, PORTILLO. 2. IFR PORTILLO. 3. IFR left circumflex. 4. Selective coronary angiography. INDICATION: Unstable angina and coronary artery disease. DESCRIPTION OF PROCEDURE: After informed consent was obtained and after detailed description of risks, benefits as well as alternative therapies, the patient elected to proceed with angiogram and angioplasty. The left femoral area was prepped and draped in normal sterile fashion. Left femoral artery was cannulated via modified Seldinger technique with placement of 6-Polish sheath. All catheters exchanged through the sheath. FINDINGS: The PORTILLO has 80% stenosis after the previously placed stent, IFR was abnormal. This was addressed with a 3.0 x 12 mm [place]. Result was 0% residual stenosis. There was a questionable stenosis of the left circumflex first obtuse marginal; however, IFR was normal at 0.93, hence no intervention was undertaken. OVERALL IMPRESSION: Successful percutaneous transluminal coronary angioplasty stent of the PORTILLO going from 80% initial stenosis to 0% residual. TRANSINT:[id number] Voice Confirmation ID: [id number] DOCUMENT ID: [id number] ANUPAMA JOHNSON MD CC: [id number] DICTATION DATE: 09/04/19 1242 E COMMERCE MANAGER: 09/04/19 1618 [facility] [address] [place] [address]
[~2019-09-03 04:39] MED LIST changes: +ISOSORBIDE DINI10 MG PO
[2019-09-03 05:19] LABS: APTT 25.1 SECONDS (22.8-39.4); INR 0.99 (0.85-1.17); PROTIME 13.1 SECONDS (11.6-15.0)
[2019-09-03 05:20] LABS: BASOPHILS 0.5 % (0-2); EOSINOPHILS 8.7 % (0-7); HEMATOCRIT 40.3 % (42.0-54.0); HEMOGLOBIN 13.4 g/dL (13.5-17.5); IMMATURE GRANULOCYTES 0.7 % (0-5); LYMPHOCYTES 31.3 % (15-50); MCH 33.8 pg (26.0-34.0); MCHC 33.3 g/dL (31.0-37.0); MCV 101.8 fL (80.0-100.0); MEAN PLATELET VOLUME 9.6 fL (7.4-10.4); MONOCYTES 8.1 % (2-11); NEUTROPHILS 50.7 % (40-80); PLATELET COUNT 224 10x3/uL (130-400); RBC 3.96 10x6/uL (4.20-6.10); RDW 13.8 % (11.5-14.5); WBC 8.8 10x3/uL (4.8-10.8)
[2019-09-03 05:28] LABS: CALC OSMOLALITY 274 mosm/kg (275-300); CALCIUM 8.2 mg/dL (8.5-10.1); CARBON DIOXIDE 26.2 mmol/L (21.0-32.0); CHLORIDE - SERUM 101 mmol/L (98-107); CREATININE - SERUM 0.8 mg/dL (0.6-1.3); GLUCOSE 114 mg/dL (74-106); SODIUM 138 mmol/L (136-145); UREA NITROGEN 7 mg/dL (7-18); eGFR NON AFRICAN AMERICAN > 90 mL/min (90-120)
[2019-09-03 05:32] LABS: ALBUMIN 3.6 g/dL (3.4-5.0); ALKALINE PHOSPHATASE 66 U/L (46-116); ALT (SGPT) 75 U/L (10-68); AMYLASE - SERUM 30 U/L (25-115); BILIRUBIN - TOTAL 0.18 mg/dL (0.2-1.3); CKMB 5.5 U/L (0.0-3.6); CREATINE KINASE 527 UL (21-232); LIPASE 115 U/L (73-393); MAGNESIUM - SERUM 1.9 mg/dL (1.8-2.4); PROTEIN - SERUM 7.5 g/dL (6.4-8.2); TROPONIN-I < 0.017 ng/mL (0.000-0.060)
--- NOTE | 2019-09-03 07:30 | NUR ---
ARRIVE TO ROOM VIA WHEELCHAIR. AMBULATES TO BED. GAIT STEADY. AT BEDSIDE. CONTINUE PLAN OF CARE AND ADMISSION PROCESS. REFUSE SCDs.
[2019-09-03] MEDS ORDERED: SEROQUEL400 MG PO (07:34)
[2019-09-03] MEDS ORDERED: LIPITOR10 MG PO (07:35)
[2019-09-03 09:18] VITALS: BP 130/64
[2019-09-03 10:25] VITALS: BP 130/64; Ht 185.4 cm; Wt 109.1 kg
[2019-09-03 10:57] LABS: CKMB 4.1 U/L (0.0-3.6); CREATINE KINASE 401 UL (21-232); TROPONIN-I < 0.017 ng/mL (0.000-0.060)
[2019-09-03 12:12] VITALS: BP 123/75
--- NOTE | 2019-09-03 12:45 | NUR ---
ALERT AND ORIENTED X4. SITTING UP IN BED. CONSENTS FOR MACHINE COMPOSITOR SIGNED ON CHART. PASS OFF REPORT TO DEBBIE BURGER TO RESUME PLAN OF CARE.
[2019-09-03 16:19] VITALS: BP 113/71
--- NOTE | 2019-09-03 16:47 | NUR ---
WITHOUT CHANGES OR DISTRESS NOTED AT THIS TIME. DENIES NEEDS
[2019-09-03 16:52] LABS: CKMB 4.5 U/L (0.0-3.6); CREATINE KINASE 380 UL (21-232)
[2019-09-03 16:53] LABS: TROPONIN-I < 0.017 ng/mL (0.000-0.060)
--- NOTE | 2019-09-03 19:32 | NUR ---
RECEIVED BEDSIDE REPORT. PATIENT IS ALERT AND ORIENTED, RESTING COMFORTABLY IN BED. RESPIRATIONS ARE EVEN AND UNLABORED. NO S/S OF DISTRESS. NO C/O PAIN. CALL LIGHT WITHIN REACH. WILL CPOC.
[2019-09-03 20:30] VITALS: BP 121/71
[2019-09-03 22:46] LABS: CKMB 5.1 U/L (0.0-3.6); CREATINE KINASE 353 UL (21-232); TROPONIN-I < 0.017 ng/mL (0.000-0.060)
[2019-09-04 04:30] VITALS: BP 102/67
--- NOTE | 2019-09-04 07:10 | NUR ---
REPORT RECEIVED FROM LAPIDARIST AND PATIENT CARE ASSUMED.PATIENT LAYING IN BED ON BACK AWAKE, ALERT AND ORIENTED X 4. PATIENT DENIES ANY NEEDS OR PAIN. PATIENT IS NPO AWAITING HEART CATH. WILL CONTINUE WITH PLAN OF CARE. SR UP X 2 BED IN LOW POSITION AND CALL LIGHT IN REACH.
[2019-09-04 07:46] VITALS: BP 73/34
[2019-09-04 08:49] VITALS: BP 94/60
[2019-09-04 11:45] VITALS: BP 103/62
--- NOTE | 2019-09-04 12:42 | HP ---
PATIENT: TORI YAÑEZ MEDICAL RECORD: [id number] ACCOUNT: [id number] LOCATION:[address] : 72 ADMISSION DATE: 09/03/19 PCP: KAN GUPTA MD HISTORY AND PHYSICAL EXAMINATION DATE OF SERVICE: 09/03/2019. DIAGNOSES: 1. Unstable angina. 2. Coronary artery disease. 3. Status post multivessel percutaneous transluminal coronary angioplasty stent. 4. Status post coronary bypass graft surgery. 5. Hypertension. 6. Hyperlipidemia. 7. Smoking. HISTORY OF PRESENT ILLNESS: Mr. Yañez presents with increasing anginal symptomatology. He underwent PTCA stent of a non-grafted LAD diagonal on 08/20/2019. This improved his angina. Looking at the film, he has disease of the circumflex, obtuse marginal. It is not grafted as well as disease in the PORTILLO proximal to previously placed stents. He continues to have class IV anginal symptomatology. PHYSICAL EXAMINATION: CONSTITUTIONAL/GENERAL APPEARANCE: Well nourished, well developed, appears stated age. EYES: Lids and conjunctivae noninjected. No discharge. No pallor. ENT: Lips within normal limit. No cyanosis. No pallor. NECK: Carotid arteries, bilateral normal upstroke. No bruits. No thrills. No jugular venous pressure or distention. CERVICAL LYMPH NODES: Nontender. Nonenlarged. THYROID: Not enlarged. No nodules. CARDIOVASCULAR: Precordial exam, nondisplaced. No heaves or pericardial thrills. Rate and rhythm, regular. Heart sounds, normal S1, normal S2. No S3, no gallop, no rub. Systolic murmur, not heard. Diastolic murmur, not heard. RESPIRATORY: Respiratory effort, unlabored. Normal curvature. No thoracic deformity. No chest wall tenderness. Percussion, resonant. Auscultation, clear. No wheezes, no rales, no rhonchi. ABDOMEN: Soft, nondistended, nontender. No abdominal pain, no vomiting and normal appetite. MUSCULOSKELETAL: No joint tenderness, normal gait, normal tone. SKIN: Warm and dry. OVERALL IMPRESSION: Unstable angina. We will proceed with transcatheter revascularization of the obtuse marginal and the PORTILLO. TRANSINT:[id number] Voice Confirmation ID: [id number] DOCUMENT ID: [id number] HISTORY AND PHYSICAL [id number] YAÑEZ,ANUPAMA COOK MD at 1242 CC: [id number] DICTATION DATE: 09/03/19802 TRENCH SHOVEL OPERATOR: 09/03/19 0825 [facility] [address] [place] [id number]
--- NOTE | 2019-09-04 13:00 | NUR ---
PT ARRIVED BY STRETCHER. PLACED ON MONITORS. ASSESSMENT COMPLETED. VSS. CALL LIGHT WITHIN REACH. NO FAMILY AT BEDSIDE AT THIS TIME.
--- NOTE | 2019-09-04 13:15 | NUR ---
LEFT GROIN DRESSING C/D/I. NO S/S OF HEMATOMA NOTED. CALL LIGHT WITHIN REACH. VSS.
--- NOTE | 2019-09-04 13:42 | NUR ---
PT RESTING COMFORTABLY. TOLERATING SIPS OF WATER. DENIES NAUSEA/VOMITING. VSS. LEFT GROIN DRESSING C/D/I. NO S/S OF HEMATOMA. LEFT PEDAL PULSE PALPABLE.
--- NOTE | 2019-09-04 14:15 | NUR ---
PT SET UP WITH SANDWICH TRAY. STILL IN SUPINE POSITION. BED IN REVERSE TRENDELENBERG. PT TOLERATING WELL. LEFT GROIN DRESSING C/D/I. DENIES NAUSEA/PAIN. CALL LIGHT WITHIN REACH. PT ABLE TO FEED SELF.
--- NOTE | 2019-09-04 14:45 | NUR ---
PT RESTING COMFORTABLY. VSS. LEFT GROIN DRESSING C/D/I. NO S/S OF HEMATOMA NOTED. LEFT PEDAL PULSE PALPABLE. DENIES NAUSEA/PAIN. NO NEEDS AT THIS TIME.
--- NOTE | 2019-09-04 15:15 | NUR ---
LEFT GROIN DRESSING C/D/I. NO S/S OF HEMATOMA NOTED. CALL LIGHT WITHIN REACH. VSS. NO NEEDS AT THIS TIME.
--- NOTE | 2019-09-04 15:45 | NUR ---
LEFT GROIN DRESSING C/D/I. NO S/S OF HEMATOMA NOTED. CALL LIGHT WITHIN REACH. VSS. HEAD OF BED INC TO 30 DEGREES. TOLERATED WELL. LEFT PEDAL PULSE PALPABLE.
--- NOTE | 2019-09-04 16:15 | NUR ---
LEFT GROIN DRESSING C/D/I. NO S/S OF HEMATOMA NOTED. PIV D/C'D WITH CATH TIP INTACT. PT INSTRUCTED TO GET UP AND DRESSED. FRIEND AT BEDSIDE TO ASSIST.
--- NOTE | 2019-09-04 16:30 | NUR ---
PT AMBULATED TO RESTROOM. VOIDED WITHOUT DIFFICULTY. DISCUSSED DISCHARGE INSTRUCTIONS WITH PT AND PT'S FAMILY. THEY VOICED UNDERSTANDING.
== END 2019-09-04 16:33 | disposition home or self-care (01) ==
LOC: D.OPS 04:39 → D.M2 04:39 → D.ER 04:39 → D.M2 06:05 → EDSTATUS 06:43 → D.CLR 09-04 12:52 → D.OPS 09-04 16:33
PROVIDERS: Family Medicine; ATTEND Internal Medicine Interventional Cardiology
DX: I25.119 Atherosclerotic heart disease of native coronary artery with unspecified angina pectoris (principal); Z95.5 Presence of coronary angioplasty implant and graft; Z95.1 Presence of aortocoronary bypass graft; I10 Essential (primary) hypertension; E78.5 Hyperlipidemia, unspecified; Z72.0 Tobacco use
CPT/HCPCS: 93571; 93572; C9600

== ENCOUNTER 2019-09-11 13:07 | Emergency (ER) | payer MEDICARE ==
[~2019-09-11] VITALS: Ht 185.4 cm; Wt 111.4 kg
[~2019-09-11 13:07] MED LIST changes: +LIPITOR10 MG PO
[2019-09-11 13:12] VITALS: Ht 185.4 cm; Wt 111.4 kg
[2019-09-11 13:40] LABS: BASOPHILS 0.5 % (0-2); EOSINOPHILS 10.2 % (0-7); HEMATOCRIT 39.4 % (42.0-54.0); HEMOGLOBIN 13.1 g/dL (13.5-17.5); IMMATURE GRANULOCYTES 0.7 % (0-5); LYMPHOCYTES 32.1 % (15-50); MCH 33.9 pg (26.0-34.0); MCHC 33.2 g/dL (31.0-37.0); MCV 102.1 fL (80.0-100.0); MONOCYTES 10.4 % (2-11); NEUTROPHILS 46.1 % (40-80); PLATELET COUNT 225 10x3/uL (130-400); RBC 3.86 10x6/uL (4.20-6.10); RDW 14.3 % (11.5-14.5); WBC 7.4 10x3/uL (4.8-10.8)
[2019-09-11 13:51] LABS: INR 0.96 (0.85-1.17); PROTIME 12.7 SECONDS (11.6-15.0)
[2019-09-11 13:53] LABS: CALC OSMOLALITY 275 mosm/kg (275-300); CARBON DIOXIDE 25.9 mmol/L (21.0-32.0); CHLORIDE - SERUM 104 mmol/L (98-107); CREATININE - SERUM 0.9 mg/dL (0.6-1.3); GLUCOSE 129 mg/dL (74-106); SODIUM 137 mmol/L (136-145); UREA NITROGEN 13 mg/dL (7-18); eGFR NON AFRICAN AMERICAN > 90 mL/min (90-120)
[2019-09-11 14:11] LABS: ALBUMIN 3.4 g/dL (3.4-5.0); ALKALINE PHOSPHATASE 71 U/L (30-120); ALT (SGPT) 49 U/L (10-68); BILIRUBIN - TOTAL 0.23 mg/dL (0.2-1.3); CKMB 5.4 U/L (0.0-3.6); CREATINE KINASE 392 UL (21-232); MAGNESIUM - SERUM 2.2 mg/dL (1.8-2.4); PROTEIN - SERUM 7.4 g/dL (6.4-8.2)
[2019-09-11 14:12] LABS: TROPONIN-I < 0.017 ng/mL (0.000-0.060)
[2019-09-11] MEDS ORDERED: ISOSORBIDE MONO20 MG PO (15:37)
[2019-09-11 15:49] VITALS: BP 116/76
== END 2019-09-11 15:47 | disposition home or self-care (01) ==
LOC: D.ER 13:07
PROVIDERS: Family Medicine
DX: I20.9 Angina pectoris, unspecified (principal); I10 Essential (primary) hypertension; I25.2 Old myocardial infarction; K21.9 Gastro-esophageal reflux disease without esophagitis; Z95.1 Presence of aortocoronary bypass graft; G62.9 Polyneuropathy, unspecified; Z72.0 Tobacco use

== ENCOUNTER 2020-01-06 15:43 | Observation (INO) | payer MEDICARE ==
[~2020-01-06] VITALS: Ht 182.9 cm; Wt 105.5 kg
--- NOTE | ~2020-01-06 | HEMODYNAMI ---
PATIENT:TORI MATTSON MEDICAL RECORD: [id number] : 72 LOCATION:[facility] D.2119 ADMISSION DATE: 01/06/20 Generatedon:01/07/202011:30 Patient name: TORI MATTSON Patient #: [id number] SSN: [id number] : 1970 Date of study: 01/07/2020 Page: Of Hemodynamic Procedure Report Patient Data Patient Demographics Procedure consent was obtained First Name: TORI Gender: Male Last Name: SRINIVASAN : 1970 [facility] Initial: SIMRAN TRACY Age: 49 year(s) Patient #: [id number] Race: SSN: [id number] Additional ID: [id number] Contact details [address]: [address] [place] [address] State: [place] City: [place] Zip code: [address] Past Medical History History of disease Date Diagnosis Comments CAD Previous AK->ST elevation AK Allergies Allergen Reaction Date Comments Reported Other allergy 08/20/2019 TRAMADOL, VANCOMYCIN, TIZANIDINE Other allergy 09/04/2019 tramadol, vancomycin, tizanidine Other allergy 01/07/2020 TRAMADOL, VANCOMYACIN, TIZANIDINE Admission Admission Data Admission Date: 01/06/2020 Admission Time: 18:22 Arrival Date: 01/07/2020 Arrival Time: 0:00 Admit Source: Other Insurance Payor: Medicare Room #: D.2119 [facility] #: [id number] Height (in.): 72 BSA: 2.27 (m2) Height (cm.): 182.88 BMI: 31.53 (kg/m2) Weight (lbs.): 232.48 Weight (kg.): 105.45 Lab Results Lab Result Date: 01/07/2020 Lab Result Time: 0:00 Biochemistry Name Units Result Min Max BUN mg/dl 13 --(--*-)-- 7 18 CK-MB ng/ml 2 --(--*-)-- 0 3.6 Creatinine mg/dl 0.9 --(-*--)-- 0.6 1.3 eGFR ml/min 90 --(*---)-- 90 120 NONAFRICAN Troponin l ng/ml 0.017 --(-*--)-- 0 0.06 CBC Name Units Result Min Max Hematocrit % 43.4 --(*---)-- 42 54 Hemoglobin g/dl 14.3 --(*---)-- 13.5 17.5 Procedure Procedure Types Cath Procedure Diagnostic Procedure LHC LHC w/Coronaries w/Grafts Sedation Charges Moderate Sedation up to 15 minutes Procedure Description Procedure Date Procedure Date: 01/07/2020 Procedure Start Time: 11:11 Procedure End Time: 11:28 Procedure Staff Name Function Inocencio Cloud MD Performing Physician Nuria Weems RT Monitor Keisha Mazariegos RT Scrub Cayetano Arcos RN Nurse Procedure Data Cath Procedure Fluoroscopy Diagnostic fluoroscopy Total fluoroscopy Time: 2.1 time: 2.1 min min Diagnostic fluoroscopy Total fluoroscopy dose: 276 dose: 276 mGy mGy Contrast Material Contrast Material Type Amount (ml) Isovue 370 55 Entry Location Entry Primary Successful Side Size Upsize Upsize Entry Closure Succes sful Closure Location (Fr) 1 (Fr) 2 (Fr) Remarks Device Remarks Femoral Right 5 Fr Exoseal artery Estimated blood loss: 5 ml Diagnostic catheters Device Type Used For End Catheter Placement MULTIPACK JL 4.0 5Fr Procedure catheter MULTIPACK 3DRC 5Fr Procedure catheter MULTIPACK Pigtail 5 Fr Procedure catheter Procedure Complications No complications Procedure Medications Medication Administration Route Dosage Oxygen etCO2 Nasal cannula 2 l/min Lidocaine 2% added to field 20 Heparin Flush Bag added to field 2 bags (1000units/500ml NS) 0.9% NaCl I.V. 100 ml/hr Versed I.V. 2 mg Fentanyl I.V. 50 mcg Versed I.V. 1 mg Fentanyl I.V. 50 mcg Adenosine (mcg) I.V. 6 mg Adenosine (mcg) 12 mg Hemodynamics Rest BSA: 2.27 (m2) HGB: 14.3 (g/dl) O2 Consumption: Estimated: 282.78 (ml/min) O2 Co nsumption indexed: Estimated:124.57 (ml/min/m) Heart Rate: 82 (bpm) Pressure Samples Time Site Value (mmHg) Purpose Heart Use Rate(bpm) 11:19 LV 86/9,15 Snapshot 93 Gradients Valve Time Site Site Mean SEP/DFP Peak To Heart Use 1 2 (mmHg) (sec/min) Peak Rate (mmHg) (bpm) Aortic 11:19 LV AO 111 Snapshots Pre Cath Intra NCS Post Cath Vital Signs Time Heart Resp SPO2 etCO2 NIBP (mmHg) Rhythm Pain Sedation Rate (ipm) (%) (mmHg) Status Level (bpm) 11:03:16 83 13 98 28.3 122/94(107) NSR 0 (11) 10(A) , No pain 11:07:28 85 11 92 46.2 124/90(109) NSR 0 (11) 10(A) , No pain 11:11:38 80 13 94 42.5 111/83(100) NSR 0 (11) 10(A) , No pain 11:15:50 76 19 92 41 117/79(102) NSR 0 (11) 9(A) , No pain 11:20:02 137 18 92 38.8 106/80(104) NSR 0 (11) 9(A) , No pain 11:24:10 94 25 94 32.8 105/84(91) NSR 0 (11) 10(A) , No pain Medications Time Medication Route Dose Verified Delivered Reason Notes Effectiveness by by 11:02:21 Oxygen etCO2 2 Inocencio Monteiro used for Nasal l/min [facility] Placido Arcos RN procedure cannula 11:02:28 Lidocaine 2% added 20ml Inocencio Painter for local to vial [facility] anesthetic field MD URENA 11:02:34 Heparin Flush added 2 Inocencio Inocencio used for Bag to bags [facility] procedure (1000units/500ml field MD URENA NS) 11:02:43 0.9% NaCl I.V. 100 Inocencio Monteiro Per ml/hr St Placido Arocs RN physician 11:06:05 Versed I.V. 2 mg Inocencio Kodyie for [facility] Placido Arcos RN sedation 11:06:11 Fentanyl I.V. 50 Inocencio Kodyie for mcg [facility] Placido Arcos RN sedation 11:12:30 Versed I.V. 1 mg Inocencio Gatesie for [facility] Placido Arcos RN sedation 11:12:34 Fentanyl I.V. 50 Inocencio [place] for mcg [facility] Placido Arcos RN sedation 11:21:11 Adenosine (mcg) I.V. 6 mg Inocencio Monteiro for Pt in St Placido Arcos RN arrhythmia SVT, remained after cough. 11:23:41 Adenosine (mcg) 12 mg Inocencio Motneiro Pt cont [facility] Placido Arcos RN in SVT MD after first adenosine dose. Procedure Log Time Note 10:18:39 Procedure type changed to Cath procedure, Diagnostic procedure, LHC, LHC w/Coronaries w/Grafts, Sedation Charges, Moderate Sedation up to 15 minutes 10:18:42 Diagnostic Cath Status : Elective 10:19:06 Time tracking: Regular hours (M-F 7:00 - 5:00) 10:19:10 Plan of Care:Hemodynamics will remain stable., Cardiac rhythm will remain stable., Comfort level will be maintained., Respiratory function will remain adequate., Patient/ family verbilizes understanding of procedure., Procedure tolerated without complication., Recovers from procedure without complications.. 10:28:05 Arrival Date: 01/07/2020 12:00:00 AM 10:28:05 Admit Source: Other 10:28:11 Insurance Payor : Medicare 10:28:32 Patient Height : 72 inches 10:28:37 Patient Weight : 232.48 lbs 10:29:26 Lab Result : BUN 13 mg/dl 10:29:26 Lab Result : Troponin l 0.017 ng/ml 10:29:26 Lab Result : eGFR NONAFRICAN 90 ml/min 10:29:26 Lab Result : Hemoglobin 14.3 g/dl 10:29:26 Lab Result : Creatinine 0.9 mg/dl 10:29:26 Lab Result : CK-MB 2 ng/ml 10:29:26 Lab Result : Hematocrit 43.4 % 10:32:12 Informed consent obtained and on chart 10:32:19 ACC Patient presents with Unstable Angina CCS Anginal Class 2--Slight limitation of ordinary activity. 10:35:48 Cayetano Arcos RN sent for patient. Start room use. 10:50:05 Patient received from Med II to CCL 1 Alert and oriented. Tansferred to table in Supine position. 10:50:08 Warm blankets applied, and ana hugger turned on for patient comfort. 10:50:09 Correct patient and procedure confirmed by team. 10:50:09 ECG and BP/O2 sat monitors applied to patient. 10:50:25 H&P Date Dictated: 01/06/2020 Within 30 days and on chart.. 10:50:25 Pre-procedure instructions explained to patient. 10:50:26 Pre-op teaching completed and patient verbalized understanding. 10:50:27 Family in patients room. 10:50:29 Patient NPO since Midnight. 10:51:10 Patient allergic to Other allergyTRAMADOL, VANCOMYACIN, TIZANIDINE 11:02:12 Vital chart was started 11:02:21 Oxygen 2 l/min etCO2 Nasal cannula was administered by Cayetano Arcos RN; used for procedure; Verbal order read back and verified. 11:02:28 Lidocaine 2% 20ml vial added to field was administered by Inocencio Cloud MD; for local anesthetic; Verbal order read back and verified. 11:02:34 Heparin Flush Bag (1000units/500ml NS) 2 bags added to field was administered by Inocencio Cloud MD; used for procedure; Verbal order read back and verified. 11:02:37 Full Disclosure recording started 11:02:39 Baseline sample Acquired. 11:02:43 0.9% NaCl 100 ml/hr I.V. was administered by Cayetano Arcos RN; Per physician; Verbal order read back and verified. 11:02:46 Rhythm: sinus rhythm 11:02:49 Is the patient allergic to Iodine/contrast media? No. 11:02:51 Was the patient premedicated? Yes 11:03:03 Is patient on blood thinner?Yes 11:03:06 ACC The patient was administered the following blood thiners within the last 24 hours: ACCBrilinta 11:03:10 Patient diabetic? Yes. 11:03:12 If diabetic: On Metformin? No 11:03:13 ----Pre-sedation anethsthesia assessment.---- 11:03:15 Previous problem with sedation/anesthesia? No ? 11:03:16 Snore? Yes 11:03:18 Sleep apnea? Unknown 11:03:20 Deviated septum? No 11:03:22 Opens mouth fully? Yes 11:03:23 Sticks out tongue? Yes 11:03:32 Airway obstruction? Yes COPD 11:03:36 Dentures? No ? 11:03:39 Pre procedure: right dorsailis pedis pulse 2+ Normal; easily identifiable; not easily obliterated 11:03:41 Patient pain scale 0/10 ?. 11:03:47 IV patent on arrival in left antecubital with 0.9% NaCl at KVO. 11:03:50 Lab results completed and on chart. 11:03:54 Right groin area was prepped with chlora-prep and draped in sterile fashion 11:03:55 Alarms reviewed by R. N. 11:03:56 Sharps counted by scrub and verified by R.N. 11:03:59 Use device set Femoral Dx 11:04:01 ACIST Syringe (85253) opened to sterile field. 11:04:01 Bag Decanter (2002S) opened to sterile field. 11:04:02 Medline Cath Pack ([id number]) opened to sterile field. 11:04:03 ACIST Hand Control (66190) opened to sterile field. 11:04:04 ACIST Manifold (03570) opened to sterile field. 11:04:04 DIAGNOSTIC Multipack 5Fr catheter set (WW5891) opened to sterile field. 11:04:06 SHEATH 5FR [place] (GWK441) opened to sterile field. 11:04:06 EMERALD Guide Wire (032-020) opened to sterile field. 11:04:20 Stress Test: no; N/A ? 11:04:24 --------ALL STOP TIME OUT------ 11:04:24 Final Timeout: patient, procedure, and site verified with staff and physician. All members of the team are in agreement. 11:04:26 Right groin site verified by team. 11:04:30 Fire Safety Assessment: A--An alcohol-based skin anteseptic being used preoperatively., C--Open oxygen or nitrous oxide is being used., D--An ESU, laser, or fiber-optic light is being used. 11:04:33 Physical assessment completed. ASA score P 2 - A patient with mild systemic disease as per Inocencio Cloud MD. 11:04:37 1) 90+ Normal kidney functon but urine findings or structural abnormalities or genetic trait point to kidney disease. 11:04:39 Maximum allowable contrast dose (3.7 X eGFR X 0.75)250 ml. 11:04:43 Sedation plan: IV Moderate Sedation Medication:Versed, Fentanyl 11:06:05 Versed 2 mg I.V. was administered by Cayetano Arcos RN; for sedation; Verbal order read back and verified. 11:06:11 Fentanyl 50 mcg I.V. was administered by Cayetano Arcos RN; for sedation; Verbal order read back and verified. 11:06:53 Zero performed for pressure channel P1 11:11:25 Procedure started. 11:11:30 Local anesthetic to right femoral artery with Lidocaine 2% by Inocencio Cloud MD.INITIAL ACCESS ONLY 11:12:30 Versed 1 mg I.V. was administered by Cayetano Arcos RN; for sedation; Verbal order read back and verified. 11:12:34 Fentanyl 50 mcg I.V. was administered by Cayetano Arcos RN; for sedation; Verbal order read back and verified. 11:14:11 A 5 Fr sheath was inserted into the Right Femoral artery 11:14:14 A MULTIPACK JL 4.0 5Fr catheter was advanced over the wire and used for Procedure. 11:14:20 LCA angiography performed. 11:14:23 Injector settings: Ml/sec: 3, Volume: 6, 11:15:37 Catheter removed. 11:15:42 A MULTIPACK 3DRC 5Fr catheter was advanced over the wire and used for Procedure. 11:16:23 RCA angiography performed. 11:16:27 Injector settings: Ml/sec: 3, Volume: 6, 11:16:47 PORTILLO to LAD angiography performed. 11:17:26 Catheter removed. 11:17:33 A MULTIPACK Pigtail 5 Fr catheter was advanced over the wire and used for Procedure. 11:18:52 LV gram done using ORTIZ 11:19:08 Injector settings: Ml/sec: 5, Volume: 15, 11:19:10 LV hemodynamics recorded. 11:19:20 EF : 30 % 11:21:11 Adenosine (mcg) 6 mg I.V. was administered by Cayetano Arcos RN; for arrhythmia; Pt in SVT, remained after cough. Verbal order read back and verified. 11:23:37 Catheter removed. 11:23:40 EXOSEAL 5Fr (EX500) opened to sterile field. 11:23:41 Adenosine (mcg) 12 mg was administered by Cayetano Arcos RN; ; Pt cont in SVT after first adenosine dose. Verbal order read back and verified. 11:23:57 Sheath removed intact; hemostasis achieved with Exoseal to the Right Femoral artery. 11:24:03 Procedure ended.(Physican Out) 11::24 Fluoroscopy time 02.10 minutes. 11::28 Flurop Dose total: 276 11:: Fluoroscopy dose: 276 mGy 11:24:35 Dose Area Product 61130 mGy/cm. 11:24:40 Contrast amount:Isovue 370 55ml. 11::43 Maximum allowable dose exceeded? No. 11::44 Sharps counted by scrub and verified by R.N. 11:24:48 Post-op/insertion site Right Femoral artery dressed using a 4 x 4 and Tegaderm. 11:24:53 Post right femoral artery:stable, soft, clean and dry 11::54 Post Procedure Pulses reassessed and unchanged 11:24:57 Post procedure: right dorsailis pedis pulse 2+ Normal; easily identifiable; not easily obliterated. 11:25:00 Post-procedure physical assessment completed. ASA score P 2 - A patient with mild systemic disease as per Inocencio lCoud MD. 11:25:07 Post procedure rhythm: unchanged. 11:25:10 Estimated blood loss: 5 ml 11:25:11 Post procedure instruction explained to patient.Patient verbalizes understanding. 11:25:12 Patient needs reinforcement of post procedure teaching. 11::54 Procedure and supply charges have been captured, reviewed, submitted and are correct. 11:26:58 Procedure Complication : No complications 11:27:00 Vital chart was stopped 11:27:05 [facility] Findings: mild to moderate CAD (<70%) 11:27:09 Operative report dictated upon procedure completion. 11:27:09 See physician's report for complete and final results. 11:27:11 Report given to [facility]. 11:27:14 Patient transfered to [facility] with Bed. 11:27:21 ACC-PCI Only Patient was given prescriptions, or instructed by Inocencio Cloud MD to start/continue the following medications upon discharge: Brilinta 11::32 Procedure ended. 11::32 Full Disclosure recording stopped 11::43 End room use (Document Last) 11::53 End room use (Document Last) 11:29:10 End room use (Document Last) Device Usage Item Name Manufacture Quantity Catalog Hospital Part Current Minimal L ot# / Number Charge Number Stock Stock Serial# Code ACIST Acist 1 35004 184473 629010 411508 20 Syringe Medical (66896) Systems Inc Bag Microtek 1 952775 06636 113652 5 Decanter Medical Inc. () Medline Medline 1 [id number] 276359 45886 802112 5 Cath Pack (QROH51449) ACIST Hand Acist 1 93191 108709 612994 718780 5 Control Medical (93690) Systems Inc ACIST Acist 1 37008 161446 968361 239157 5 Manifold Medical (51797) Systems Inc DIAGNOSTIC Cardinal 1 SH0872 955925 69045 545052 30 Multipack Health 5Fr catheter set (GS8037) SHEATH 5FR Terumo 1 DKV073 137586 130395 398864 5 [place] (WWH034) EMERALD Cardinal 1 502455 459955 958459 816989 5 Guide Wire Health (502-221) MULTIPACK Cardinal 1 448758 5 JL 4.0 5Fr Health catheter MULTIPACK Cardinal 1 515351 5 3DRC 5Fr Health catheter MULTIPACK Cardinal 1 598860 5 Pigtail 5 Health Fr catheter EXOSEAL 5Fr Cardinal 1 EX500 173285 873902 484401 10 (EX500) Health Signature Audit [place] Stage Time Signature Unsigned Intra-Procedure 01/07/2020 Nuria Weems 11:28:53 AM RT(R) Intra-Procedure 01/07/2020 Cayetano Acros RN 11:29:10 AM Intra-Procedure 01/07/2020 Inocencio Martinez 11:30:13 AM Placido URENA [place] [address] [place] [id number]
--- NOTE | ~2020-01-06 | OP ---
PATIENT NAME: TORI MATTSON MEDICAL RECORD: [id number] :72 LOCATION:D.M2 D.2119 ADMISSION DATE:01/06/20 SURGEON: TRUONG ALICEA MD DATE OF OPERATION: 01/07/2020 PROCEDURE: Left heart catheterization, selective coronary angiography, right femoral artery approach. CATHETERS: A 5-Upper Sorbian sheath, 5/4 left and right Catalina, 5/4 pig. The procedure was well tolerated. The patient returned to the sher, sheath removed. ExoSeal device placed. FINDINGS: Left ventriculography in 30-degree ORTIZ view shows global hypokinesis, EF is reduced at 30% to 35%. CORONARY ANATOMY: LEFT MAIN: Left main is free of disease. LAD: Fills for a short period of time and is seen filling competitive flow via the PORTILLO. CIRCUMFLEX: Circumflex is a large dominant circumflex with widely patent stents, otherwise free of disease. RIGHT CORONARY: Somewhat of a codominant system, free of disease. LAD: Portillo to the LAD is widely patent. Previously placed stent and this vessel is widely patent. IMPRESSION: Suspect dyspnea. Fatigue symptomatology, may be related to his myopathic process. We will start ARB. Further recommendations based on above. TRANSINT:[id number] Voice Confirmation ID: [id number] DOCUMENT ID: [id number] TRUONG ALICEA MD CC: [id number] DICTATION DATE: 01/07/20 113 DIRECTOR POST: 01/07/202218 DIS IN 01/07/20 [facility] [address] [place] [id number]
[~2020-01-06 15:43] MED LIST changes: +ISOSORBIDE MONO20 MG PO
--- NOTE | 2020-01-06 15:58 | NUR ---
PATIENT TOOK 325MG ASA BUSINESS REPRESENTATIVE AT ED.
[2020-01-06 16:09] LABS: BASOPHILS 0.5 % (0-2); EOSINOPHILS 8.6 % (0-7); HEMATOCRIT 43.2 % (42.0-54.0); HEMOGLOBIN 14.6 g/dL (13.5-17.5); IMMATURE GRANULOCYTES 0.4 % (0-5); LYMPHOCYTES 35.4 % (15-50); MCH 33.9 pg (26.0-34.0); MCHC 33.8 g/dL (31.0-37.0); MCV 100.2 fL (80.0-100.0); MONOCYTES 10.4 % (2-11); NEUTROPHILS 44.7 % (40-80); PLATELET COUNT 199 10x3/uL (130-400); RBC 4.31 10x6/uL (4.20-6.10); RDW 13.1 % (11.5-14.5); WBC 7.9 10x3/uL (4.8-10.8)
[2020-01-06 16:31] LABS: INR 0.95 (0.85-1.17); PROTIME 12.6 SECONDS (11.6-15.0)
[2020-01-06 16:39] LABS: CALC OSMOLALITY 269 mosm/kg (275-300); CALCIUM 8.3 mg/dL (8.5-10.1); CARBON DIOXIDE 26.1 mmol/L (21.0-32.0); CHLORIDE - SERUM 100 mmol/L (98-107); CREATININE - SERUM 0.9 mg/dL (0.6-1.3); GLUCOSE 140 mg/dL (74-106); POTASSIUM - SERUM 3.6 mmol/L (3.5-5.1); SODIUM 134 mmol/L (136-145); UREA NITROGEN 13 mg/dL (7-18); eGFR NON AFRICAN AMERICAN > 90 mL/min (90-120)
[2020-01-06 16:46] LABS: ALBUMIN 3.5 g/dL (3.4-5.0); ALKALINE PHOSPHATASE 89 U/L (30-120); ALT (SGPT) 55 U/L (10-68); BILIRUBIN - TOTAL 0.24 mg/dL (0.2-1.3); CKMB 2.6 U/L (0.0-3.6); CREATINE KINASE 167 UL (21-232); PROTEIN - SERUM 7.4 g/dL (6.4-8.2)
[2020-01-06 16:49] LABS: TROPONIN-I < 0.017 ng/mL (0.000-0.060)
--- NOTE | 2020-01-06 16:58 | NUR ---
PT STATES HE TOOK 325ASA MG AROUND 9AM TODAY.
[2020-01-06 17:07] VITALS: BP 128/81
[2020-01-06 17:20] VITALS: BP 126/84
[2020-01-06 17:29] VITALS: BP 135/92
[2020-01-06 17:48] VITALS: BP 129/87
[2020-01-06 18:13] VITALS: BP 136/89
--- NOTE | 2020-01-06 18:20 | NUR ---
TURKEY SANDWICH TRAY PROVIDED FOR PT PER [facility] ORDER.
[2020-01-06 18:43] VITALS: BP 132/92
[2020-01-06] MEDS ORDERED: PROTONIX20 MG PO (19:12)
[2020-01-06 21:57] VITALS: Ht 182.9 cm; Wt 105.5 kg
[2020-01-06 22:47] LABS: CREATINE KINASE 134 UL (21-232)
[2020-01-06 22:48] LABS: TROPONIN-I < 0.017 ng/mL (0.000-0.060)
[2020-01-07] VITALS: BP 133/88
[2020-01-07 00:29] LABS: UDS - AMPHET NEGATIVE QUAL (NEGATIVE); UDS - BARB POSITIVE QUAL (NEGATIVE); UDS - BENZO NEGATIVE QUAL (NEGATIVE); UDS - COCAINE NEGATIVE QUAL (NEGATIVE); UDS - OPIATE POSITIVE QUAL (NEGATIVE); UDS - PCP NEGATIVE QUAL (NEGATIVE); UDS - THC POSITIVE QUAL (NEGATIVE)
[2020-01-07 04:00] VITALS: BP 122/89
[2020-01-07 06:15] LABS: BASOPHILS 0.3 % (0-2); EOSINOPHILS 7.7 % (0-7); HEMATOCRIT 43.4 % (42.0-54.0); HEMOGLOBIN 14.3 g/dL (13.5-17.5); IMMATURE GRANULOCYTES 0.4 % (0-5); LYMPHOCYTES 35.3 % (15-50); MCH 33.2 pg (26.0-34.0); MCHC 32.9 g/dL (31.0-37.0); MCV 100.7 fL (80.0-100.0); MEAN PLATELET VOLUME 9.4 fL (7.4-10.4); MONOCYTES 10.2 % (2-11); NEUTROPHILS 46.1 % (40-80); PLATELET COUNT 190 10x3/uL (130-400); RBC 4.31 10x6/uL (4.20-6.10); RDW 13.4 % (11.5-14.5); WBC 7.7 10x3/uL (4.8-10.8)
[2020-01-07 06:54] LABS: ALBUMIN 3.3 g/dL (3.4-5.0); ALKALINE PHOSPHATASE 88 U/L (30-120); ALT (SGPT) 52 U/L (10-68); BILIRUBIN - TOTAL 0.13 mg/dL (0.2-1.3); CALC OSMOLALITY 273 mosm/kg (275-300); CALCIUM 8.1 mg/dL (8.5-10.1); CARBON DIOXIDE 25.1 mmol/L (21.0-32.0); CHLORIDE - SERUM 103 mmol/L (98-107); CREATINE KINASE 117 UL (21-232); CREATININE - SERUM 0.9 mg/dL (0.6-1.3); GLUCOSE 101 mg/dL (74-106); MAGNESIUM - SERUM 2.1 mg/dL (1.8-2.4); PROTEIN - SERUM 6.7 g/dL (6.4-8.2); SODIUM 137 mmol/L (136-145); TROPONIN-I < 0.017 ng/mL (0.000-0.060); UREA NITROGEN 13 mg/dL (7-18); eGFR NON AFRICAN AMERICAN > 90 mL/min (90-120)
[2020-01-07 09:25] VITALS: BP 132/89
[2020-01-07 09:30] LABS: CHOL - HDL RATIO 6.4 ratio (2.3-4.9); LDL-HDL RATIO 4.3 ratio (1.5-3.5)
--- NOTE | 2020-01-07 10:47 | NUR ---
PRE-OPS GIVEN. TO MAPPING ENGINEER BY BED.
[2020-01-07 11:14] LABS: CKMB 3.2 U/L (0.0-3.6); CREATINE KINASE 115 UL (21-232); TROPONIN-I < 0.017 ng/mL (0.000-0.060)
--- NOTE | 2020-01-07 11:52 | NUR ---
BACK FROM FSR. VS WNL. RIGHT GROIN STABLE WITHOUT BLEEDING OR HEMATOMA NOTED. WILL MONITOR.
[2020-01-07 13:15] VITALS: BP 112/76
[2020-01-07] MEDS ORDERED: LOSARTAN-HCTZ1 EAC1 PO (14:06)
--- NOTE | 2020-01-07 14:27 | NUR ---
IV AND TELEMETRY DCD. DC PLANS GIVEN. UNDERSTANDING VOICED. RIGHT GROIN STABLE. ESCORTED TO CAR BY W/C.
== END 2020-01-07 14:28 | disposition home or self-care (01) ==
LOC: D.ER 15:43 → D.M2 18:22 → OBSVTIME 18:42 → D.M2 01-07 14:28
PROVIDERS: Family Medicine; Internal Medicine Interventional Cardiology; ADMIT Emergency Medicine; ATTEND Emergency Medicine
DX: I25.110 Atherosclerotic heart disease of native coronary artery with unstable angina pectoris (principal); I10 Essential (primary) hypertension; E78.5 Hyperlipidemia, unspecified; F41.8 Other specified anxiety disorders; F31.9 Bipolar disorder, unspecified; F43.10 Post-traumatic stress disorder, unspecified; B18.2 Chronic viral hepatitis C; G40.909 Epilepsy, unspecified, not intractable, without status epilepticus; F17.203 Nicotine dependence unspecified, with withdrawal; E87.1 Hypo-osmolality and hyponatremia; D75.89 Other specified diseases of blood and blood-forming organs; Z95.1 Presence of aortocoronary bypass graft; K21.9 Gastro-esophageal reflux disease without esophagitis

== ENCOUNTER 2020-03-12 14:22 | Emergency (ER) | payer MEDICARE ==
[~2020-03-12] VITALS: Ht 182.9 cm; Wt 106.8 kg
[~2020-03-12 14:22] MED LIST changes: +LOSARTAN-HCTZ1 EAC1 PO; +PROTONIX20 MG PO
[2020-03-12 14:25] VITALS: BP 122/77; Ht 182.9 cm; Wt 106.8 kg
[2020-03-12 15:33] LABS: BASOPHILS 0.4 % (0-2); EOSINOPHILS 3.6 % (0-7); HEMATOCRIT 39.5 % (42.0-54.0); HEMOGLOBIN 12.9 g/dL (13.5-17.5); IMMATURE GRANULOCYTES 0.2 % (0-5); LYMPHOCYTES 31.5 % (15-50); MCH 33.4 pg (26.0-34.0); MCHC 32.7 g/dL (31.0-37.0); MCV 102.3 fL (80.0-100.0); MEAN PLATELET VOLUME 8.9 fL (7.4-10.4); MONOCYTES 11.2 % (2-11); NEUTROPHILS 53.1 % (40-80); PLATELET COUNT 171 10x3/uL (130-400); RBC 3.86 10x6/uL (4.20-6.10); RDW 13.6 % (11.5-14.5); WBC 8.4 10x3/uL (4.8-10.8)
[2020-03-12 15:44] LABS: CALC OSMOLALITY 273 mosm/kg (275-300); CALCIUM 7.9 mg/dL (8.5-10.1); CARBON DIOXIDE 25.5 mmol/L (21.0-32.0); CHLORIDE - SERUM 104 mmol/L (98-107); CREATININE - SERUM 0.9 mg/dL (0.6-1.3); GLUCOSE 88 mg/dL (74-106); POTASSIUM - SERUM 3.8 mmol/L (3.5-5.1); SODIUM 136 mmol/L (136-145); UREA NITROGEN 21 mg/dL (7-18); eGFR NON AFRICAN AMERICAN > 90 mL/min (90-120)
[2020-03-12 15:51] LABS: APTT 28.4 SECONDS (22.8-39.4); INR 1.1 (0.85-1.17); PROTIME 14.1 SECONDS (11.6-15.0)
[2020-03-12 16:00] LABS: ALBUMIN 3.7 g/dL (3.4-5.0); ALKALINE PHOSPHATASE 91 U/L (30-120); ALT (SGPT) 42 U/L (10-68); BILIRUBIN - TOTAL 0.77 mg/dL (0.2-1.3); CKMB 4.9 U/L (0.0-3.6); CREATINE KINASE 492 UL (21-232); MAGNESIUM - SERUM 2.2 mg/dL (1.8-2.4); PROTEIN - SERUM 7.1 g/dL (6.4-8.2)
[2020-03-12 16:01] LABS: TROPONIN-I < 0.017 ng/mL (0.000-0.060)
[2020-03-12 16:14] LABS: BILIRUBIN NEGATIVE (NEGATIVE); GLUCOSE NEGATIVE (NEGATIVE); KETONE SMALL mg/dL (NEGATIVE); NITRITE NEGATIVE (NEGATIVE); UROBILINOGEN NORMAL (NORMAL)
[2020-03-12 16:24] LABS: UDS - AMPHET POSITIVE QUAL (NEGATIVE); UDS - BARB POSITIVE QUAL (NEGATIVE); UDS - BENZO NEGATIVE QUAL (NEGATIVE); UDS - COCAINE NEGATIVE QUAL (NEGATIVE); UDS - OPIATE NEGATIVE QUAL (NEGATIVE); UDS - PCP NEGATIVE QUAL (NEGATIVE); UDS - THC POSITIVE QUAL (NEGATIVE)
== END 2020-03-12 16:43 | disposition left against medical advice (07) ==
LOC: D.ER 14:22
PROVIDERS: Family Medicine
DX: I47.1 Supraventricular tachycardia (principal); R07.9 Chest pain, unspecified; E83.51 Hypocalcemia; R55 Syncope and collapse; R79.89 Other specified abnormal findings of blood chemistry; I10 Essential (primary) hypertension; Z72.0 Tobacco use

== ENCOUNTER 2020-03-21 17:05 | Observation (INO) | payer MEDICARE ==
[~2020-03-21] VITALS: Ht 182.9 cm; Wt 113.7 kg
[2020-03-21 17:27] LABS: BASOPHILS 0.4 % (0-2); EOSINOPHILS 7.6 % (0-7); HEMATOCRIT 42.7 % (42.0-54.0); IMMATURE GRANULOCYTES 0.3 % (0-5); LYMPHOCYTES 36.2 % (15-50); MCHC 32.8 g/dL (31.0-37.0); MCV 103.6 fL (80.0-100.0); MEAN PLATELET VOLUME 8.9 fL (7.4-10.4); MONOCYTES 9.9 % (2-11); NEUTROPHILS 45.6 % (40-80); PLATELET COUNT 185 10x3/uL (130-400); RBC 4.12 10x6/uL (4.20-6.10); RDW 13.4 % (11.5-14.5); WBC 7.4 10x3/uL (4.8-10.8)
[2020-03-21 17:37] LABS: APTT 27.7 SECONDS (22.8-39.4); INR 1.03 (0.85-1.17); PROTIME 13.5 SECONDS (11.6-15.0)
[2020-03-21 17:38] LABS: CALC OSMOLALITY 281 mosm/kg (275-300); CALCIUM 7.7 mg/dL (8.5-10.1); CARBON DIOXIDE 26.4 mmol/L (21.0-32.0); CHLORIDE - SERUM 106 mmol/L (98-107); GLUCOSE 118 mg/dL (74-106); POTASSIUM - SERUM 3.5 mmol/L (3.5-5.1); SODIUM 142 mmol/L (136-145); UREA NITROGEN 7 mg/dL (7-18); eGFR NON AFRICAN AMERICAN 85 mL/min (90-120)
[2020-03-21 17:39] LABS: D-DIMER-QUANTITATIVE < 0.27 ug/mLFEU (0.20-0.54)
[2020-03-21 17:51] VITALS: BP 159/113
[2020-03-21 17:54] LABS: ALBUMIN 3.3 g/dL (3.4-5.0); ALKALINE PHOSPHATASE 88 U/L (30-120); ALT (SGPT) 38 U/L (10-68); BILIRUBIN - TOTAL 0.12 mg/dL (0.2-1.3); CKMB 2.1 U/L (0.0-3.6); CREATINE KINASE 129 UL (21-232); MAGNESIUM - SERUM 1.9 mg/dL (1.8-2.4); PROTEIN - SERUM 6.5 g/dL (6.4-8.2)
[2020-03-21 17:58] LABS: TROPONIN-I < 0.017 ng/mL (0.000-0.060)
--- NOTE | 2020-03-21 18:32 | NUR ---
RESTING ON STRETCHER FRIEND TO BEDSIDE, STATES HIS MID CHEST PAIN IS A 7/10 ON PAIN SCALE, VITAL SIGANS STABLE, CALL LIGHT WITHIN
[2020-03-21 18:34] VITALS: BP 140/88
--- NOTE | 2020-03-21 20:33 | NUR ---
REPORT RECEIVED AND INITIAL ROUNDS COMPLETED. PT RESTING WITH NO DISTRESS. CPOC.
--- NOTE | 2020-03-21 21:55 | NUR ---
RECEIVED PT TO ROOM 2118 FROM ER AT 2100. ALERT/ORIENTED AND AMBULATORY. TELEMETRY APPLIED. PIV SALINE LOCKED TO RFA. PT ASKING FOR PAIN MEDS. MEDICATED WITH MORPHINE AND ZOFRAN SIVP AT THIS TIME. ADMISSION HISTORY AND ASSESSMENT COMPLETED. HOME MEDS REVIEWED.
--- NOTE | 2020-03-21 23:17 | NUR ---
PAGE TO DUNG TO REQUEST BEDTIME MEDS THAT PATIENT STATES HE NEEDS.
[2020-03-21] MEDS ORDERED: SEROQUEL400 MG PO (23:34)
[2020-03-22] VITALS: BP 109/59
[2020-03-22 00:15] LABS: CKMB 1.8 U/L (0.0-3.6); CREATINE KINASE 113 UL (21-232)
[2020-03-22 00:19] LABS: TROPONIN-I < 0.017 ng/mL (0.000-0.060)
[2020-03-22 04:00] VITALS: BP 104/59
--- NOTE | 2020-03-22 04:16 | NUR ---
PT AWAKENED X 1 WITH IMMEDIATE REQUESTS FOR FOOD OR PAIN SHOT. INSTRUCTED ON NPO AFTER MIDNIGHT. PT STATES HE IS HURTING "REAL BAD". MEDICATED WITH IV MORPHINE AND ZOFRAN FOR PAIN/NAUSEA. CPOC. CALL LIGHT IN REACH.
[2020-03-22 04:19] VITALS: BP 122/83; BMI 31.9
--- NOTE | 2020-03-22 07:15 | NUR ---
RECEIVED PT IN BED EYES CLOSED RESP UNLABORED SKIN W/D COLOR WNL NAD NOTED
[2020-03-22 07:33] LABS: ALBUMIN 2.9 g/dL (3.4-5.0); ALKALINE PHOSPHATASE 90 U/L (30-120); BILIRUBIN - TOTAL 0.15 mg/dL (0.2-1.3); CALC OSMOLALITY 274 mosm/kg (275-300); CALCIUM 7.5 mg/dL (8.5-10.1); CARBON DIOXIDE 27.1 mmol/L (21.0-32.0); CHLORIDE - SERUM 106 mmol/L (98-107); CKMB 1.9 U/L (0.0-3.6); CREATINE KINASE 97 UL (21-232); CREATININE - SERUM 0.9 mg/dL (0.6-1.3); GLUCOSE 112 mg/dL (74-106); MAGNESIUM - SERUM 1.9 mg/dL (1.8-2.4); POTASSIUM - SERUM 3.5 mmol/L (3.5-5.1); PROTEIN - SERUM 6.2 g/dL (6.4-8.2); SODIUM 138 mmol/L (136-145); TROPONIN-I < 0.017 ng/mL (0.000-0.060); UREA NITROGEN 7 mg/dL (7-18); eGFR NON AFRICAN AMERICAN > 90 mL/min (90-120)
[2020-03-22 07:38] LABS: ALT (SGPT) 81 U/L (10-68)
[2020-03-22 07:51] LABS: BASOPHILS 0.4 % (0-2); EOSINOPHILS 5.5 % (0-7); HEMATOCRIT 39.4 % (42.0-54.0); HEMOGLOBIN 12.6 g/dL (13.5-17.5); IMMATURE GRANULOCYTES 0.3 % (0-5); LYMPHOCYTES 31.8 % (15-50); MCH 33.4 pg (26.0-34.0); MCV 104.5 fL (80.0-100.0); MEAN PLATELET VOLUME 9.3 fL (7.4-10.4); MONOCYTES 10.2 % (2-11); NEUTROPHILS 51.8 % (40-80); PLATELET COUNT 178 10x3/uL (130-400); RBC 3.77 10x6/uL (4.20-6.10); RDW 13.5 % (11.5-14.5); WBC 7.3 10x3/uL (4.8-10.8)
[2020-03-22 11:35] VITALS: BP 96/64
[2020-03-22 13:23] LABS: CREATINE KINASE 96 UL (21-232); TROPONIN-I < 0.017 ng/mL (0.000-0.060)
--- NOTE | 2020-03-22 14:32 | MORECARE ---
CASE MANAGEMENT DISCHARGE SUMMARY PATIENT: TORI YAÑEZ UNIT: [id number] ADM DATE: 03/21/20 AGE: 49 : 72 SEX: M ROOM/BED: D.2119 AUTHOR: JIL DAWSON PHYSICIAN: REFERRING PHYSICIAN: CHARLEE FULTON MD DATE OF SERVICE: 03/22/20 Discharge Plan Patient Name: TORI YAÑEZ [facility] [facility] 1970 Planned Disposition: Home or Self Care Anticipated Discharge Date: 03/22/20 Discharge Date: Expected LOS: 1 Initial Reviewer: [email or web address] Initial Review Date: 03/21/2020 Generated: 03/22/20 3:32 pm Coverage Notice Reviewer: [email or web address] Teodora Steele Notice Issued Date-Time: 03/22/2020 14:23 Notice Type: Medicare Outpatient Observation Notice Notice Delivered To: Patient Relationship to Patient: Self Director Card Name: Tori Yañez Delivery Method: HAND - Hand Delivered Stephany Days: Prior Verbal Notification: Recipient Understood Notice: Yes Recipient Signature: Yes Med Rec Note Co-signed by Attending: Coverage Notice Comment: UGALDE signed/delivered to patient. Original to chart. Patient Name: TORI YAÑEZ Page [phone] at 1432 All edits/amendments must be made on the electronic document DICTATION DATE: 03/22/20 1432 PEDORTHIST: JON 03/22/20 1432 RPT#: [id number] [place] DATE: STATUS: ADM IN [facility] [address] [place] [address] END OF REPORT
[2020-03-22 14:47] VITALS: BP 98/66
[2020-03-22 16:44] VITALS: Ht 182.9 cm; Wt 113.7 kg
--- NOTE | 2020-03-22 19:48 | NUR ---
RECEIVED SOHALIDIE REPORT. PATIENT CURRENTLY TAKING A SHOWER WITH THE ASSISTANCE OF FEMALE VISITOR. NO S/S OF DISTRESS. NO C/O PAIN. CALL LIGHT WITHIN REACH. WILL CPOC.
[2020-03-22 20:00] VITALS: BP 118/82
--- NOTE | 2020-03-22 22:29 | NUR ---
PATIENT RESTING COMFORTABLY IN BED. RESPIRATIONS ARE EVEN AND UNLABORED. NO S/S OF DISTRESS. NO C/O PAIN CALL LIGHT WITHIN REACH. WILL CPOC.
[2020-03-23] VITALS: BP 121/74
[2020-03-23 04:00] VITALS: BP 128/65
[2020-03-23 05:59] LABS: BASOPHILS 0.3 % (0-2); EOSINOPHILS 8.2 % (0-7); HEMATOCRIT 40.4 % (42.0-54.0); HEMOGLOBIN 13.4 g/dL (13.5-17.5); IMMATURE GRANULOCYTES 0.3 % (0-5); LYMPHOCYTES 38.7 % (15-50); MCH 34.5 pg (26.0-34.0); MCHC 33.2 g/dL (31.0-37.0); MCV 104.1 fL (80.0-100.0); MEAN PLATELET VOLUME 9.2 fL (7.4-10.4); MONOCYTES 8.8 % (2-11); NEUTROPHILS 43.7 % (40-80); PLATELET COUNT 170 10x3/uL (130-400); RBC 3.88 10x6/uL (4.20-6.10); RDW 13.5 % (11.5-14.5); WBC 6.3 10x3/uL (4.8-10.8)
[2020-03-23 06:33] LABS: ALBUMIN 2.9 g/dL (3.4-5.0); ALKALINE PHOSPHATASE 102 U/L (30-120); ALT (SGPT) 69 U/L (10-68); BILIRUBIN - TOTAL 0.13 mg/dL (0.2-1.3); CALC OSMOLALITY 283 mosm/kg (275-300); CALCIUM 7.4 mg/dL (8.5-10.1); CARBON DIOXIDE 27.5 mmol/L (21.0-32.0); CHLORIDE - SERUM 105 mmol/L (98-107); GLUCOSE 146 mg/dL (74-106); POTASSIUM - SERUM 3.9 mmol/L (3.5-5.1); PROTEIN - SERUM 6.2 g/dL (6.4-8.2); SODIUM 142 mmol/L (136-145); UREA NITROGEN 6 mg/dL (7-18); eGFR NON AFRICAN AMERICAN 85 mL/min (90-120)
[2020-03-23 07:58] VITALS: BP 129/72
--- NOTE | 2020-03-23 11:00 | NUR ---
SPOKE WITH ERICKA, PATIENT'S SPOUSE. REVIEW WITH SPOUSE DOCTOR NOTES. SPOUSE DOES NOT AGREE WITH POSSIBLE DISCHARGE AND REQUEST DOCTOR TO CALL HER. NOTIFY AND JOSE ROMAN OF SPOUSE REQUEST.
[2020-03-23 11:40] VITALS: BP 119/74
--- NOTE | 2020-03-23 13:14 | NUR ---
HAS PULLED OFF MONITOR AND IS ATTEMPTING TO PULL OU IV HIMSELF. VISITO AR DOOR WITH W/C. REFUSING TO WAIT ON PAPER WORK. I INSISTED ON HELPING DC IV. ESCORTED TO CAR BY W/C WITHOUT DC PAPERWORK.
--- NOTE | 2020-03-23 19:19 | MORECARE ---
CASE MANAGEMENT DISCHARGE SUMMARY PATIENT: TORI YAÑEZ UNIT: [id number] ADM DATE: 03/21/20 AGE: 49 : 72 SEX: M ROOM/BED: D.2119 AUTHOR: JIL DAWSON PHYSICIAN: REFERRING PHYSICIAN: CHARLEE FULTON MD DATE OF SERVICE: 03/23/20 Discharge Plan Patient Name: [facility]ORI YA[facility]Z [facility] [facility] 1970 Planned Disposition: Home or Self Care Anticipated Discharge Date: 03/22/20 Discharge Date: 03/23/2020 Expected LOS: 1 Initial Reviewer: [email or web address] Initial Review Date: 03/21/2020 Generated: 03/23/20 8:18 pm Coverage Notice Reviewer: [email or web address] Teodora Steele Notice Issued Date-Time: 03/22/2020 14:23 Notice Type: Medicare Outpatient Observation Notice Notice Delivered To: Patient Relationship to Patient: Self School Commissioner Name: Tori Yañez Delivery Method: HAND - Hand Delivered Stephany Days: Prior Verbal Notification: Recipient Understood Notice: Yes Recipient Signature: Yes Med Rec Note Co-signed by Attending: Coverage Notice Comment: UGALDE signed/delivered to patient. Original to chart. Last DP export: 03/22/20 1:32 p Patient Name: TORI YAÑEZ Page [phone] at 191 All edits/amendments must be made on the electronic document DICTATION DATE: 03/23/201918 ASSESSMENT COORDINATOR: JON 03/23/201918 RPT#: [id number] DC DATE:03/23/20 STATUS: DIS IN [facility] [address] [place] [address] END OF REPORT
== END 2020-03-23 13:16 | disposition home or self-care (01) ==
LOC: D.ER 17:05 → D.M2 19:53 → OBSVTIME 21:00 → D.M2 03-23 13:16
PROVIDERS: Family Medicine; ADMIT Family Medicine; ATTEND Family Medicine
DX: I25.110 Atherosclerotic heart disease of native coronary artery with unstable angina pectoris (principal); D75.89 Other specified diseases of blood and blood-forming organs; I10 Essential (primary) hypertension; E78.5 Hyperlipidemia, unspecified; F41.9 Anxiety disorder, unspecified; F31.9 Bipolar disorder, unspecified; B18.2 Chronic viral hepatitis C; F43.10 Post-traumatic stress disorder, unspecified; G40.909 Epilepsy, unspecified, not intractable, without status epilepticus; F17.203 Nicotine dependence unspecified, with withdrawal; E87.1 Hypo-osmolality and hyponatremia

== ENCOUNTER 2020-10-27 22:45 | Inpatient (IN) | payer MEDICARE ==
[~2020-10-27] VITALS: Ht 185.4 cm; Wt 112.5 kg
--- NOTE | ~2020-10-27 | HEMODYNAMI ---
PATIENT:TORI MATTSON MEDICAL RECORD: [id number] : 72 LOCATION:[facility] D.2117 ADMISSION DATE: 10/27/20 Generatedon:115:37 Patient name: TORI MATTSON Patient #: [id number] SSN: [id number] : 1970 Date of study: 10/28/2020 Page: Of Hemodynamic Procedure Report Patient Data Patient Demographics Procedure consent was obtained First Name: TORI Gender: Male Last Name: SRINIVASAN : 1970 Middle Initial: SIMRAN MOLINA Age: 50 year(s) Patient #: [id number] Race: SSN: [id number] Additional ID: [id number] Contact details Address: [address] [place] [address] State: [place] City: [place] Zip code: [address] Past Medical History History of disease Date Diagnosis Comments CAD Previous NE->ST elevation NE Allergies Allergen Reaction Date Comments Reported Other allergy 08/20/2019 TRAMADOL, VANCOMYCIN, TIZANIDINE Other allergy 09/04/2019 tramadol, vancomycin, tizanidine Other allergy 01/07/2020 TRAMADOL, VANCOMYACIN, TIZANIDINE Other allergy 10/28/2020 tramasol, vancomycin Admission Admission Data Admission Date: 10/27/2020 Admission Time: 23:59 Room #: D.2117 Lab Results Lab Result Date: 10/28/2020 Lab Result Time: 0:00 Biochemistry Name Units Result Min Max BUN mg/dl 12 --(-*--)-- 7 18 Creatinine mg/dl 0.8 --(-*--)-- 0.6 1.3 eGFR ml/min 90 --(*---)-- 90 120 NONAFRICAN CBC Name Units Result Min Max Hematocrit % 39.8 -*(----)-- 42 54 Hemoglobin g/dl 13.2 -*(----)-- 13.5 17.5 Procedure Procedure Types Cath Procedure Diagnostic Procedure LHC LHC w/Coronaries w/Grafts Procedure Description Procedure Date Procedure Date: 10/28/2020 Procedure Start Time: 15:24 Procedure End Time: 15:36 Procedure Staff Name Function Inocencio Cloud MD Performing Physician Namrata Mayfield RT Monitor Andria Barney RT Scrub Ritesh Gallagher RN Nurse Procedure Data Cath Procedure Fluoroscopy Diagnostic fluoroscopy Total fluoroscopy Time: 1.2 time: 1.2 min min Diagnostic fluoroscopy Total fluoroscopy dose: 344 dose: 344 mGy mGy Contrast Material Contrast Material Type Amount (ml) Isovue 300 53 Entry Location Entry Primary Successful Side Size Upsize Upsize Entry Closure Succes sful Closure Location (Fr) 1 (Fr) 2 (Fr) Remarks Device Remarks Femoral Right 5 Fr Exoseal artery Estimated blood loss: 10 ml Diagnostic catheters Device Type Used For End Catheter Placement MULTIPACK JL 4.0 5Fr Procedure catheter MULTIPACK 3DRC 5Fr Procedure catheter MULTIPACK Pigtail 5 Fr Procedure catheter Procedure Complications No complications Procedure Medications Medication Administration Route Dosage 0.9% NaCl I.V. 100 ml/hr Oxygen etCO2 Nasal cannula 2 l/min Heparin Flush Bag added to field 2 bags (1000units/500ml NS) Lidocaine 2% added to field 20 Versed I.V. 2 mg Fentanyl I.V. 100 mcg Versed I.V. 2 mg Hemodynamics Rest Heart Rate: 96 (bpm) Pressure Samples Time Site Value (mmHg) Purpose Heart Use Rate(bpm) 15:30 LV 86/7,10 Snapshot 96 15:31 AO 93/72(78) Pullback 135 Gradients Valve Time Site Site 2 Mean SEP/DFP Peak To Heart Use 1 (mmHg) (sec/min) Peak Rate (mmHg) (bpm) Aortic 15:31 LV AO 7 19 135 93/72(78) Calculations Valve P-P Mean Valve Index Valve Source Name Gradient Area Flow (cm2) Aortic 7 7 Snapshots Pre Cath Intra NCS Post Cath Vital Signs Time Heart Resp SPO2 etCO2 NIBP (mmHg) Rhythm Pain Sedation Rate (ipm) (%) (mmHg) Status Level (bpm) 15:13:41 82 18 94 45 111/83(106) NSR 0 (11) 10(A) , No pain 15:17:45 73 15 92 39.7 121/75(84) NSR 0 (11) 10(A) , No pain 15:21:54 80 13 94 38.2 107/71(96) NSR 0 (11) 10(A) , No pain 15:26:08 92 14 96 10.5 107/41(97) NSR 0 (11) 10(A) , No pain 15:30:12 90 14 92 0 109/71(106) NSR 0 (11) 10(A) , No pain 15:34:14 92 19 89 0 92/74(88) NSR 0 (11) 10(A) , No pain Medications Time Medication Route Dose Verified Delivered Reason Notes Eff ectiveness by by 15:12:11 0.9% NaCl I.V. 100 Ritesh Ritesh Per ml/hr Aileen Gallagher physician RN RN 15:12:21 Oxygen etCO2 2 Ritesh Ritesh for low 02 Nasal l/min Lorigan Lorigan sats cannula RN RN 15:12:30 Heparin Flush added 2 Ritesh Ritesh used for Bag to bags Lorigan Lorigan procedure (1000units/500ml field RN RN NS) 15:12:40 Lidocaine 2% added 20ml Ritesh Ritesh for local to vial Lorigan Lorigan anesthetic field RN RN 15:24:56 Versed I.V. 2 mg Ritesh Ritesh for Lorigan Lorigan sedation RN RN 15:25:08 Fentanyl I.V. 100 Ritesh Ritesh for mcg Lorigan Lorigan sedation RN RN 15:27:19 Versed I.V. 2 mg Ritesh Ritesh for Lorigan Lorigan sedation RN kinesiology professor Log Time Note 14:46:17 Informed consent obtained and on chart 14:46:31 Ritesh Gallagher RN sent for patient. Start room use. 14:56:03 Procedure Status Urgent Heart Cath (IP). 14:56:04 Time tracking: Regular hours (M-F 7:00 - 5:00) 14:56:08 Plan of Care:Hemodynamics will remain stable., Cardiac rhythm will remain stable., Comfort level will be maintained., Respiratory function will remain adequate., Patient/ family verbilizes understanding of procedure., Procedure tolerated without complication., Recovers from procedure without complications.. 14:57:00 Procedure type changed to Cath procedure, Diagnostic procedure, LHC, LHC w/Coronaries w/Grafts 14:57:39 Lab Result : BUN 12 mg/dl 14:57:39 Lab Result : Hemoglobin 13.2 g/dl 14:57:39 Lab Result : Hematocrit 39.8 % 14:57:39 Lab Result : Creatinine 0.8 mg/dl 14:57:39 Lab Result : eGFR NONAFRICAN 90 ml/min 14:58:33 Patient received from Med II to CCL 2 Alert and oriented. Tansferred to table in Supine position. 14:58:35 Warm blankets applied, and ana hugger turned on for patient comfort. 14:58:35 Correct patient and procedure confirmed by team. 14:58:35 ECG and BP/O2 sat monitors applied to patient. 15:01:28 H&P Date Dictated: 10/27/2020 Within 30 days and on chart., H&P Addendum completed by physician on day of procedure. (MUST COMPLETE FOR ALL OUTPATIENTS). 15:01:30 Pre-procedure instructions explained to patient. 15:01:32 Family in patients room. 15:01:34 Patient NPO since Midnight. 15:02:03 Patient allergic to Other allergytramasol, vancomycin 15:02:07 Is the patient allergic to Iodine/contrast media? No. 15:02:08 Was the patient premedicated? Yes 15:02:09 Is patient on blood thinner?Yes 15:02:13 ACC The patient was administered the following blood thiners within the last 24 hours: ACCBrilinta 15:02:21 Patient diabetic? No. 15:02:25 Snore? Yes 15:02:27 Sleep apnea? No 15:02:39 IV patent on arrival in left hand with 0.9% NaCl at KVO. 15:02:43 Lab results completed and on chart. 15:02:46 Alarms reviewed by R. N. 15:02:46 Sharps counted by scrub and verified by R.N. 15:12:11 0.9% NaCl 100 ml/hr I.V. was administered by Ritesh Gallagher RN; Per physician; Verbal order read back and verified. 15:12:21 Oxygen 2 l/min etCO2 Nasal cannula was administered by Ritesh Gallagher RN; for low 02 sats; Verbal order read back and verified. 15:12:30 Heparin Flush Bag (1000units/500ml NS) 2 bags added to field was administered by Ritesh Gallagher RN; used for procedure; Verbal order read back and verified. 15:12:40 Lidocaine 2% 20ml vial added to field was administered by Ritesh Gallagher RN; for local anesthetic; Verbal order read back and verified. 15::44 Vital chart was started 15:23: Physician arrived 15:: --------ALL STOP TIME OUT------ 15::23 Final Timeout: patient, procedure, and site verified with staff and physician. All members of the team are in agreement. 15:23:24 Right groin site verified by team. 15:23:29 Fire Safety Assessment: A--An alcohol-based skin anteseptic being used preoperatively., C--Open oxygen or nitrous oxide is being used., D--An ESU, laser, or fiber-optic light is being used. 15:23:41 Physical assessment completed. ASA score P 3 - A patient with severe systemic disease as per Inocencio Cloud MD. 15:23:47 1) 90+ Normal kidney functon but urine findings or structural abnormalities or genetic trait point to kidney disease. 15:24:20 Maximum allowable contrast dose (3.7 X eGFR X 0.75)250 ml. 15:24:27 Sedation plan: IV Moderate Sedation Medication:Versed, Fentanyl 15:24:32 Use device set Femoral Dx 15:24:35 Procedure started. 15:24:35 Full Disclosure recording started 15:24:47 Local anesthetic to right femoral artery with Lidocaine 2% by Inocencio Cloud MD.INITIAL ACCESS ONLY 15:24:49 ACIST Syringe (64152) opened to sterile field. 15:24:50 Bag Decanter (2002S) opened to sterile field. 15:24:51 Medline Cath Pack ([id number]) opened to sterile field. 15:24:52 ACIST Hand Control (94789) opened to sterile field. 15:24:52 ACIST Manifold (62941) opened to sterile field. 15:24:53 DIAGNOSTIC Multipack 5Fr catheter set (OQ9977) opened to sterile field. 15:24:55 SHEATH 5FR [place] (XHL269) opened to sterile field. 15:24:55 EMERALD Guide Wire (455-745) opened to sterile field. 15:24:56 Versed 2 mg I.V. was administered by Ritesh Gallagher RN; for sedation; Verbal order read back and verified. 15:25:08 Fentanyl 100 mcg I.V. was administered by Ritesh Gallagher RN; for sedation; Verbal order read back and verified. 15:25:08 A 5 Fr sheath was inserted into the Right Femoral artery 15:25:50 Zero performed for pressure channel P1 15::52 Zero performed for pressure channel P1 15::19 Versed 2 mg I.V. was administered by Ritesh Gallagher RN; for sedation; Verbal order read back and verified. 15:27:34 A MULTIPACK JL 4.0 5Fr catheter was advanced over the wire and used for Procedure. 15:28:06 Catheter removed. 15:28:14 A MULTIPACK 3DRC 5Fr catheter was advanced over the wire and used for Procedure. 15:29:23 PORTILLO to LAD angiography performed. 15:29:40 RCA angiography performed. 15:29:42 Catheter removed. 15:29:49 A MULTIPACK Pigtail 5 Fr catheter was advanced over the wire and used for Procedure. 15:29:55 LV angiography performed. 15:31:34 EF : 30 % 15:31:38 Catheter removed. 15:31:58 Tegaderm 4 x 4 (1626W) opened to sterile field. 15:31:59 EXOSEAL 5Fr (EX500) opened to sterile field. 15:32:20 Sheath removed intact; hemostasis achieved with Exoseal to the Right Femoral artery. 15:32:22 Procedure ended.(Physican Out) 15:32:34 Fluoroscopy time 01.20 minutes. 15:32:38 Fluoroscopy dose: 344 mGy 15:32:38 Flurop Dose total: 344 15:32:43 Dose Area Product 31702 mGy/cm. 15:32:48 Contrast amount:Isovue 300 53ml. 15:33:16 Insertion/operative site no bleeding no hematoma. 15:33:20 Post Procedure Pulses reassessed and unchanged 15:33:24 Post-procedure physical assessment completed. ASA score P 2 - A patient with mild systemic disease as per Inocencio Cloud MD. 15:33:28 Post procedure rhythm: sinus rhythm 15:33:31 Estimated blood loss: 10 ml 15:33:52 Post procedure instruction explained to patient.Patient verbalizes understanding. 15:35:11 Procedure and supply charges have been captured, reviewed, submitted and are correct. 15:35:37 Procedure Complication : No complications 15:35:41 Vital chart was stopped 15:35:50 [facility] Findings: mild to moderate CAD (<70%) 15:36:01 Report given to Pre/Post Procedure Room. 15:36:07 Patient transfered to [facility] with Bed. 15:36:09 Procedure ended. 15:36:09 Full Disclosure recording stopped 15:36:15 End room use (Document Last) 15:37:03 End room use (Document Last) 15:37:33 End room use (Document Last) Device Usage Item Name Manufacture Quantity Catalog Hospital Part Current Minimal L ot# / Number Charge Number Stock Stock Serial# Code ACIST Acist 1 42538 538426 639249 245956 20 Syringe Medical (80680) Systems Inc Bag Microtek 1 785961 38882 874940 5 Decanter Medical Inc. () Medline Medline 1 [id number] 619694 22638 325982 5 Cath Pack ([id number]) ACIST Hand Acist 1 18006 490446 356533 657621 5 Control Medical (16198) Systems Inc ACIST Acist 1 58190 374023 111923 877707 5 Manifold Medical (54040) Systems Inc DIAGNOSTIC Cardinal 1 YD3535 273640 88966 927560 30 Multipack Health 5Fr catheter set (KJ9661) SHEATH 5FR Terumo 1 RBJ060 374668 116014 377983 5 [place] (FOG810) EMERALD Cardinal 1 502-455 131989 282713 588699 5 Guide Wire Health (502-455) MULTIPACK Cardinal 1 175592 5 JL 4.0 5Fr Health catheter MULTIPACK Cardinal 1 076384 5 3DRC 5Fr Health catheter MULTIPACK Cardinal 1 065933 5 Pigtail 5 Health Fr catheter Tegaderm 4 3M 1 1626W 172467 624812 903141 5 x 4 (1626W) EXOSEAL 5Fr Cardinal 1 EX500 976727 069326 604725 10 (EX500) Health Signature Audit [place] Stage Time Signature Unsigned Intra-Procedure 10/28/2020 Namrata Mayfield 3:37:03 PM RT(R) Intra-Procedure 10/28/2020 Ritesh 3:37:33 PM Aileen DURAN Intra-Procedure 10/28/[address] 3:37:54 PM Placido MD Signatures Performing Physician : Signature : Inocencio Cloud MD Date : Time : Monitor : Namrata Chaparro Signature : RT Date : Time : Nurse : Ritesh Lorigan Signature : RN Date : Time : [place] [address] [place] [address]
[~2020-10-27 22:45] MED LIST changes: +ALDACTONE25 MG PO; +DULERA 200 MCG8.8 GM INH; +ENTRESTO 24 MG1 EACH PO; +FLORAJEN3 CAPS460 MG PO; +FLUTICASONE PRO16 GM NASAL; +MUCINEX600 MG PO; +NICODERM CQ1 EAC3 TRANSDERM; +NITROQUICK0.4 MG SL; +OMNICEF300 MG PO; +PREDNISONE10 MG PO; +TESSALON PERLE100 MG PO; +VENTOLIN HFA [SP8 GM INH; +ZPAK PO
[2020-10-27 23:06] LABS: BASOPHILS 0.6 % (0-2); HEMATOCRIT 41.4 % (42.0-54.0); HEMOGLOBIN 13.8 g/dL (13.5-17.5); IMMATURE GRANULOCYTES 0.2 % (0-5); LYMPHOCYTE ABS# 2.05 10x3/uL (1.32-3.57); LYMPHOCYTES 33.2 % (15-50); MCH 34.2 pg (26.0-34.0); MCHC 33.3 g/dL (31.0-37.0); MCV 102.5 fL (80.0-100.0); MEAN PLATELET VOLUME 9.4 fL (7.4-10.4); MONOCYTES 9.2 % (2-11); NEUTROPHIL ABS# 3.13 10x3/uL (1.78-5.38); NEUTROPHILS 50.8 % (40-80); PLATELET COUNT 181 10x3/uL (130-400); RBC 4.04 10x6/uL (4.20-6.10); RDW 13.1 % (11.5-14.5); WBC 6.2 10x3/uL (4.8-10.8)
[2020-10-27 23:17] LABS: CALC OSMOLALITY 281 mosm/kg (275-300); CALCIUM 8.3 mg/dL (8.5-10.1); CARBON DIOXIDE 24.8 mmol/L (21.0-32.0); CHLORIDE - SERUM 105 mmol/L (98-107); POTASSIUM - SERUM 3.6 mmol/L (3.5-5.1); SODIUM 140 mmol/L (136-145); UREA NITROGEN 12 mg/dL (7-18); eGFR NON AFRICAN AMERICAN 84 mL/min (90-120)
[2020-10-27 23:18] LABS: GLUCOSE 159 mg/dL (74-106)
[2020-10-27 23:23] LABS: APTT 26.2 SECONDS (22.8-39.4); INR 1.07 (0.85-1.17); PROTIME 12.9 SECONDS (11.6-15.0)
[2020-10-27 23:34] LABS: ALBUMIN 3.2 g/dL (3.4-5.0); ALKALINE PHOSPHATASE 95 U/L (30-120); ALT (SGPT) 80 U/L (10-68); BILIRUBIN - TOTAL 0.18 mg/dL (0.2-1.3); CKMB 1.1 U/L (0.0-3.6); CREATINE KINASE 111 UL (21-232); MAGNESIUM - SERUM 1.8 mg/dL (1.8-2.4); PROTEIN - SERUM 6.9 g/dL (6.4-8.2)
[2020-10-27 23:38] LABS: TROPONIN-I < 0.017 ng/mL (0.000-0.060)
[2020-10-27 23:42] VITALS: BP 122/84
[2020-10-28 01:20] VITALS: BP 110/75
[2020-10-28] MEDS ORDERED: DEPAKOTE500 MG PO (01:29)
[2020-10-28] MEDS ORDERED: PHENOBARBITAL97.2 MG PO ×2 (01:32→01:33)
[2020-10-28 01:45] VITALS: BP 110/75; BMI 32.7
--- NOTE | 2020-10-28 01:52 | NUR ---
RECIEVED REPORT FROM KATE DURAN IN ER. ARRIVED TO FLOOR IN W/C. ALERT AND ORIENTED X4. UP AD CRYSTAL. ASSESSMENT COMPLETED.
[2020-10-28 04:54] VITALS: BP 103/66
[2020-10-28 05:25] LABS: BASOPHILS 0.6 % (0-2); HEMATOCRIT 39.8 % (42.0-54.0); HEMOGLOBIN 13.2 g/dL (13.5-17.5); IMMATURE GRANULOCYTES 0.2 % (0-5); LYMPHOCYTES 38.2 % (15-50); MCHC 33.2 g/dL (31.0-37.0); MCV 102.6 fL (80.0-100.0); MEAN PLATELET VOLUME 9.5 fL (7.4-10.4); MONOCYTES 10.4 % (2-11); NEUTROPHIL ABS# 2.93 10x3/uL (1.78-5.38); NEUTROPHILS 44.6 % (40-80); PLATELET COUNT 176 10x3/uL (130-400); RBC 3.88 10x6/uL (4.20-6.10); RDW 13.2 % (11.5-14.5); WBC 6.6 10x3/uL (4.8-10.8)
[2020-10-28 06:04] LABS: CALC OSMOLALITY 277 mosm/kg (275-300); CALCIUM 8.1 mg/dL (8.5-10.1); CHLORIDE - SERUM 106 mmol/L (98-107); CKMB 1.2 U/L (0.0-3.6); CREATINE KINASE 94 UL (21-232); CREATININE - SERUM 0.8 mg/dL (0.6-1.3); GLUCOSE 101 mg/dL (74-106); MAGNESIUM - SERUM 2.1 mg/dL (1.8-2.4); PHOSPHOROUS 4.5 mg/dL (2.5-4.9); PRO BNP 296 pg/mL (0-125); SODIUM 139 mmol/L (136-145); TROPONIN-I < 0.017 ng/mL (0.000-0.060); UREA NITROGEN 12 mg/dL (7-18); eGFR NON AFRICAN AMERICAN > 90 mL/min (90-120)
[2020-10-28 06:32] LABS: VALPROIC ACID (DEPAKOTE) < 3.0 ug/mL (50.0-100.0)
[2020-10-28 09:07] LABS: CHOL - HDL RATIO 5.3 ratio (2.3-4.9); LDL-HDL RATIO 3.5 ratio (1.5-3.5)
[2020-10-28 10:19] VITALS: BP 108/67
[2020-10-28 11:55] VITALS: Ht 185.4 cm; Wt 112.5 kg
[2020-10-28 12:49] VITALS: BP 91/49
--- NOTE | 2020-10-28 14:58 | NUR ---
PRE-OPS GIVEN. TO SKIN THERAPIST BY BED.
--- NOTE | 2020-10-28 15:59 | NUR ---
BACK FROM SQL SERVER DBA DEVELOPER. VS WNL. RIGHT GROIN STABLE WITHOUT BLEEDING OR HEMATOMA NOTED. WILL MONITOR.
--- NOTE | 2020-10-28 18:07 | NUR ---
BED REST UP. GROIN STABLE,
--- NOTE | 2020-10-28 18:19 | NUR ---
OK TO DCD HOME PER CARDIO. F/U IN 4 WEEKS.
--- NOTE | 2020-11-01 16:00 | CN ---
PATIENT NAME:TORI MATTSON MEDICAL RECORD: [id number] : 72 LOCATION:D. D.2117 ADMIT DATE: 10/28/20 ACCOUNT: [id number] CONSULTING PHYSICIAN: TRUONG ALICEA MD REFERRING PHYSICIAN: JOSE ORTIZ MD DATE OF CONSULTATION: 10/28/2020 HISTORY OF PRESENT ILLNESS: A 50-year-old gentleman well known to our service with history of coronary artery disease, status post intervention, has a history of hypertension, hyperlipidemia, ongoing tobacco use, recently seen in the ER, was started on isosorbide, continues to have chest pain. We are asked to see him concerning his cardiovascular status. PAST MEDICAL HISTORY: Includes; 1. History of hypertension. 2. Coronary artery disease. 3. Cardiomyopathy. 4. Dyslipidemia. ALLERGIES: INCLUDE TRAMADOL, VANCOMYCIN AND ZANAFLEX. MEDICATIONS: Typically include Brilinta 90 b.i.d., atorvastatin 10 every day, isosorbide 15 every day, Entresto 24/26 b.i.d., Aldactone 25 every day, aspirin 81 every day, Seroquel 400 at bedtime, Depakote 1 gram b.i.d., Latuda 80 mg every day, phenobarbital 97.2 in the a.m. and 94.4 in the p.m. SOCIAL HISTORY: Smokes about a pack a day. Does not exercise. No specific diet. REVIEW OF SYSTEMS: The patient reports easy bruising but reports no swollen glands. The patient reports no fever, no night sweats, no significant weight gain, no significant weight loss. No significant exercise tolerance. The patient reports no dry eyes, no irritation, no vision change. Patient reports no difficulty hearing and no ear pain. Patient reports no frequent nose bleeds or nose and sinus problems. Patient reports on arm pain on exertion. No shortness of breath while lying down. No history of heart murmur. Patient reports no cough, no wheezing or coughing up blood. Patient reports no abdominal pain, no vomiting. Normal appetite. No diarrhea and not vomiting blood. No nausea and no constipation. Patient reports no incontinence. No difficulty urinating. No hematuria. No increased frequency. Patient reports no muscle aches. No weakness, no arthralgias, no back pain. No swelling of the extremities. Patient reports no abnormal mole, no jaundice, no rashes. Reports no loss of consciousness. No weakness and no numbness. No seizures, dizziness, or headaches. The patient reports no depression, no sleep disturbance, feeling safe in a relationship and no alcohol abuse. Patient reports on fatigue. Reports no runny nose or sinus pressure. No itching, no hives, and no frequent sneezing. PHYSICAL EXAMINATION: GENERAL: Well-developed, well-nourished, appears stated age. VITAL SIGNS: Blood pressure 130/66, pulse 108 and regular. HEENT: Normocephalic, atraumatic. NECK: No JVD or bruit. HEART: Regular, II/ systolic ejection murmur. LUNGS: Slightly prolonged expiratory phase. CONSULT REPORT [id number] TORI MATTSON ABDOMEN: Soft and nontender. EXTREMITIES: Pulses 2+. No edema. DIAGNOSTIC DATA: EKG shows nonspecific ST-T changes. IMPRESSION: Acute coronary syndrome angiography. Intervention based on the above. TRANSINT:[id number] Voice Confirmation ID: [id number] DOCUMENT ID: [id number] TRUONG ALICEA MD at 1600 CC: [id number] DICTATION DATE: 10/28/20 0843 FAMILY LAW ATTORNEY: 10/28/20 0932 DIS IN 10/28/20 [id number] [place] [address]
--- NOTE | 2020-11-01 16:00 | OP ---
PATIENT NAME: TORI MATTSON MEDICAL RECORD: [id number] :72 LOCATION:D.M2 D.2116 ADMISSION DATE:10/28/20 SURGEON: TRUONG ALICEA MD DATE OF OPERATION: 10/28/2020 PROCEDURE: Left heart catheterization, selective coronary angiography, right femoral artery approach. CATHETERS: A 5-Mongolian sheath, 5/4 left and right [place]. 5/4 pig. The procedure was well tolerated. The patient returned to the sher. Sheath removed. ExoSeal device placed. FINDINGS: Left ventriculography in 30-degree ORTIZ view shows global hypokinesis, reduced EF 30% to 35%. CORONARY ANATOMY: LEFT MAIN: Left main was free of disease. LAD: Fills for a short period of time and is seen via competitive flow. CIRCUMFLEX: Left dominant system. The previously placed ostial circumflex stent is widely patent without evidence of restenosis, stent, thrombosis without progression of disease. RIGHT CORONARY ARTERY: Rudimentary, free of disease. PORTILLO to LAD is widely patent throughout its course without evidence post-anastomotic stenosis. IMPRESSION: Widely patent PORTILLO to LAD, widely patent stent, LV function decreased as described above. TRANSINT:[id number] Voice Confirmation ID: [id number] DOCUMENT ID: [id number] TRUONG ALICEA MD at 1600 CC: [id number] DICTATION DATE: 10/28/20 1547 RECYCLING COLLECTIONS DRIVER: 10/28/20 1842 DIS IN 10/28/20 [facility] [address] [place] [address]
== END 2020-10-28 19:50 | disposition home or self-care (01) | DRG 287 ==
LOC: D.ER 22:45 → D.M2 23:59 → OBSVTIME 23:59 → D.M2 23:59
PROVIDERS: Family Medicine; Internal Medicine Interventional Cardiology; ADMIT Emergency Medicine; ATTEND Emergency Medicine
PROC: B2181ZZ Fluoroscopy of Left Internal Mammary Bypass Graft using Low Osmolar Contrast (ICD-10-PCS; 2020-10-28)
PROC: B2151ZZ Fluoroscopy of Left Heart using Low Osmolar Contrast (ICD-10-PCS; 2020-10-28)
PROC: 4A023N7 Measurement of Cardiac Sampling and Pressure, Left Heart, Percutaneous Approach (ICD-10-PCS; 2020-10-28)
PROC: B2111ZZ Fluoroscopy of Multiple Coronary Arteries using Low Osmolar Contrast (ICD-10-PCS; principal; 2020-10-28 14:46)
DX: I25.10 Atherosclerotic heart disease of native coronary artery without angina pectoris (principal); I24.9 Acute ischemic heart disease, unspecified; F17.203 Nicotine dependence unspecified, with withdrawal; F41.8 Other specified anxiety disorders; I25.5 Ischemic cardiomyopathy; F43.10 Post-traumatic stress disorder, unspecified; F31.9 Bipolar disorder, unspecified; Z79.01 Long term (current) use of anticoagulants; E78.5 Hyperlipidemia, unspecified

== ENCOUNTER 2020-10-27 22:45 | Outpatient (CLI) | payer MEDICARE ==
[2020-10-28] MEDS ORDERED: DEPAKOTE500 MG PO (01:29)
[2020-10-28] MEDS ORDERED: PHENOBARBITAL97.2 MG PO ×2 (01:32→01:33)
[2020-10-28 11:55] VITALS: BMI 32.7
== END 2020-10-28 15:34 | disposition other institution (70) ==
LOC: D.OPS 22:45
PROVIDERS: ATTEND Emergency Medicine
DX: R07.9 Chest pain, unspecified (principal); Z95.5 Presence of coronary angioplasty implant and graft; E78.5 Hyperlipidemia, unspecified; F31.9 Bipolar disorder, unspecified; F17.203 Nicotine dependence unspecified, with withdrawal; F32.9 Major depressive disorder, single episode, unspecified; F43.10 Post-traumatic stress disorder, unspecified; I25.5 Ischemic cardiomyopathy

== ENCOUNTER 2020-12-11 18:45 | Inpatient (IN) | payer MEDICARE ==
[~2020-12-11] VITALS: Ht 182.9 cm; Wt 109.1 kg
[2020-12-11 19:16] LABS: BASOPHILS 0.2 % (0-2); EOSINOPHILS 13.8 % (0-7); HEMATOCRIT 45.3 % (42.0-54.0); HEMOGLOBIN 15.3 g/dL (13.5-17.5); IMMATURE GRANULOCYTES 0.4 % (0-5); LYMPHOCYTES 34.1 % (15-50); MCHC 33.8 g/dL (31.0-37.0); MCV 100.7 fL (80.0-100.0); MEAN PLATELET VOLUME 9.9 fL (7.4-10.4); MONOCYTES 9.7 % (2-11); NEUTROPHILS 41.8 % (40-80); PLATELET COUNT 202 10x3/uL (130-400); RDW 13.1 % (11.5-14.5); WBC 9.1 10x3/uL (4.8-10.8)
[2020-12-11 19:24] LABS: CALC OSMOLALITY 270 mosm/kg (275-300); CALCIUM 8.7 mg/dL (8.5-10.1); CARBON DIOXIDE 25.4 mmol/L (21.0-32.0); CHLORIDE - SERUM 101 mmol/L (98-107); CREATININE - SERUM 0.8 mg/dL (0.6-1.3); GLUCOSE 139 mg/dL (74-106); POTASSIUM - SERUM 5.5 mmol/L (3.5-5.1); SODIUM 135 mmol/L (136-145); UREA NITROGEN 11 mg/dL (7-18); eGFR NON AFRICAN AMERICAN > 90 mL/min (90-120)
[2020-12-11 19:26] LABS: APTT 26.4 SECONDS (22.8-39.4); INR 1.05 (0.85-1.17); PROTIME 12.6 SECONDS (11.6-15.0)
[2020-12-11 19:41] LABS: ALBUMIN 3.5 g/dL (3.4-5.0); ALKALINE PHOSPHATASE 99 U/L (30-120); ALT (SGPT) 157 U/L (10-68); BILIRUBIN - TOTAL 0.38 mg/dL (0.2-1.3); CKMB 2.8 U/L (0.0-3.6); CREATINE KINASE 235 UL (21-232); PROTEIN - SERUM 7.9 g/dL (6.4-8.2); TROPONIN-I < 0.017 ng/mL (0.000-0.060)
[2020-12-11 19:48] LABS: THYROID STIMULATING HORMONE 2.08 uIU/mL (0.36-3.74)
[2020-12-11 20:00] VITALS: BP 104/76
[2020-12-11 20:32] LABS: BILIRUBIN NEGATIVE (NEGATIVE); KETONE NEGATIVE (NEGATIVE); NITRITE NEGATIVE (NEGATIVE); UROBILINOGEN NORMAL mg/dL (< 2)
[2020-12-11 20:41] LABS: UDS - AMPHET NEGATIVE QUAL (NEGATIVE); UDS - BARB POSITIVE QUAL (NEGATIVE); UDS - BENZO NEGATIVE QUAL (NEGATIVE); UDS - COCAINE NEGATIVE QUAL (NEGATIVE); UDS - OPIATE NEGATIVE QUAL (NEGATIVE); UDS - PCP NEGATIVE QUAL (NEGATIVE); UDS - THC POSITIVE QUAL (NEGATIVE)
[2020-12-11] MEDS ORDERED: BAYER ASPIRIN325 MG PO (23:07)
--- NOTE | 2020-12-11 23:29 | NUR ---
RECEIVED FROM ER, A&OX4, PLACED ON TELEMTRY, DENIES ANY NEEDS AT THIS TIME, BED IS LOW, SRX2, CALL LIGHT IN REACH, WILL CONTINUE PLAN OF CARE
[2020-12-12 02:06] LABS: CKMB 2.4 U/L (0.0-3.6); CREATINE KINASE 142 UL (21-232); TROPONIN-I < 0.017 ng/mL (0.000-0.060)
[2020-12-12 05:56] VITALS: Ht 182.9 cm; Wt 109.1 kg
[2020-12-12 06:03] LABS: BASOPHILS 0.4 % (0-2); EOSINOPHILS 14.4 % (0-7); HEMATOCRIT 42.9 % (42.0-54.0); HEMOGLOBIN 14.2 g/dL (13.5-17.5); IMMATURE GRANULOCYTES 0.5 % (0-5); LYMPHOCYTE ABS# 2.58 10x3/uL (1.32-3.57); LYMPHOCYTES 30.9 % (15-50); MCH 33.8 pg (26.0-34.0); MCHC 33.1 g/dL (31.0-37.0); MCV 102.1 fL (80.0-100.0); MEAN PLATELET VOLUME 10.1 fL (7.4-10.4); MONOCYTES 9.1 % (2-11); NEUTROPHIL ABS# 3.74 10x3/uL (1.78-5.38); NEUTROPHILS 44.7 % (40-80); PLATELET COUNT 191 10x3/uL (130-400); RDW 13.2 % (11.5-14.5); WBC 8.4 10x3/uL (4.8-10.8)
[2020-12-12 06:50] LABS: CKMB 2.8 U/L (0.0-3.6); CREATINE KINASE 137 UL (21-232); TROPONIN-I < 0.017 ng/mL (0.000-0.060)
--- NOTE | 2020-12-12 07:00 | NUR ---
RECEIVED REPORT. ASSUMED CARE OF PATIENT. CALL LIGHT WITHIN REACH. PATIENT RESTING WITH EYES CLOSED, RESP EVEN AND UNLABORED. BEDSIDE SHIFT REPORT COMPLETE, WHITE BOARD UPDATED. NO DISTRESS.
[2020-12-12 07:32] LABS: CALC OSMOLALITY 279 mosm/kg (275-300); CALCIUM 8.8 mg/dL (8.5-10.1); CARBON DIOXIDE 28.1 mmol/L (21.0-32.0); CHLORIDE - SERUM 103 mmol/L (98-107); CREATININE - SERUM 0.9 mg/dL (0.6-1.3); GLUCOSE 116 mg/dL (74-106); MAGNESIUM - SERUM 2.1 mg/dL (1.8-2.4); SODIUM 140 mmol/L (136-145); UREA NITROGEN 13 mg/dL (7-18); eGFR NON AFRICAN AMERICAN > 90 mL/min (90-120)
[2020-12-12 08:27] VITALS: BP 123/81
--- NOTE | 2020-12-12 10:49 | NUR ---
NEW ORDERS RECIEVED PER .
--- NOTE | 2020-12-12 11:30 | NUR ---
PATIENT ORDERED PIZZA FROM OUTSIDE SOURCE AND HAD DELIVERED TO HOSPITAL. NO DISTRESS.
[2020-12-12 12:10] VITALS: BP 120/84
[2020-12-12 12:11] LABS: CREATINE KINASE 159 UL (21-232)
[2020-12-12 12:15] LABS: TROPONIN-I < 0.017 ng/mL (0.000-0.060)
--- NOTE | 2020-12-12 12:43 | NUR ---
MEDICATED FOR PAIN AND NAUSEA AT THIS TIME. NO DISTRESS.
--- NOTE | 2020-12-12 13:53 | CN ---
PATIENT NAME:TORI MATTSON MEDICAL RECORD: [id number] : 72 LOCATION:D. D.2125 ADMIT DATE: 12/11/20 ACCOUNT: [id number] CONSULTING PHYSICIAN: TANG RIOS MD REFERRING PHYSICIAN: CHARLEE FULTON MD DATE OF CONSULTATION: 12/12/2020 HISTORY OF PRESENT ILLNESS: The patient is a 50-year-old male with multiple medical problems including atherosclerotic heart disease, history of PCI/stents, history of coronary artery bypass grafting, hypertension, tobacco use, hyperlipidemia, moderate obesity, who presented with complaints of chest pain symptoms. The patient denies exertional component to his symptoms. EKG and cardiac enzymes unremarkable. I am asked to evaluate from a cardiovascular standpoint. PAST MEDICAL HISTORY: Significant for, 1. Atherosclerotic heart disease. 2. History of PCI/stents. 3. History of coronary artery bypass grafting. 4. Angina pectoris. 5. Hypertension. 6. Hyperlipidemia. 7. Ischemic cardiomyopathy. 8. Congestive heart failure -- compensated. 9. Tobacco usage. 10. Moderate obesity. MEDICATIONS: 1. Isordil 5 mg b.i.d. 2. Entresto 24/26 mg b.i.d. 3. Spironolactone 25 mg daily. 4. Brilinta 90 mg b.i.d. 5. Latuda 80 mg daily. 6. Aspirin 81 mg a day. 7. Seroquel 400 mg bedtime. 8. Lipitor 10 mg daily. 9. Protonix 20 mg daily. 10. Depakote 1000 mg b.i.d. 11. Phenobarbital 194.4 mg daily. PHYSICAL EXAMINATION: GENERAL: Middle-aged moderately obese white male in no apparent distress. VITAL SIGNS: Blood pressure 120s/80s, pulse around 100 (regular). HEENT: Sclerae are clear, symmetrical conjunctivae pink. NECK: Supple. No appreciated JVD/carotid. HEART: Regular rhythm and rate. A II/ systolic murmur. Chest significant well-healed midsternal scar. LUNGS: Clear bilaterally. ABDOMEN: Benign. EXTREMITIES: Negative for edema. NEUROLOGIC: Nonfocal. LABORATORY DATA: Sodium 140, potassium 4.0, BUN 13, and creatinine 0.9. White blood cell count 8.4, hemoglobin and hematocrit 14.2 and 42.9, and platelet count 191. Troponin 0.017 (negative). Toxicology positive for barbiturates and CONSULT REPORT [id number] TORI MATTSON THC. EKG normal sinus rhythm, 86 beats per minute, no acute ST-T wave changes. ASSESSMENT AND PLAN: 1. Atherosclerotic heart disease. 2. History of coronary artery bypass grafting. 3. Ischemic cardiomyopathy. 4. History of congestive heart failure. 5. History of PCI/stents. 6. Angina pectoris -- stable. 7. Hypertension. 8. Hyperlipidemia. 9. Congestive heart failure -- compensated. 10. Tobacco usage. 11. Mild obesity. PLAN: Continue current medical management at this time with addition of Imdur 30 mg p.o. daily. The patient also will be scheduled for echocardiogram to assess LV function and valvular status. Further recommendations clinically indicated. Thank you for allowing me to participate in the care of this patient. TRANSINT:[id number] Voice Confirmation ID: [id number] DOCUMENT ID: [id number] TANG RIOS MD at 1353 CC: [id number] DICTATION DATE: 12/12/20 1051 SCALE ATTENDANT: 12/12/20 1103 ADM IN [facility] [address] [place] [address]
--- NOTE | 2020-12-12 15:02 | NUR ---
SCDs REFUSED, PATIENT FREQUENTLY OOB. EDUCATION PROVIDED THAT REFUSAL OF SCDs POTENTIATES THE OCCURENCE OF DEVELOPING A BLOOD CLOT. PT VERBALIZED UNDERSTANDING OF EDUCATION PROVIDED.
[2020-12-12 16:06] VITALS: BP 114/79
--- NOTE | 2020-12-12 18:25 | NUR ---
FRIEND OF PATIENT BY THE NAME OF TAJ CALLED, INFORMED HER THIS CIGAR SORTER IS UNABLE TO SHARE ANY INFORMATION ABOUT THE PATIENT SHE IS NOT LISTED ON CONTACTS AND SHE COULD NOT PROVIDE THE SPECIAL CODE FOR THIS CIGAR SORTER. INFORMED HER THIS CIGAR SORTER WOULD LEAVE A NOTE ON THE PATIENTS TABLE ASKING HIM TO CALL HER. TAJ STATES HE HAS BEEN LIVING WITH HER FOR A WHILE NOW AND SHE WAS JUST CHECKING ON HIM.
[2020-12-12 22:24] VITALS: BP 91/43
--- NOTE | 2020-12-12 23:23 | NUR ---
INITIAL ROUNDS COMPLETED AT 1920 HRS. CHOCOLATE PUDDINGX2 GIVEN PER REQUEST. NO DISTRESS NOTED. ASSESSMENT COMPLETED AT [address] PER CM HR 125. ALERT AND ORIENTED TO PERSON, PLACE AND TIME. ESPINO. PALPABLE PERIPHERAL PULSES. IV TO RAC SL. LUNGS DIMINISHED IN BASES BILAT. MORPHINE 2MG, ZOFRAN 4MG GIVEN AT PM MED PASS FOR C/O CP 8/10 AND NAUSEA. PT THEN ASKED FOR MORE CHOCOLATE PUDDING. PIZZA NOTED IN ROOM. PT CURRENTLY WATCHING TV. CALL LIGHT WITHIN REACH.
--- NOTE | 2020-12-13 01:16 | NUR ---
ZOFRAN 4MG, MORPHINE 2MG SIVP GIVEN FOR C/O CP 03/22. NO DISTRESS NOTED. CALL LIGHT WITHIN REACH.
--- NOTE | 2020-12-13 03:46 | NUR ---
NO DISTRESS NOTED. SPRITE AND ICE GIVEN PER REQUEST.
[2020-12-13 05:22] VITALS: BP 86/46
--- NOTE | 2020-12-13 06:27 | NUR ---
VSS THROUGHOUT NIGHT. ST PER CM HR 112 THIS AM. PT VERY DEMANDING ABOUT HAVING CONTINUOUS SNACKS DURING THE NIGHT. WILL CONTINUE TO MONITOR.
--- NOTE | 2020-12-13 07:00 | NUR ---
RECEIVED REPORT. ASSUMED CARE OF PATIENT. CALL LIGHT WITHIN REACH. PATIENT RESTING WITH EYES CLOSED, RESP EVEN AND UNLABORED. WHITE BOARD UPDATED, BEDSIDE SHIFT REPORT COMPLETE. NO DISTRESS.
[2020-12-13 08:07] LABS: CALC OSMOLALITY 270 mosm/kg (275-300); CALCIUM 9.1 mg/dL (8.5-10.1); CARBON DIOXIDE 22.1 mmol/L (21.0-32.0); CHLORIDE - SERUM 99 mmol/L (98-107); CREATININE - SERUM 0.9 mg/dL (0.6-1.3); GLUCOSE 169 mg/dL (74-106); MAGNESIUM - SERUM 2.1 mg/dL (1.8-2.4); POTASSIUM - SERUM 3.6 mmol/L (3.5-5.1); SODIUM 134 mmol/L (136-145); UREA NITROGEN 10 mg/dL (7-18); eGFR NON AFRICAN AMERICAN > 90 mL/min (90-120)
[2020-12-13 08:14] LABS: BASOPHILS 0.4 % (0-2); EOSINOPHILS 13.6 % (0-7); HEMATOCRIT 42.2 % (42.0-54.0); HEMOGLOBIN 14.2 g/dL (13.5-17.5); IMMATURE GRANULOCYTES 0.6 % (0-5); LYMPHOCYTE ABS# 2.74 10x3/uL (1.32-3.57); LYMPHOCYTES 33.3 % (15-50); MCH 33.9 pg (26.0-34.0); MCHC 33.6 g/dL (31.0-37.0); MCV 100.7 fL (80.0-100.0); MONOCYTES 9.9 % (2-11); NEUTROPHIL ABS# 3.47 10x3/uL (1.78-5.38); NEUTROPHILS 42.2 % (40-80); PLATELET COUNT 189 10x3/uL (130-400); RBC 4.19 10x6/uL (4.20-6.10); RDW 13.1 % (11.5-14.5); WBC 8.2 10x3/uL (4.8-10.8)
--- NOTE | 2020-12-13 09:11 | NUR ---
MEDICATED FOR PAIN AT THIS TIME.
[2020-12-13] MEDS ORDERED: ISOSORBIDE MONO30 M1 PO (12:27)
--- NOTE | 2020-12-13 13:39 | NUR ---
TELEMETRY REMOVED AND RETURNED TO ICU MANAGER PLAY 20 GAUGE IV REMOVED FROM RIGHT AC, CATHETER TIP INTACT, NO BLEEDING FROM SITE. 2X2 GAUZE APPLIED AND SECURED WITH BANDAID. DISCHARGE INSTRUCTIONS PROVIDED TO PATIENT. PATIENT VERBALIZED UNDERSTANDING OF ALL INSTRUCTIONS PROVIDED. PT WAITING FOR HIS RIDE TO GET HERE TO TRANSPORT HIM TO HOME.
--- NOTE | 2020-12-13 14:01 | NUR ---
PATIENT LEFT UNIT VIA WHEELCHAIR. PATIENT LEFT UNIT IN STABLE CONDITION WITH ALL PERSONAL BELONGINGS. PATIENT THANKED THIS NURSE FOR ALL CARES RENDERED. NO DISTRESS UPON LEAVING UNIT.
== END 2020-12-13 14:05 | disposition home or self-care (01) | DRG 303 ==
LOC: D.ER 18:45 → OBSVTIME 22:41 → D.M2 22:41
PROVIDERS: Family Medicine; ADMIT Family Medicine; ATTEND Family Medicine
DX: I25.119 Atherosclerotic heart disease of native coronary artery with unspecified angina pectoris (principal); I25.5 Ischemic cardiomyopathy; I11.0 Hypertensive heart disease with heart failure; I50.9 Heart failure, unspecified; Z72.0 Tobacco use; E66.9 Obesity, unspecified; Z95.1 Presence of aortocoronary bypass graft; Z68.31 Body mass index [BMI] 31.0-31.9, adult; G40.909 Epilepsy, unspecified, not intractable, without status epilepticus; F41.8 Other specified anxiety disorders; F31.9 Bipolar disorder, unspecified; D64.9 Anemia, unspecified

== ENCOUNTER 2020-12-28 00:22 | Observation (INO) | payer MEDICARE ==
[~2020-12-28] VITALS: Ht 185.4 cm; Wt 109.1 kg
[~2020-12-28 00:22] MED LIST changes: +BAYER ASPIRIN325 MG PO
[2020-12-28] MEDS ORDERED: MINIPRESS 5 MG C5 MG PO (00:28)
[2020-12-28] MEDS ORDERED: FLOMAX0.4 MG PO (00:28)
[2020-12-28 01:01] LABS: BASOPHILS 1.4 % (0-2); EOSINOPHILS 16.1 % (0-7); HEMOGLOBIN 14.5 g/dL (13.5-17.5); LYMPHOCYTES 34.7 % (15-50); MCH 34.3 pg (26.0-34.0); MCHC 34.5 g/dL (31.0-37.0); MCV 99.3 fL (80.0-100.0); MEAN PLATELET VOLUME 7.5 fL (7.4-10.4); MONOCYTES 8.8 % (2-11); PLATELET COUNT 207 10x3/uL (130-400); RBC 4.23 10x6/uL (4.20-6.10); RDW 13.7 % (11.5-14.5); WBC 10.2 10x3/uL (4.8-10.8)
[2020-12-28 01:09] LABS: APTT 24.8 SECONDS (22.8-39.4); INR 1.06 (0.85-1.17); PROTIME 12.7 SECONDS (11.6-15.0)
[2020-12-28 01:12] LABS: CALC OSMOLALITY 282 mosm/kg (275-300); CALCIUM 8.5 mg/dL (8.5-10.1); CHLORIDE - SERUM 104 mmol/L (98-107); CREATININE - SERUM 0.9 mg/dL (0.6-1.3); GLUCOSE 166 mg/dL (74-106); SODIUM 138 mmol/L (136-145); UREA NITROGEN 22 mg/dL (7-18); eGFR NON AFRICAN AMERICAN > 90 mL/min (90-120)
[2020-12-28 01:26] LABS: ALBUMIN 3.4 g/dL (3.4-5.0); ALKALINE PHOSPHATASE 79 U/L (30-120); ALT (SGPT) 67 U/L (10-68); BILIRUBIN - TOTAL 0.18 mg/dL (0.2-1.3); CKMB 2.7 U/L (0.0-3.6); CREATINE KINASE 157 UL (21-232); MAGNESIUM - SERUM 2.1 mg/dL (1.8-2.4); PROTEIN - SERUM 7.2 g/dL (6.4-8.2)
[2020-12-28 01:29] LABS: TROPONIN-I < 0.017 ng/mL (0.000-0.060)
[2020-12-28 01:30] VITALS: BP 120/75
[2020-12-28 02:30] VITALS: BP 118/71
[2020-12-28 03:21] VITALS: BP 104/71
[2020-12-28 04:12] VITALS: Ht 185.4 cm; Wt 109.1 kg
[2020-12-28] MEDS ORDERED: COREG 3.1253.125 MG PO (13:35)
--- NOTE | 2020-12-28 14:07 | CN ---
PATIENT NAME:TORI MATTSON MEDICAL RECORD: [id number] : 72 LOCATION:D. D.2115 ADMIT DATE: 12/28/20 ACCOUNT: [id number] CONSULTING PHYSICIAN: TRUONG ALICEA MD REFERRING PHYSICIAN: CHAPITO RUIZ MD DATE OF CONSULTATION: 12/28/2020 HISTORY OF PRESENT ILLNESS: A 50-year-old gentleman with a known history of coronary artery disease with status post intervention as well as CABG, has known cardiomyopathy, admitted with symptoms of chest pain, somewhat atypical, but more myopathic in nature with increasing dyspnea on exertion, coughing, almost daron orthopnea, PND. Recently, no dietary indiscretion or medical noncompliance. We are asked to see him concerning his cardiovascular status. PAST MEDICAL HISTORY: Includes; 1. History of hypertension. 2. Hyperlipidemia. 3. Coronary artery disease, most recent intervention back in October with patent grafts as well as stents, but with known myopathy. 4. Gastroesophageal reflux disease. MEDICATIONS: Include Protonix 20 mg p.o. every day, aspirin 325 every day, phenobarbital 97.2 t.i.d., Depakote 1 gram b.i.d., Seroquel 400 at bedtime, clonazepam 0.5 b.i.d. p.r.n., Latuda 80 mg every day, atorvastatin 10 every day, prazosin 5 every day, isosorbide 30 every day, Aldactone 25 every day, Entresto 24/26 b.i.d., Brilinta 90 b.i.d. SOCIAL HISTORY: Smokes about a pack a day, nondrinker. Occasional marijuana use. No set exercise program. ALLERGIES: TRAMADOL, VANCOMYCIN AND ZANAFLEX. REVIEW OF SYSTEMS: The patient reports easy bruising but reports no swollen glands. The patient reports no fever, no night sweats, no significant weight gain, no significant weight loss. No significant exercise tolerance. The patient reports no dry eyes, no irritation, no vision change. Patient reports no difficulty hearing and no ear pain. Patient reports no frequent nose bleeds or nose and sinus problems. Patient reports on arm pain on exertion. No shortness of breath while lying down. No history of heart murmur. Patient reports no cough, no wheezing or coughing up blood. Patient reports no abdominal pain, no vomiting. Normal appetite. No diarrhea and not vomiting blood. No nausea and no constipation. Patient reports no incontinence. No difficulty urinating. No hematuria. No increased frequency. Patient reports no muscle aches. No weakness, no arthralgias, no back pain. No swelling of the extremities. Patient reports no abnormal mole, no jaundice, no rashes. Reports no loss of consciousness. No weakness and no numbness. No seizures, dizziness, or headaches. The patient reports no depression, no sleep disturbance, feeling safe in a relationship and no alcohol abuse. Patient reports on fatigue. Reports no runny nose or sinus pressure. No itching, no hives, and no frequent sneezing. PHYSICAL EXAMINATION: GENERAL: No acute distress, appears stated age. VITAL SIGNS: Blood pressure 104/71, pulse 99 and regular. HEENT: Normocephalic, atraumatic. CONSULT REPORT [id number] TORI MATTSON NECK: No bruits noted. HEART: Regular. S3 gallop. A II/ systolic ejection murmur. LUNGS: Diminished breath sounds at both bases. ABDOMEN: Soft and nontender. EXTREMITIES: Pulses are 2+. There is no edema. DIAGNOSTIC DATA: EKG shows no acute ST-T changes. IMPRESSION AND PLAN: Overall, probably more myopathic symptomatology at this point, particularly in view of recent angiography with patent stents and grafts. We will add low-dose carvedilol, might benefit from Farxiga in the near future. Further recommendations based on clinical course. We will recheck 2D and color flow imaging, echo also. TRANSINT:[id number] Voice Confirmation ID: [id number] DOCUMENT ID: [id number] TRUONG ALICEA MD at 1407 CC: [id number] DICTATION DATE: 12/28/20 0859 PLAY READER: 12/28/20 1134 ADM IN [facility] [address] [place] [address]
--- NOTE | 2020-12-28 17:02 | NUR ---
ALERT AND ORIENTED X4. SITTING UP IN BED. DC RT HAND IV TIP INTACT. DISCHARGE INSTRUCTIONS GIVEN VERBALLY AND WRITTEN. DISCHARGE PAPERS SIGNED ON CHART. WAITING ON RIDE. CONTINUE PLAN OF CARE AND SAFETY PRECAUTIONS.
== END 2020-12-28 17:32 | disposition home or self-care (01) ==
LOC: D.ER 00:22 → D.M2 03:19 → OBSVTIME 03:20 → D.M2 17:32
PROVIDERS: Family Medicine; ADMIT Family Medicine Adult Medicine; ATTEND Family Medicine Adult Medicine
DX: I20.0 Unstable angina (principal); E78.5 Hyperlipidemia, unspecified; R07.9 Chest pain, unspecified; I50.22 Chronic systolic (congestive) heart failure; I11.0 Hypertensive heart disease with heart failure; R73.9 Hyperglycemia, unspecified; F17.203 Nicotine dependence unspecified, with withdrawal; F41.8 Other specified anxiety disorders

== ENCOUNTER 2020-12-31 16:50 | Observation (INO) | payer MEDICARE ==
[~2020-12-31] VITALS: Ht 185.4 cm; Wt 109.1 kg
[~2020-12-31 16:50] MED LIST changes: +COREG 3.1253.125 MG PO; +FLOMAX0.4 MG PO; +MINIPRESS 5 MG C5 MG PO
[2020-12-31 17:15] VITALS: BP 118/80
[2020-12-31 17:15] LABS: BASOPHILS 0.5 % (0-2); EOSINOPHILS 17.6 % (0-7); HEMATOCRIT 41.4 % (42.0-54.0); HEMOGLOBIN 14.1 g/dL (13.5-17.5); LYMPHOCYTES 35.3 % (15-50); MCH 33.9 pg (26.0-34.0); MCHC 34.1 g/dL (31.0-37.0); MCV 99.5 fL (80.0-100.0); MEAN PLATELET VOLUME 8.4 fL (7.4-10.4); MONOCYTES 11.1 % (2-11); NEUTROPHILS 35.5 % (40-80); PLATELET COUNT 221 10x3/uL (130-400); RBC 4.16 10x6/uL (4.20-6.10)
[2020-12-31 17:30] VITALS: BP 127/82
[2020-12-31 17:34] LABS: APTT 24.7 SECONDS (22.8-39.4); CALC OSMOLALITY 279 mosm/kg (275-300); CALCIUM 8.6 mg/dL (8.5-10.1); CARBON DIOXIDE 27.8 mmol/L (21.0-32.0); CHLORIDE - SERUM 103 mmol/L (98-107); CREATININE - SERUM 0.7 mg/dL (0.6-1.3); GLUCOSE 135 mg/dL (74-106); INR 1.05 (0.85-1.17); POTASSIUM - SERUM 4.3 mmol/L (3.5-5.1); PROTIME 12.7 SECONDS (11.6-15.0); SODIUM 138 mmol/L (136-145); UREA NITROGEN 18 mg/dL (7-18); eGFR NON AFRICAN AMERICAN > 90 mL/min (90-120)
[2020-12-31 17:48] LABS: ALBUMIN 3.3 g/dL (3.4-5.0); ALKALINE PHOSPHATASE 74 U/L (30-120); ALT (SGPT) 70 U/L (10-68); BILIRUBIN - TOTAL 0.15 mg/dL (0.2-1.3); CKMB 4.9 U/L (0.0-3.6); CREATINE KINASE 532 UL (21-232); PROTEIN - SERUM 6.9 g/dL (6.4-8.2)
[2020-12-31 17:56] LABS: TROPONIN-I < 0.017 ng/mL (0.000-0.060)
[2020-12-31 18:00] VITALS: BP 123/78
--- NOTE | 2020-12-31 18:15 | NUR ---
PATIENT C/O CHEST PAIN/PRESSURE 10/[address] OSORIO INFORMED. ORDER RECEIVED.
--- NOTE | 2020-12-31 19:55 | NUR ---
REPORT CALLED FROM ER. PT COMING TO ROOM 211.
[2020-12-31 21:07] VITALS: BP 109/74
--- NOTE | 2020-12-31 21:30 | NUR ---
PT ADMITTED TO ROOM 2119 FROM ER AT 1999. ALERT/ORIENTED AND AMBULATORY. UP TO BED ON HIS OWN. TELEMETRY STARTED. SR 89. PT RECIEVED IV MORPHINE WHILE IN ER AND IS SLIGHTLY LETHARGIC. ADMISSION ASSESSMENT AND HISTORY COMPLETED. HOME MEDS UPDATED. FALL PRECAUTIONS IN PLACE DUE TO FALLS AT HOME IN LAST TWO DAYS.
--- NOTE | 2020-12-31 22:30 | NUR ---
ALL BEDTIME MEDS GIVEN. PT RESTING WITH NO DISTRESS. CALL LIGHT IN REACH.
[2020-12-31 23:17] LABS: CKMB 5.3 U/L (0.0-3.6); CREATINE KINASE 441 UL (21-232); TROPONIN-I < 0.017 ng/mL (0.000-0.060)
[2020-12-31 23:32] VITALS: BP 109/74; BMI 31.7
--- NOTE | 2021-01-01 00:01 | NUR ---
DUNG EDGE APN RN ON UNIT SEEING PATIENT.
--- NOTE | 2021-01-01 00:07 | NUR ---
PT RESTING WITH NO DISTRESS. CALL LIGHT IN REACH.
[2021-01-01 00:10] VITALS: BP 101/54
--- NOTE | 2021-01-01 02:43 | NUR ---
AWAKE WITH C/O CHEST PAIN/PRESSURE. MEDICATED WITH MORPHINE 4MG SIVP. CALL LIGHT IN REACH.
[2021-01-01 05:13] VITALS: BP 116/86
[2021-01-01 05:17] LABS: BASOPHILS 0.4 % (0-2); EOSINOPHILS 8.5 % (0-7); HEMATOCRIT 41.3 % (42.0-54.0); HEMOGLOBIN 13.8 g/dL (13.5-17.5); LYMPHOCYTES 27.8 % (15-50); MCH 33.4 pg (26.0-34.0); MCHC 33.3 g/dL (31.0-37.0); MCV 100.1 fL (80.0-100.0); MEAN PLATELET VOLUME 7.8 fL (7.4-10.4); MONOCYTES 9.6 % (2-11); NEUTROPHILS 53.7 % (40-80); PLATELET COUNT 190 10x3/uL (130-400); RBC 4.13 10x6/uL (4.20-6.10); RDW 13.9 % (11.5-14.5); WBC 8.6 10x3/uL (4.8-10.8)
[2021-01-01 05:32] LABS: ALBUMIN 3.4 g/dL (3.4-5.0); ALKALINE PHOSPHATASE 67 U/L (30-120); ALT (SGPT) 71 U/L (10-68); BILIRUBIN - TOTAL 0.27 mg/dL (0.2-1.3); CALC OSMOLALITY 269 mosm/kg (275-300); CALCIUM 8.4 mg/dL (8.5-10.1); CARBON DIOXIDE 28.4 mmol/L (21.0-32.0); CHLORIDE - SERUM 101 mmol/L (98-107); CREATININE - SERUM 0.7 mg/dL (0.6-1.3); POTASSIUM - SERUM 4.2 mmol/L (3.5-5.1); PROTEIN - SERUM 7.2 g/dL (6.4-8.2); SODIUM 135 mmol/L (136-145); UREA NITROGEN 15 mg/dL (7-18); eGFR NON AFRICAN AMERICAN > 90 mL/min (90-120)
[2021-01-01 05:33] LABS: GLUCOSE 84 mg/dL (74-106)
[2021-01-01 06:03] LABS: CKMB 4.6 U/L (0.0-3.6); CREATINE KINASE 385 UL (21-232)
[2021-01-01 06:04] LABS: TROPONIN-I < 0.017 ng/mL (0.000-0.060)
[2021-01-01 07:52] VITALS: BP 114/78
--- NOTE | 2021-01-01 08:26 | NUR ---
AAOX4 UPON ENTERING. ADMINISTERED MEDICATION, NO DIFFICULTIES. ASSESSMENT PERFORMED AT THIS TIME. DENIES ANY NEEDS. BED IN LOWEST POSITION, BED RAILS X2, CALL LIGHT WITHIN REACH. WILL CONTINUE POC.
--- NOTE | 2021-01-01 09:53 | NUR ---
I have reviewed this patient and I concur with the Shift Assessment completed by the Licensed Practical Nurse today this shift.
[2021-01-01 10:41] VITALS: Ht 185.4 cm; Wt 109.1 kg
[2021-01-01 11:11] VITALS: BP 116/72
--- NOTE | 2021-01-01 11:16 | NUR ---
PRN MORPHINE FOR 8/10 PAIN. SITTING UP RIGHT. DENIES FURTHER NEEDS. WILL CONTINUE POC.
--- NOTE | 2021-01-02 18:53 | MORECARE ---
CASE MANAGEMENT DISCHARGE SUMMARY PATIENT: TORI MATTSON TRACY UNIT: [id number] ADM DATE: 12/31/20 AGE: 50 : 72 SEX: M ROOM/BED: D.2119 AUTHOR: EUNICEDOC PHYSICIAN: REFERRING PHYSICIAN: CHAPITO RUIZ MD DATE OF SERVICE: 01/02/21 Case Management Discharge Planning Summary DCP REVIEW SUMMARY ANTICIPATED D/C DATE: EXPECTED LOS : CASE STATUS: DCP Complete INITIAL REVIEW: 12/31/2020 INITIAL REVIEWER: Tran Reddy FINAL DISCHARGE DISPOSITION: : FINAL REVIEWER: FINAL REVIEW DATE: DCP Focus Questions & Answers QUESTION: ANSWER : PATIENT: TORI MATTSON ENCOUNTER: [id number] MEDICAL RECORD#: [id number] ADMISSION DATE: 12/31/2020 DISCHARGE DATE: 01/01/2021 ATTENDING MD: CHAPITO DELGADO : AGE: 50 MARITAL STATUS: M DC PLAN ID: [id number] FACILITY: [facility] PRINTED ON: 01/02/21 18:53 CT All edits/amendments must be made on the electronic document DICTATION DATE: 01/02/211852 YARDER PUNCHER: DM 01/02/211852 RPT#: [id number] DC DATE:01/01/21 STATUS: DIS IN [facility] [address] [place] [address] END OF REPORT
== END 2021-01-01 16:07 | disposition home or self-care (01) ==
LOC: D.ER 16:50 → D.M2 19:21 → OBSVTIME 19:23 → D.M2 01-01 16:07
PROVIDERS: Emergency Medicine; ADMIT Family Medicine Adult Medicine; ATTEND Family Medicine Adult Medicine
DX: R55 Syncope and collapse (principal); I20.9 Angina pectoris, unspecified; R07.9 Chest pain, unspecified; I11.0 Hypertensive heart disease with heart failure; E78.5 Hyperlipidemia, unspecified; I50.22 Chronic systolic (congestive) heart failure; M25.512 Pain in left shoulder; F17.203 Nicotine dependence unspecified, with withdrawal; R74.01 Elevation of levels of liver transaminase levels; M62.82 Rhabdomyolysis; I25.5 Ischemic cardiomyopathy; F31.9 Bipolar disorder, unspecified; F41.8 Other specified anxiety disorders

== ENCOUNTER 2021-02-03 17:45 | Inpatient (IN) | payer MEDICARE ==
[~2021-02-03] VITALS: Ht 185.4 cm; Wt 113.6 kg
[2021-02-03] MEDS ORDERED: ISOSORBIDE DINI10 MG PO (18:16)
[2021-02-03 18:58] LABS: BASOPHILS 0.5 % (0-2); EOSINOPHILS 6.3 % (0-7); HEMOGLOBIN 14.7 g/dL (13.5-17.5); LYMPHOCYTES 31.9 % (15-50); MCH 34.7 pg (26.0-34.0); MCHC 34.3 g/dL (31.0-37.0); MCV 101.2 fL (80.0-100.0); MONOCYTES 9.7 % (2-11); NEUTROPHILS 51.6 % (40-80); PLATELET COUNT 200 10x3/uL (130-400); RBC 4.25 10x6/uL (4.20-6.10); RDW 14.4 % (11.5-14.5); WBC 8.1 10x3/uL (4.8-10.8)
[2021-02-03 19:07] LABS: CALC OSMOLALITY 276 mosm/kg (275-300); CALCIUM 8.7 mg/dL (8.5-10.1); CHLORIDE - SERUM 102 mmol/L (98-107); CREATININE - SERUM 0.9 mg/dL (0.6-1.3); GLUCOSE 113 mg/dL (74-106); POTASSIUM - SERUM 4.2 mmol/L (3.5-5.1); SODIUM 138 mmol/L (136-145); UREA NITROGEN 13 mg/dL (7-18); eGFR NON AFRICAN AMERICAN > 90 mL/min (90-120)
[2021-02-03 19:24] LABS: ALBUMIN 3.8 g/dL (3.4-5.0); ALKALINE PHOSPHATASE 73 U/L (30-120); ALT (SGPT) 133 U/L (10-68); BILIRUBIN - TOTAL 0.27 mg/dL (0.2-1.3); CKMB 3.3 U/L (0.0-3.6); CREATINE KINASE 248 UL (21-232); MAGNESIUM - SERUM 1.9 mg/dL (1.8-2.4); PROTEIN - SERUM 7.7 g/dL (6.4-8.2)
[2021-02-03 19:35] LABS: TROPONIN-I < 0.017 ng/mL (0.000-0.060)
[2021-02-03 22:05] VITALS: BP 108/73
[2021-02-04 01:02] LABS: CKMB 2.9 U/L (0.0-3.6); CREATINE KINASE 250 UL (21-232)
[2021-02-04 01:04] LABS: TROPONIN-I < 0.017 ng/mL (0.000-0.060)
[2021-02-04 05:22] VITALS: BP 114/94
[2021-02-04 05:36] LABS: BASOPHILS 0.4 % (0-2); EOSINOPHILS 5.8 % (0-7); HEMATOCRIT 40.6 % (42.0-54.0); HEMOGLOBIN 14.1 g/dL (13.5-17.5); LYMPHOCYTES 32.2 % (15-50); MCH 34.9 pg (26.0-34.0); MCHC 34.6 g/dL (31.0-37.0); MCV 100.8 fL (80.0-100.0); MEAN PLATELET VOLUME 7.7 fL (7.4-10.4); MONOCYTES 9.5 % (2-11); NEUTROPHILS 52.1 % (40-80); PLATELET COUNT 186 10x3/uL (130-400); RBC 4.03 10x6/uL (4.20-6.10); RDW 14.2 % (11.5-14.5); WBC 8.4 10x3/uL (4.8-10.8)
[2021-02-04 05:45] LABS: ALBUMIN 3.6 g/dL (3.4-5.0); ALKALINE PHOSPHATASE 70 U/L (30-120); ALT (SGPT) 131 U/L (10-68); BILIRUBIN - TOTAL 0.43 mg/dL (0.2-1.3); CALC OSMOLALITY 273 mosm/kg (275-300); CALCIUM 8.3 mg/dL (8.5-10.1); CARBON DIOXIDE 26.7 mmol/L (21.0-32.0); CHLORIDE - SERUM 101 mmol/L (98-107); CKMB 3.1 U/L (0.0-3.6); CREATINE KINASE 244 UL (21-232); CREATININE - SERUM 0.9 mg/dL (0.6-1.3); GLUCOSE 115 mg/dL (74-106); PHOSPHOROUS 4.1 mg/dL (2.5-4.9); PROTEIN - SERUM 7.3 g/dL (6.4-8.2); SODIUM 136 mmol/L (136-145); UREA NITROGEN 14 mg/dL (7-18); eGFR NON AFRICAN AMERICAN > 90 mL/min (90-120)
[2021-02-04 05:52] LABS: TROPONIN-I < 0.017 ng/mL (0.000-0.060); VALPROIC ACID (DEPAKOTE) 0.4 ug/mL (50.0-100.0)
[2021-02-04 06:18] VITALS: Ht 185.4 cm; Wt 113.6 kg
--- NOTE | 2021-02-04 06:30 | NUR ---
BEDSIDE REPORT RECEIVED. PATIENT COMPLAINS OF CHEST PAIN, PRN MORPHINE ADMINISTERED. RESP EVEN AND UNLABORED. IV TO LEFT FOREARM PATENT.
--- NOTE | 2021-02-04 08:31 | NUR ---
PATIENT AWAKE AND ALERT. COMPLAINED OF CHEST PAIN MORPHINE WAS ADMINISTERED. RESP EVEN AND UNLABORED ON ROOM AIR. LUNG SOUNDS CLEAR. HEART SOUNDS REGULAR RATE AND RYTHYM. TELE IN PLACE. BOWEL SOUNDS SLOW BUT ACTIVE. WILL MONITOR STATUS OF CHEST PAIN THROUGHOUT SHIFT.
[2021-02-04 09:25] VITALS: BP 106/72
[2021-02-04 11:26] VITALS: BP 98/50
[2021-02-04 12:24] LABS: CKMB 2.6 U/L (0.0-3.6); CREATINE KINASE 239 UL (21-232)
[2021-02-04 12:32] LABS: TROPONIN-I < 0.017 ng/mL (0.000-0.060)
--- NOTE | 2021-02-04 12:43 | NUR ---
RESTS IN BED WITH CALL LIGHT IN REACH. C/O C/P. GAVINO LEWIS NOTIFIED.
[2021-02-04 17:27] VITALS: BP 97/57
--- NOTE | 2021-02-04 18:22 | NUR ---
I have reviewed this patient and I concur with the Shift Assessment completed by the Licensed Practical Nurse today this shift.
[2021-02-04 20:51] VITALS: BP 111/71
--- NOTE | 2021-02-04 23:28 | NUR ---
INITIAL ROUNDS COMPLETED AT 1920 HRS. NO DISTRESS NOTED. ASSESSMENT COMPLETED AT 1955 HRS. SR PER CM HR 90. VSS. ALERT AND ORIENTED TO PERSON, PLACE AND TIME. ESPINO. PALPABLE PERIPHERAL PULSES. LUNGS CTA. ABD SOFT WITH ACTIVE BS NOTED. IV TO LFA SL. PT HAS C/O CHEST PRESSURE. INFORMED NEXT MORPHNE DOSE AT 2100 HRS. PM MEDS GIVEN WELLAS MORPHINE 4MG SIVP. PT CURRENTLY WATCHING TV. CALL LIGHT WITHIN REACH.
--- NOTE | 2021-02-05 00:16 | NUR ---
PT RESTING WITH EYES CLOSED. RESP EVEN AND REGULAR. CALL LIGHT WITHIN REACH.
--- NOTE | 2021-02-05 01:14 | NUR ---
MORPHNE 4MG SIVP GIVEN FOR C/O CHEST PAIN AND PRESSURE. NO DISTRESS NOTED. CALL LIGHT WITHIN REACH.
[2021-02-05 01:50] VITALS: BP 103/73
--- NOTE | 2021-02-05 04:33 | NUR ---
PT RESTING WITH EYES CLOSED. RESP EVEN AND REGULAR. CALL LIGHT WITHIN REACH.
[2021-02-05] MEDS ORDERED: LYRICA25 MG PO (05:05)
[2021-02-05] MEDS ORDERED: OXYCODONE HCL5 M1 PO (05:07)
[2021-02-05 05:41] VITALS: BP 136/54
--- NOTE | 2021-02-05 06:30 | NUR ---
BEDSIDE REPORT RECIEVED. NO CURRENT PAIN OR DISTRESS. RESP EVEN AND UNLABORED ON ROOM AIR. IV TO LEFT FOREARM PATENT.
--- NOTE | 2021-02-05 06:40 | NUR ---
VSS THROUGHOUT NIGHT. SR PER CM. PT STATED MORPHINE CONTROLLED HIS CP. NEEDS MET; WILL CONTINUE TO MONITOR.
[2021-02-05 08:37] LABS: BASOPHILS 0.6 % (0-2); EOSINOPHILS 7.8 % (0-7); HEMATOCRIT 39.4 % (42.0-54.0); HEMOGLOBIN 13.5 g/dL (13.5-17.5); LYMPHOCYTES 40.3 % (15-50); MCH 34.7 pg (26.0-34.0); MCHC 34.3 g/dL (31.0-37.0); MCV 101.1 fL (80.0-100.0); MEAN PLATELET VOLUME 7.8 fL (7.4-10.4); NEUTROPHILS 39.3 % (40-80); PLATELET COUNT 162 10x3/uL (130-400); RDW 14.2 % (11.5-14.5)
[2021-02-05 09:05] LABS: WBC 5.9 10x3/uL (4.8-10.8)
[2021-02-05 09:11] VITALS: BP 112/71
--- NOTE | 2021-02-05 09:13 | NUR ---
PATIENT AWAKE AND ALERT. NO CURRENT DISTRESS. RESP EVEN AND UNLABORED CONTINUES ON ROOM AIR. IV TO RIGHT ARM PATENT AND SALINE LOCKED. LUNG SOUNDS CLEAR. HEART SOUNDS REGULAR RATE AND RYTHYM TELE IN PLACE. BOWEL SOUNDS ACTIVE X 4 QUADS. COMPLAINED OF CHEST PAIN MORPHINE ADMINISTERED WILL MONITOR FOR EFFECTIVENESS.
[2021-02-05 09:25] LABS: ALBUMIN 3.4 g/dL (3.4-5.0); ALKALINE PHOSPHATASE 80 U/L (30-120); ALT (SGPT) 129 U/L (10-68); BILIRUBIN - TOTAL 0.31 mg/dL (0.2-1.3); CALC OSMOLALITY 267 mosm/kg (275-300); CALCIUM 8.1 mg/dL (8.5-10.1); CARBON DIOXIDE 27.4 mmol/L (21.0-32.0); CHLORIDE - SERUM 98 mmol/L (98-107); CREATININE - SERUM 0.7 mg/dL (0.6-1.3); GLUCOSE 123 mg/dL (74-106); MAGNESIUM - SERUM 2.2 mg/dL (1.8-2.4); PHOSPHOROUS 3.8 mg/dL (2.5-4.9); POTASSIUM - SERUM 3.9 mmol/L (3.5-5.1); PROTEIN - SERUM 6.9 g/dL (6.4-8.2); SODIUM 134 mmol/L (136-145); eGFR NON AFRICAN AMERICAN > 90 mL/min (90-120)
[2021-02-05 09:26] LABS: UREA NITROGEN 9 mg/dL (7-18)
[2021-02-05] MEDS ORDERED: RANEXA500 MG PO (09:36)
[2021-02-05] MEDS ORDERED: CARAFATE1 G PO (09:36)
--- NOTE | 2021-02-05 10:24 | MORECARE ---
CASE MANAGEMENT DISCHARGE SUMMARY PATIENT: TORI YAÑEZ UNIT: [id number] ADM DATE: 02/03/21 AGE: 50 : 72 SEX: M ROOM/BED: D.7143 AUTHOR: EUNICEDOC PHYSICIAN: REFERRING PHYSICIAN: CHARLEE FULTON MD DATE OF SERVICE: 02/05/21 Case Management Discharge Planning Summary COMMENTS ENTERED DATE: 02/05/21 10:21 CT COMMENT TYPE: Discharge Planning REVIEWER: Gu[place] CM met with patient to complete DC plan and to evaluate needs. Patient lives independently with family and stated that his person to notify is his mother, Adrianna Yañez, . Patient stated that his home is safe and has electricity and running water. Patient stated that the home has 3 steps to enter and he is able to manage the steps without difficulty. Patient stated that he has no problems paying for medications and he fills his medications at [facility] on [address] [facility]. Patient stated that his primary care physician is Dr. Prado. At discharge, the patient plans to return home and feels this is a safe discharge. CM discussed availability of home health, rehab services, and medical equipment. Patient declined HHS, SNF, IPR, and DME. Patient voiced no other needs at this time and is satisfied with DC plan. Transportation provider at discharge will be with person. DC IMM delivered, explained, signed by the patient, and placed in chart. Signed form also left with the patient. CM will continue to follow and will assist as needed with dc plans/needs. DCP REVIEW SUMMARY ANTICIPATED D/C DATE: 02/05/2021 EXPECTED LOS : 2 CASE STATUS: DCP Initiated INITIAL REVIEW: 02/03/2021 INITIAL REVIEWER: Guillermo [place] FINAL DISCHARGE DISPOSITION: : FINAL REVIEWER: FINAL REVIEW DATE: DCP Focus Questions & Answers DCP Evaluation QUESTION: ANSWER Patient and/or caregiver agree upon recommended discharge plan? : Yes Family / Caregiver's ability to cope with chronic illness: : a. Adequate (ability to meet patient's medical needs, ensures patient attends medical appts.) Patient's current cognitive status: : *Oriented to person, place, situation, time and present Patient's ability to cope with chronic illness : d. No chronic illness Patient gives permission to discuss discharge plans with: (name, relationship and number) : motherAdrianna, Does the patient have the ability to pay for or attain post discharge needs / services? : Yes Functional screen assessment: : Basic needs can adequately be met by self Family / Caregiver's ability to cope with chronic illness: : a. Adequate (ability to meet patient's medical needs, ensures patient attends medical appts.) Physical Status: : Independent with ADL's Equipment needed for post hospitalization: : None Is there a likelihood that the patient will require additional services to return to the preadmission environment? : Yes Living Arrangements: : Home with Parents Patient with capacity for self-care or can be cared for in same environment as prior to hospitalization? : Yes Baseline cognitive status: : *Oriented to person, place, situation, time and present Physical environment modification needed / anticipated for discharge: : No Medication Management: : Patient states can read and understand medication labels Medication Management: : Patient states can afford medications Pharmacy name(s): : [facility] [address] [facility]. Does Patient have transportation to get home and to follow-up medical appointments when discharged from the hospital? : Yes Would patient like to participate in any Care Coordination programs (if applicable): : Not applicable Does the patient have electricity at home? : Yes Does the patient have running water in their house? : Yes Equipment in use: : None Mental health screen: : No mental health history DCP Re-evaluation QUESTION: ANSWER Would patient like to participate in any Care Coordination programs (if applicable): : Not applicable PATIENT: TORI YAÑEZ ENCOUNTER: [id number] MEDICAL RECORD#: [id number] ADMISSION DATE: 02/03/2021 DISCHARGE DATE: ATTENDING MD: AJ: AGE: 50 MARITAL STATUS: M DC PLAN ID: [id number] FACILITY: [facility] PRINTED ON: 02/05/21 10:24 CT All edits/amendments must be made on the electronic document DICTATION DATE: 02/05/21 1024 STEM ROLLER OR CRUSHER OPERATOR: JON 02/05/21 1024 RPT#: [id number] DC DATE: STATUS: ADM IN [facility] [address] [place] [address] END OF REPORT
[2021-02-05] MEDS ORDERED: IBUPROFEN800 MG PO (10:59)
--- NOTE | 2021-02-05 11:31 | MORECARE ---
CASE MANAGEMENT DISCHARGE SUMMARY PATIENT: TORI YAÑEZ UNIT: [id number] ADM DATE: 02/03/21 AGE: 50 : 72 SEX: M ROOM/BED: D.4312 AUTHOR: EUNICEDOC PHYSICIAN: REFERRING PHYSICIAN: CHARLEE FULTON MD DATE OF SERVICE: 02/05/21 Case Management Discharge Planning Summary COMMENTS ENTERED DATE: 02/05/21 10:21 CT COMMENT TYPE: Discharge Planning REVIEWER: Guillermo [place] CM met with patient to complete DC plan and to evaluate needs. Patient lives independently with family and stated that his person to notify is his mother, Adrianna Yañez, . Patient stated that his home is safe and has electricity and running water. Patient stated that the home has 3 steps to enter and he is able to manage the steps without difficulty. Patient stated that he has no problems paying for medications and he fills his medications at [facility] on [address] [facility]. Patient stated that his primary care physician is Dr. Prado. At discharge, the patient plans to return home and feels this is a safe discharge. CM discussed availability of home health, rehab services, and medical equipment. Patient declined HHS, SNF, IPR, and DME. Patient voiced no other needs at this time and is satisfied with DC plan. Transportation provider at discharge will be with person. DC IMM delivered, explained, signed by the patient, and placed in chart. Signed form also left with the patient. CM will continue to follow and will assist as needed with dc plans/needs. DCP REVIEW SUMMARY ANTICIPATED D/C DATE: 02/05/2021 EXPECTED LOS : 2 CASE STATUS: DCP Initiated INITIAL REVIEW: 02/03/2021 INITIAL REVIEWER: Guillermo [place] FINAL DISCHARGE DISPOSITION: : FINAL REVIEWER: FINAL REVIEW DATE: DCP Focus Questions & Answers DCP Evaluation QUESTION: ANSWER Patient and/or caregiver agree upon recommended discharge plan? : Yes Family / Caregiver's ability to cope with chronic illness: : a. Adequate (ability to meet patient's medical needs, ensures patient attends medical appts.) Patient's current cognitive status: : *Oriented to person, place, situation, time and present Patient's ability to cope with chronic illness : d. No chronic illness Patient gives permission to discuss discharge plans with: (name, relationship and number) : motherAdrianna, Does the patient have the ability to pay for or attain post discharge needs / services? : Yes Functional screen assessment: : Basic needs can adequately be met by self Family / Caregiver's ability to cope with chronic illness: : a. Adequate (ability to meet patient's medical needs, ensures patient attends medical appts.) Physical Status: : Independent with ADL's Equipment needed for post hospitalization: : None Is there a likelihood that the patient will require additional services to return to the preadmission environment? : Yes Living Arrangements: : Home with Parents Patient with capacity for self-care or can be cared for in same environment as prior to hospitalization? : Yes Baseline cognitive status: : *Oriented to person, place, situation, time and present Physical environment modification needed / anticipated for discharge: : No Medication Management: : Patient states can read and understand medication labels Medication Management: : Patient states can afford medications [facility](s): : [facility] [address] [facility]. Does Patient have transportation to get home and to follow-up medical appointments when discharged from the hospital? : Yes Would patient like to participate in any Care Coordination programs (if applicable): : Not applicable Does the patient have electricity at home? : Yes Does the patient have running water in their house? : Yes Equipment in use: : None Mental health screen: : No mental health history DCP Re-evaluation QUESTION: ANSWER Would patient like to participate in any Care Coordination programs (if applicable): : Not applicable PATIENT: TORI YAÑEZ ENCOUNTER: [id number] MEDICAL RECORD#: [id number] ADMISSION DATE: 02/03/2021 DISCHARGE DATE: 02/05/2021 ATTENDING MD: AJ: AGE: 50 MARITAL STATUS: M DC PLAN ID: [id number] FACILITY: [facility] PRINTED ON: 02/05/21 11:30 CT All edits/amendments must be made on the electronic document DICTATION DATE: 02/05/21 113 MIXOLOGIST: JON 02/05/21 113 RPT#: [id number] DC DATE:02/05/21 STATUS: DIS IN [facility] [address] [place] [address] END OF REPORT
--- NOTE | 2021-02-06 17:51 | MORECARE ---
CASE MANAGEMENT DISCHARGE SUMMARY PATIENT: TORI YAÑEZ UNIT: [id number] ADM DATE: 02/03/21 AGE: 50 : 72 SEX: M ROOM/BED: D.7373 AUTHOR: EUNICE,DOC PHYSICIAN: REFERRING PHYSICIAN: CHARLEE FULTON MD DATE OF SERVICE: 02/06/21 Case Management Discharge Planning Summary COMMENTS ENTERED DATE: 02/05/21 10:21 CT COMMENT TYPE: Discharge Planning REVIEWER: Gu[place] CM met with patient to complete DC plan and to evaluate needs. Patient lives independently with family and stated that his person to notify is his mother, Adrianna Yañez, . Patient stated that his home is safe and has electricity and running water. Patient stated that the home has 3 steps to enter and he is able to manage the steps without difficulty. Patient stated that he has no problems paying for medications and he fills his medications at [facility] on [address] [facility]. Patient stated that his primary care physician is Dr. Prado. At discharge, the patient plans to return home and feels this is a safe discharge. CM discussed availability of home health, rehab services, and medical equipment. Patient declined HHS, SNF, IPR, and DME. Patient voiced no other needs at this time and is satisfied with DC plan. Transportation provider at discharge will be with person. DC IMM delivered, explained, signed by the patient, and placed in chart. Signed form also left with the patient. CM will continue to follow and will assist as needed with dc plans/needs. DCP REVIEW SUMMARY ANTICIPATED D/C DATE: 02/05/2021 EXPECTED LOS : 2 CASE STATUS: DCP Complete INITIAL REVIEW: 02/03/2021 INITIAL REVIEWER: Guillermo [place] FINAL DISCHARGE DISPOSITION: : FINAL REVIEWER: FINAL REVIEW DATE: DCP Focus Questions & Answers DCP Evaluation QUESTION: ANSWER Family / Caregiver's ability to cope with chronic illness: : a. Adequate (ability to meet patient's medical needs, ensures patient attends medical appts.) Patient gives permission to discuss discharge plans with: (name, relationship and number) : motherAdrianna, Patient's ability to cope with chronic illness : d. No chronic illness Patient's current cognitive status: : *Oriented to person, place, situation, time and present Patient and/or caregiver agree upon recommended discharge plan? : Yes Physical Status: : Independent with ADL's Family / Caregiver's ability to cope with chronic illness: : a. Adequate (ability to meet patient's medical needs, ensures patient attends medical appts.) Functional screen assessment: : Basic needs can adequately be met by self Does the patient have the ability to pay for or attain post discharge needs / services? : Yes Living Arrangements: : Home with Parents Is there a likelihood that the patient will require additional services to return to the preadmission environment? : Yes Equipment needed for post hospitalization: : None Baseline cognitive status: : *Oriented to person, place, situation, time and present Patient with capacity for self-care or can be cared for in same environment as prior to hospitalization? : Yes Physical environment modification needed / anticipated for discharge: : No Medication Management: : Patient states can afford medications Medication Management: : Patient states can read and understand medication labels Pharmacy name(s): : [facility] [facility]. Does Patient have transportation to get home and to follow-up medical appointments when discharged from the hospital? : Yes Would patient like to participate in any Care Coordination programs (if applicable): : Not applicable Does the patient have electricity at home? : Yes Does the patient have running water in their house? : Yes Equipment in use: : None Mental health screen: : No mental health history DCP Re-evaluation QUESTION: ANSWER Would patient like to participate in any Care Coordination programs (if applicable): : Not applicable PATIENT: TORI YAÑEZ ENCOUNTER: [id number] MEDICAL RECORD#: [id number] ADMISSION DATE: 02/03/2021 DISCHARGE DATE: 02/05/2021 ATTENDING MD: AJ: AGE: 50 MARITAL STATUS: M DC PLAN ID: [id number] FACILITY: [facility] PRINTED ON: 02/06/21 17:51 CT All edits/amendments must be made on the electronic document DICTATION DATE: 02/06/211750 [employer] SPANISH TEACHER: JON 02/06/211750 RPT#: [id number] DC DATE:02/05/21 STATUS: DIS IN [facility] [address] [place] [address] END OF REPORT
== END 2021-02-05 11:23 | disposition home or self-care (01) | DRG 303 ==
LOC: D.ER 17:45 → D.EDHOLD 23:38 → D.M2 23:38
PROVIDERS: Emergency Medicine; Family Medicine; ADMIT Family Medicine; ATTEND Family Medicine
DX: I25.110 Atherosclerotic heart disease of native coronary artery with unstable angina pectoris (principal); I50.22 Chronic systolic (congestive) heart failure; I25.5 Ischemic cardiomyopathy; R07.9 Chest pain, unspecified; I11.0 Hypertensive heart disease with heart failure; R55 Syncope and collapse; G40.909 Epilepsy, unspecified, not intractable, without status epilepticus; F31.9 Bipolar disorder, unspecified; Z95.1 Presence of aortocoronary bypass graft; E78.5 Hyperlipidemia, unspecified; Z72.0 Tobacco use